=== PATIENT | female | born 1950 | race Caucasian/White ===

== ENCOUNTER 2016-10-13 11:00 | Inpatient (IN) | payer MEDICARE ==
[~2016-10-13 11:00] MED LIST: Buffered Lidocaine 1% SYRIN* 3 ML/SYR SYRINGE INTRADERM ONE; Dexamethasone TAB* 4 MG ONE; Dexamethasone TAB* 4 MG PO ONE; Famotidine IV* 10 MG/ML 2 ML (20 mg) IV ONE; Famotidine IV* 10 MG/ML 2 ML (20 mg) ONE; Gabapentin CAP(*) 300 MG ONE; Gabapentin CAP(*) 300 MG PO ONE; Morphine INJ* 2 MG/ML 1 ML SYRINGE IV PRN; PROCHLORPERAZINE INJ 5 MG/ML 2 ML VIAL IV PRN; fentaNYL* 50 MCG/ML 2 ML VIAL (100 MCG VIAL) IV PRN; oxyCODONE/Acetamin 5/325 MG* TAB PO PRN
[2016-10-13] MEDS ORDERED: Oxymetazoline 0.05% NASAL SPR* 15 ML BTL ONE (12:03)
[2016-10-13] MEDS ORDERED: EPINEPHrine AMP 1 MG/ML ONE (12:03)
[2016-10-13] MEDS ORDERED: Lidocaine 4% TOPICAL* 50 ML TOP.SOLN ONE (12:03)
[2016-10-13] MEDS ORDERED: KETAMINE HCL* 50 MG/ML 10 ML VIAL ONE (12:08)
[2016-10-13] MEDS ORDERED: Midazolam* 1 MG/ML 5 ML VIAL (5 MG) ONE (12:08)
[2016-10-13] MEDS ORDERED: fentaNYL* 50 MCG/ML 2 ML VIAL (100 MCG VIAL) ONE (12:08)
[2016-10-13] MEDS ORDERED: Atracurium* 10 MG/ML 10 ML VIAL ONE (12:08)
[2016-10-13] MEDS ORDERED: Phenylephrine INJ* 10 MG/ML 1 ML VIAL (10 MG) ONE (12:09)
[2016-10-13] MEDS ORDERED: Lidocaine 1% MPF wEPI 200,000* 30 ML SDV ONE (12:55)
[2016-10-13] MEDS ORDERED: Lidocaine 2% PF* 5 ML VIAL ONE (13:20)
[2016-10-13] MEDS ORDERED: Neostigmine Methylsulfate* 2 MG/2 ML SYRINGE ONE (13:20)
[2016-10-13] MEDS ORDERED: Propofol* 10 MG/ML 20 ML BTL IV PUSH ONE (13:20)
[2016-10-13] MEDS ORDERED: Glycopyrrolate IV* 0.2 MG/ML 1 ML VIAL ONE (13:20)
[2016-10-13] MEDS ORDERED: Ondansetron INJ* 2 MG/ML VIAL ONE (13:21)
[2016-10-13] MEDS ORDERED: Morphine INJ* 2 MG/ML 1 ML SYRINGE ONE (13:57)
[2016-10-13] MEDS ORDERED: Albuterol 2.5 MG/3 ML NEB.SOL* (0.083%) ONE (13:59)
[2016-10-13] MEDS ORDERED: Morphine INJ* 4 MG/ML 1 ML SYRINGE ONE ×2 (14:02→14:10)
[2016-10-13] MEDS ORDERED: LORazepam INJ* 2 MG/ML 1 ML VIAL ONE (14:08)
[2016-10-13] MEDS ORDERED: Morphine INJ* 2 MG/ML 1 ML SYRINGE IV ONE (14:26)
[2016-10-13] MEDS ORDERED: Morphine INJ* 4 MG/ML 1 ML SYRINGE IV ONE ×2 (14:26)
[2016-10-13] MEDS ORDERED: LORazepam INJ* 2 MG/ML 1 ML VIAL IV PUSH ONE ×2 (14:27)
--- NOTE | 2016-10-13 15:13 | PN ---
Progress Note - Progress Note Note: CRITICAL CARE MEDICINE DATE: 10/13/16 TIME: 1430 PRIMARY CARE PROVIDER: Kady REFERRING PROVIDER: Neeta REASON/CHIEF COMPLAINT: post op elective trach HISTORY OF PRESENT ILLNESS: 66 F with h/o throat ca s/p chemo, xrt this past fall, moved her from [place] and presented to ENT with laryngeal edema and airway compromise needing semi-urgent trach. No issues intraop today and recovery phase in ICU. D/w Dr. Santacruz and [place]. Pt off vent and o2 maintained but post anesthesia c/o "can't breath". Prolonged exhalation. Bloody secretions from #6 cuffed fenestrated trach. Dropped cuff to help flow. Given morphine and ativan in succession and some better flow states but still showing signs of air hunger. Again sats fine on 40% tc and hr 70s; bp on the rise. Albuterol neb given and not great change. Further sedatives. Pt still with complaint. Placed on cpap via vent and will allow her to equilibrate her flow status and new trach resistance before she puts herself into neg pressure diastolic failure. REVIEW OF SYSTEMS: As per HPI. PAST MEDICAL HISTORY: As per HPI. 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 ALLERGIES: PCN. SOCIAL HISTORY: Reviewed. +tob. daughter present. FAMILY HISTORY: Noncontributory at present. PHYSICAL EXAM: Vital Signs: Reviewed. as above on exaam Neurologic: awake, communicating, nonfocal. very anxious HEENT: anicteric, trach [address] Cardiovascular: distant, S1, S2 Respiratory: dec bs bl R>L. supraclavicular bullae Abdomen: obese, soft Extremities: no edema, warm, chronic changes Access: piv LABS: Reviewed. IMAGING: Reviewed. MEDICATIONS: Reviewed. ASSESSMENT: 66 F s/p trach for laryngeal edema/obstruction acute post op, non thoracic, resp failure currently with copd exac component - more sec to flow phases of obstructive resistance rather then inflammation trigger. severe anxiety disorder tobacco abuse PLAN: Neurologic: needs anxiolytics now plus morphine to allow her to equilibrate better flow states and exhalation phase. Cardiovascular: perfused. receiving post op fluids. Respiratory: place on cpap. community living coach use with trach. allow her to equilibrate with cpap over next hour or so and then return off to tc. check cxr and looks stable. etco2 high 30s. keep nebs, rx. Gastrointestinal: npo currently. would give her oral intake a break and allow edema to improve prior to re-into food when off vent and with swallow eval and coaching for diet. had prior peg but did not use. Renal/Metabolic: lytes ok for preop check. can eval tomorrow as needed. Infectious Disease: standard scip needs Hematology: was anemic. can f/u in am. Endocrine: no need currently for steroids sec to copd component, but f/u any needs Musculoskeletal: oob as able. see if she will need pt Psych/Social: resume rx with po. family updated Supportive and preventative care as ordered. SUP: ppi VTE prophylaxis: heparin Weinstein catheter given critical illness, monitoring needs for accurate assessment of NAOMI and KDIGO criteria for critically ill patients and to avoid potential harms of urinary retention, skin breakdown/ulcers. Disposition: ICU Code Status: Full D/w Dr. Barr Critical Care Time: 45min F. Gerald Ballesteros DO
--- NOTE | 2016-10-13 15:17 | RAD ---
INDICATION: Status post tracheostomy, shortness of breath. COMPARISON: Comparison is made with a prior chest x-ray study from June 12, 2016. TECHNIQUE: A portable view of the chest was obtained. FINDINGS: The patient is status post tracheostomy. There is a tracheostomy tube which projects over the midline. The heart appears mildly enlarged. There is mild diffuse prominence of the interstitial markings. The lungs are underinflated. IMPRESSION: FINDINGS SUGGESTIVE OF CONGESTIVE HEART FAILURE.
[2016-10-13] MEDS: Albuterol 2.5 MG/3 ML NEB.SOL* (0.083%) INH SCH ×2 (16:19→19:43)
[2016-10-13] MEDS ORDERED: Ondansetron INJ* 2 MG/ML VIAL IV PRN (16:42)
[2016-10-13] MEDS ORDERED: Acetaminophen TAB* 325 MG PO PRN (18:17)
[2016-10-13] MEDS: LORazepam INJ* 2 MG/ML 1 ML VIAL IV PUSH PRN (20:13)
[2016-10-13] MEDS: Heparin VIAL(*) 5000 UNITS/ML VIAL (FIVE THOUSAND) SUBCUT SCH (22:27)
[2016-10-14] MEDS: Albuterol 2.5 MG/3 ML NEB.SOL* (0.083%) INH SCH ×4 (01:03→19:15)
[2016-10-14] MEDS: fentaNYL* 50 MCG/ML 2 ML VIAL (100 MCG VIAL) IV SLOW PU PRN ×6 (01:11→18:13)
--- NOTE | 2016-10-14 01:30 | OP ---
DATE OF OPERATION: 10/13/16 - ROOM #ICU-05 DATE OF : 48 SURGEON: Paulo Barr MD FLOOR WAXER: Alec House MD ANESTHESIOLOGIST: Haroon Doshi MD ANESTHESIA: General PRE-OP DIAGNOSIS: Personal history of laryngeal cancer with significant amount of laryngeal edema and pending airway obstruction. POST-OP DIAGNOSIS: Personal history of laryngeal cancer with significant amount of laryngeal edema and pending airway obstruction. OPERATIVE PROCEDURE: Tracheostomy under local anesthesia followed by laryngoscopy under general anesthesia. COMPLICATIONS: None. DISPOSITION: Good. SPECIMEN: None. ESTIMATED BLOOD LOSS: Minimal. DESCRIPTION OF PROCEDURE: The patient was taken to the operating room, put on a semi-recumbent position on the operating room table. She was being monitored and given oxygen. Her neck was prepped with Betadine. She was draped and then injected with 1% lidocaine with 1:100,000 epinephrine. A vertical incision was made over the anterior trachea. The anterior fat was defatted. The median raphe was opened and strap muscles retracted laterally. The isthmus of the thyroid was cut, revealing the anterior tracheal wall. An 11 blade was used to open up her tracheal rings widened with a Barnett. #6 Shiley was placed. Some Surgicel was placed around this. The trach was sutured in place. Trach tie placed. While we were finishing up, she was converted over to a full general anesthesia. She was turned and draped for laryngoscopy. She has lot of laryngeal edema, edematous material hooding her epiglottis. The vocal cords did appear clear. There was nothing that what was apparent for cancer. ASSESSMENT: The patient is doing well. Transferred out of the operating room in stable condition. [id number]/CPS #: [id number] [facility]
[2016-10-14 06:03] LABS: Hematocrit 25 % (35-47); Hemoglobin 7.8 g/dl (12.0-16.0); Mean Corpuscular HGB Conc 31 g/dl (31-36); Mean Corpuscular Hemoglobin 24 pg (27-31); Mean Corpuscular Volume 77 fL (80-97); Mean Platelet Volume 8 um3 (7.4-10.4); Red Blood Count 3.22 10^6/ul (4.0-5.4); Red Cell Distribution Width 18 % (10.5-15); White Blood Count 6.6 10^3/ul (3.5-10.8)
[2016-10-14 06:19] LABS: BUN/Creatinine Ratio 25.8 (8-20); EGFR African American 81.4 (>60); EGFR Non-African American 63.3 (>60); Magnesium 1.8 mg/dL (1.9-2.7); Phosphorus 3.3 mg/dL (2.5-5.0); Potassium 3.9 mmol/L (3.5-5.0)
[2016-10-14] MEDS: Heparin VIAL(*) 5000 UNITS/ML VIAL (FIVE THOUSAND) SUBCUT SCH ×3 (06:41→21:20)
[2016-10-14] MEDS: Pantoprazole IV* 40 MG IV SCH (07:44)
[2016-10-14] MEDS: LORazepam INJ* 2 MG/ML 1 ML VIAL IV PUSH PRN ×3 (08:17→23:48)
[2016-10-14] MEDS ORDERED: Magnesium Sulfate 2 GM IV* 2 GM/50 ML BAG IVPB ONE (09:48)
--- NOTE | 2016-10-14 12:17 | PN ---
Progress Note - Progress Note Note: CRITICAL CARE MEDICINE DATE: 10/14/16 TIME: 830 SUBJECTIVE: Patient seen and examined. PHYSICAL EXAM: Vital Signs: Reviewed. Neurologic: awake, communicating, writing. less anxious HEENT: anicteric, trach [address] Cardiovascular: distant, S1, S2 Respiratory: dec bs but better phases Abdomen: obese, soft Extremities: no edema, warm Access: piv LABS: Reviewed. IMAGING: Reviewed. MEDICATIONS: Reviewed. ASSESSMENT: 66 F s/p trach for laryngeal edema/obstruction acute post op, non thoracic, resp failure - recovering severe anxiety disorder tobacco abuse PLAN: Neurologic: prn anxiolytics. pain management. Cardiovascular: perfused. gentle ivf today. Respiratory:will try to avoid further ppv. tc. cuff down. Gastrointestinal: npo currently. would give her time and test for swallow ability. told her to go slow with things and get it right - this seems difficult for her. Renal/Metabolic: lytes ok. replete mg Infectious Disease: no needs Hematology: was anemic pre-op and only mildly less. no indication for transfusion yet. Endocrine: ok Musculoskeletal: oob as able. Psych/Social: resume rx when po. family updated at bedside Supportive and preventative care as ordered. SUP: ppi VTE prophylaxis: heparin Weinstein catheter given critical illness, monitoring needs for accurate assessment of NAOMI and KDIGO criteria for critically ill patients and to avoid potential harms of urinary retention, skin breakdown/ulcers. Disposition: ICU today Code Status: Full Critical Care Time: 30min Donta Ballesteros DO
[2016-10-14] MEDS: D5W 20 MEQ KCL 1000 ML BAG* 1,000 ML IV SCH (13:37)
[2016-10-15] MEDS: Albuterol 2.5 MG/3 ML NEB.SOL* (0.083%) INH SCH ×4 (01:18→21:24)
[2016-10-15] MEDS: fentaNYL* 50 MCG/ML 2 ML VIAL (100 MCG VIAL) IV SLOW PU PRN ×5 (02:50→23:39)
[2016-10-15] MEDS: D5W 20 MEQ KCL 1000 ML BAG* 1,000 ML IV SCH (03:08)
[2016-10-15] MEDS: Heparin VIAL(*) 5000 UNITS/ML VIAL (FIVE THOUSAND) SUBCUT SCH ×3 (06:56→20:55)
[2016-10-15] MEDS: LORazepam INJ* 2 MG/ML 1 ML VIAL IV PUSH PRN ×3 (07:14→21:08)
[2016-10-15] MEDS: Pantoprazole IV* 40 MG IV SCH (09:23)
[2016-10-15] MEDS ORDERED: D5W 20 MEQ KCL 1000 ML BAG* 1,000 ML IV SCH (10:30)
[2016-10-15] MEDS ORDERED: cloNIDine 0.1 MG PATCH* 0.1 MG/24 HR 7 DAY PATCH TRANSDERM SCH (11:00)
--- NOTE | 2016-10-15 11:07 | PN ---
Progress Note - Progress Note Note: CRITICAL CARE MEDICINE DATE: 10/15/16 TIME: 825 SUBJECTIVE: Patient seen and examined. PHYSICAL EXAM: Vital Signs: Reviewed. Neurologic: awake, communicating. less anxious, but little tires. HEENT: anicteric, trach 6 Cardiovascular: distant, S1, S2 Respiratory: dec overall bs but stable Abdomen: obese, soft Extremities: no edema, warm Access: piv LABS: Reviewed. IMAGING: Reviewed. MEDICATIONS: Reviewed. ASSESSMENT: 66 F s/p trach for laryngeal edema/obstruction acute post op, non thoracic, resp failure - recovering copd severe anxiety disorder tobacco abuse PLAN: Neurologic: prn anxiolytics. pain management. stable. Cardiovascular: perfused. dec ivf today. bp remains up. with lack of po and anxiety ailment, trial 0.1mg td clonidine for few days to see if beneifit combo until taking po and then convert to alternatives as needed. Respiratory: tello. trach education and equilibration continues. nebs. Gastrointestinal: npo currently. swallow eval sunday am. see how she does and hope to avoid ng. on d5 for now. Renal/Metabolic: check bmp robinson. Infectious Disease: no needs Hematology: f/u cbc in am. Endocrine: ok Musculoskeletal: oob. pt if needed Psych/Social: resume rx when po. family updated at bedside Supportive and preventative care as ordered. SUP: ppi VTE prophylaxis: heparin Disposition: ICU today given rescue suctioning this am and floor tomorrow Code Status: Full Critical Care Time: 25min Donta Ballesteros DO
[2016-10-16] MEDS: Albuterol 2.5 MG/3 ML NEB.SOL* (0.083%) INH SCH ×4 (01:00→21:21)
[2016-10-16] MEDS: LORazepam INJ* 2 MG/ML 1 ML VIAL IV PUSH PRN ×3 (01:05→14:22)
[2016-10-16 05:56] LABS: Hematocrit 26 % (35-47); Hemoglobin 8.2 g/dl (12.0-16.0); Mean Corpuscular HGB Conc 32 g/dl (31-36); Mean Corpuscular Hemoglobin 24 pg (27-31); Mean Corpuscular Volume 76 fL (80-97); Mean Platelet Volume 7 um3 (7.4-10.4); Red Blood Count 3.42 10^6/ul (4.0-5.4); Red Cell Distribution Width 18 % (10.5-15)
[2016-10-16] MEDS: Heparin VIAL(*) 5000 UNITS/ML VIAL (FIVE THOUSAND) SUBCUT SCH ×3 (05:57→21:58)
[2016-10-16 06:12] LABS: BUN/Creatinine Ratio 12.2 (8-20); Calcium 8.7 mg/dL (8.6-10.3); EGFR African American 100.7 (>60); EGFR Non-African American 78.3 (>60); Phosphorus 3.3 mg/dL (2.5-5.0); Potassium 3.7 mmol/L (3.5-5.0)
[2016-10-16] MEDS: fentaNYL* 50 MCG/ML 2 ML VIAL (100 MCG VIAL) IV SLOW PU PRN ×2 (06:30→11:53)
[2016-10-16] MEDS: Pantoprazole IV* 40 MG IV SCH (08:49)
[2016-10-16] MEDS ORDERED: clonazePAM TAB(*) 0.5 MG PO PRN (12:36)
--- NOTE | 2016-10-16 12:45 | PN ---
Progress Note - Progress Note Note: CRITICAL CARE MEDICINE DATE: 10/16/16 TIME: 930 SUBJECTIVE: Patient seen and examined. PHYSICAL EXAM: Vital Signs: Reviewed. Neurologic: awake, communicating. HEENT: anicteric, trach 6 Cardiovascular: distant, S1, S2 Respiratory: dec overall bs but stable Abdomen: obese, soft Extremities: no edema, warm Access: piv LABS: Reviewed. IMAGING: Reviewed. MEDICATIONS: Reviewed. ASSESSMENT/PLAN: 66 F s/p trach for laryngeal edema/obstruction - ENT f/u; resp f/u for trach care needs. social work f/u for dispo planning acute post op, non thoracic, resp failure - recovering; o2 copd - neb management. O2. did not require steroids. f/u out rx needs. severe anxiety disorder - antivan, prn xanax HTN - start to add back home meds. on clonidine td already and adding back bb and acei. depression - prosac resumed tobacco abuse - re-discuss plans advance diet now that she has passed swallow. oob. ambulate. Supportive and preventative care as ordered. SUP: ppi po VTE prophylaxis: heparin Disposition: to surg floor Code Status: Full Critical Care Time: 25min FBryan Ballesteros DO
[2016-10-16] MEDS ORDERED: Spiriva Inhaler DEVICE* 1 EACH DEVICE INH ONE (15:00)
[2016-10-16] MEDS: Tiotropium CAP.INH* CAP.INH/18 MCG INH SCH (16:38)
[2016-10-16] MEDS: FLUoxetine CAP* 20 MG PO SCH (16:41)
[2016-10-16] MEDS: oxyCODONE ORAL.SOLN* 5 MG/5 ML UDC PO PRN ×2 (16:47→21:17)
[2016-10-16] MEDS: Metoprolol Tartrate TAB* 50 mg PO SCH (21:15)
[2016-10-16] MEDS: Albuterol/Ipratropium NEB.SOL* Albuterol 2.5 MG/Ipratropium 0.5 MG 3 ML INH SCH (21:21)
[2016-10-16] MEDS: Budesonide NEB* 0.5 MG/2 ML NEB.SOLN INH SCH (21:21)
[2016-10-17] MEDS: Albuterol/Ipratropium NEB.SOL* Albuterol 2.5 MG/Ipratropium 0.5 MG 3 ML INH SCH ×4 (05:38→20:40)
[2016-10-17] MEDS: Omeprazole CAP* 20 MG PO SCH (05:56)
[2016-10-17] MEDS: Heparin VIAL(*) 5000 UNITS/ML VIAL (FIVE THOUSAND) SUBCUT SCH ×3 (05:57→22:17)
[2016-10-17] MEDS: Budesonide NEB* 0.5 MG/2 ML NEB.SOLN INH SCH ×2 (07:55→20:39)
[2016-10-17] MEDS: Tiotropium CAP.INH* CAP.INH/18 MCG INH SCH (07:55)
[2016-10-17] MEDS: Metoprolol Tartrate TAB* 50 mg PO SCH (09:46)
[2016-10-17] MEDS: oxyCODONE ORAL.SOLN* 5 MG/5 ML UDC PO PRN ×3 (09:51→22:16)
[2016-10-17] MEDS: Aspirin EC Low Dose* 81 MG TAB.EC PO SCH (09:53)
[2016-10-17] MEDS: FLUoxetine CAP* 20 MG PO SCH (09:53)
[2016-10-17] MEDS: Lisinopril TAB* 5 MG PO SCH (09:53)
[2016-10-17] MEDS: Theophylline TAB* 300 MG PO SCH (10:01)
--- NOTE | 2016-10-17 11:48 | PN ---
Subjective Date of Service: 10/17/16 Interval History: Pt is feeling ok. She was just working with speech therapy doing a blue dye test. She is having a harder time with the nectar thick liquids and has been coughing after taking in some of the water with blue dye. She c/o pain all over but states that is her regular. Objective Active Medications: Acetaminophen (Tylenol Tab*) 650 mg PO Q4H PRN PRN Reason: PAIN Albuterol (Ventolin 2.5 Mg/3 Ml Neb.Zoe*) 2.5 mg INH Q2H PRN PRN Reason: SOB/WHEEZING Albuterol/Ipratropium (Duoneb (Albuterol 2.5 Mg/Ipratropium 0.5 Mg)) 1 neb INH [id number] AWAKE [facility] Last Admin: 10/17/16 07:55 Dose: 1 neb Aspirin (Aspirin Ec Low Dose*) 81 mg PO DAILY [facility] Last Admin: 10/17/16 09:53 Dose: 81 mg Budesonide (Pulmicort Neb*) 0.5 mg INH RT.BID [facility] Last Admin: 10/17/16 07:55 Dose: 0.5 mg Fluoxetine HCl (Prozac Cap*) 40 mg PO DAILY [facility] Last Admin: 10/17/16 09:53 Dose: 40 mg Heparin Sodium (Porcine) (Heparin Vial(*)) 5,000 units SUBCUT Q8HR [facility] Last Admin: 10/17/16 05:57 Dose: 5,000 units Lisinopril (Prinivil Tab*) 5 mg PO DAILY [facility] Last Admin: 10/17/16 09:53 Dose: 5 mg Lorazepam (Ativan Inj*) 1 mg IV PUSH Q4H PRN PRN Reason: ANXIETY Last Admin: 10/16/16 14:22 Dose: 1 mg Metoprolol Tartrate (Lopressor Tab*) 25 mg PO Q12HR [facility] Omeprazole (Prilosec Cap*) 20 mg PO DAILY@0600 [facility] Last Admin: 10/17/16 05:56 Dose: 20 mg Ondansetron HCl (Zofran Inj*) 4 mg IV Q6H PRN PRN Reason: NAUSEA Oxycodone HCl (Oxycodone Oral.Soln*) 5 mg PO Q4H PRN PRN Reason: PAIN Last Admin: 10/17/16 09:51 Dose: 5 mg Oxycodone HCl (Oxycodone Oral.Soln*) 10 mg PO Q4H PRN PRN Reason: PAIN - SEVERE Last Admin: 10/16/16 16:47 Dose: 10 mg Theophylline (Aayush Dur*) 300 mg PO DAILY [facility] Last Admin: 10/17/16 10:01 Dose: 300 mg Tiotropium [place] (Spiriva Cap.Inh*) 1 cap INH DAILY [facility] Last Admin: 10/17/16 07:55 Dose: 1 cap Vital Signs 10/16/16 10/16/16 10/16/16 11:53 12:56 14:12 Temperature 98.1 F Pulse Rate 100 78 Respiratory 20 18 20 Rate Blood Pressure 145/59 (mmHg) O2 Sat by Pulse 96 98 Oximetry 10/16/16 10/16/16 10/16/16 14:22 15:10 15:22 Temperature 98.8 F Pulse Rate 73 Respiratory 20 18 20 Rate Blood Pressure 145/63 (mmHg) O2 Sat by Pulse 100 Oximetry 10/16/16 10/16/16 10/16/16 16:47 18:47 19:15 Temperature Pulse Rate Respiratory 20 16 18 Rate Blood Pressure (mmHg) O2 Sat by Pulse 98 Oximetry 10/16/16 10/16/16 10/16/16 19:27 21:15 21:17 Temperature 99.0 F Pulse Rate 88 Respiratory 18 20 15 Rate Blood Pressure 137/55 (mmHg) O2 Sat by Pulse 96 Oximetry 10/16/16 10/16/16 10/16/16 21:31 23:15 23:16 Temperature 98.1 F Pulse Rate 88 57 Respiratory 15 16 15 Rate Blood Pressure 110/41 (mmHg) O2 Sat by Pulse 96 99 Oximetry 10/16/16 10/17/16 10/17/16 23:17 03:22 07:19 Temperature 97.2 F Pulse Rate 55 Respiratory 16 18 18 Rate Blood Pressure 149/62 (mmHg) O2 Sat by Pulse 94 Oximetry 10/17/16 10/17/16 10/17/16 07:50 07:56 09:00 Temperature 98.4 F Pulse Rate 53 53 54 Respiratory 20 20 Rate Blood Pressure 123/51 (mmHg) O2 Sat by Pulse 98 99 Oximetry 10/17/16 10/17/16 10/17/16 09:29 09:51 11:25 Temperature 98.5 F Pulse Rate 55 Respiratory 20 20 18 Rate Blood Pressure 112/43 (mmHg) O2 Sat by Pulse 95 Oximetry Appearance: Middle aged female sitting up in a chair, NAD Eyes: No Scleral Icterus Ears/Nose/Mouth/Throat: Mucous Membranes Moist, - - tracheostomy in place with passey reinaldo valve. Respiratory: Symmetrical Chest Expansion and Respiratory Effort, Clear to Auscultation Cardiovascular: NL Sounds; No Murmurs; No JVD, RRR, No Edema Abdominal: NL Sounds; No Tenderness; No Distention Extremities: No Clubbing, Cyanosis Skin: No Rash or Ulcers, No Nodules or Sclerosis Neurological: Alert and Oriented x 3 Result Diagrams: 10/16/16 05:45 10/16/16 05:45 Microbiology and Other Data: Microbiology 10/13/16 14:47 Nasal Screen MRSA (PCR)([facility]UNICE) - Final Nasal Mrsa Negative Assess/Plan/Problems-Billing Ms Doherty is a 66 yo F wiht a h/o head and neck cancer s/p treatment this fall with XRT and chemo and HTN who presented to the hospital on a semi urgent basis from the ENT office for tracheostomy placement for severe laryngeal edema/ obstruction with high likelihood of poor outcome with even a minor respiratory illness. - Patient Problems (1) Status post tracheostomy Current Visit: Yes Status: Acute Code(s): Z93.0 - TRACHEOSTOMY STATUS SNOMED Code(s): 658615696 Comment: Managment per ENT. She is in the process of determinine what consistency foods/liquids to take in. She is not requiring any supplemental O2 and she has been tolerating the passy reinaldo valve. (2) Primary squamous cell carcinoma of supraglottis Current Visit: Yes Status: Acute Code(s): C32.1 - MALIGNANT NEOPLASM OF SUPRAGLOTTIS SNOMED Code(s): 886119121 Comment: The patient is s/p chemo/XRT for supraglottic squamous cell ca. She was seen as an outpatient by Dr. Barr who identified the patient had severe airway compromise. She is now s/p tracheostomy. She will need to continue to follow with ENT and likely oncology. (3) COPD (chronic obstructive pulmonary disease) Current Visit: Yes Status: Acute Code(s): J44.9 - CHRONIC OBSTRUCTIVE PULMONARY DISEASE, UNSPECIFIED SNOMED Code(s): 40560788 Comment: Post-operatively the patient had acute respiratory failure following a non-thoracic surgery. The patient needed to be on the ventilator for a period of time following surgery. There was likely a component of COPD driving her failure. Continue nebs. No signs of exacerbation at this time. (4) HTN (hypertension) Current Visit: Yes Status: Acute Code(s): I10 - ESSENTIAL (PRIMARY) HYPERTENSION SNOMED Code(s): 26672454 Comment: BP is under good control. Stop clonidine patch as she has been restarted on her home medication regimen. Monitor BP with removal of clonidine patch. (5) Anxiety Current Visit: Yes Status: Acute Code(s): F41.9 - ANXIETY DISORDER, UNSPECIFIED SNOMED Code(s): 63169430 Comment: Continue prozac and prn ativan. (6) DVT prophylaxis Current Visit: Yes Status: Acute Code(s): [id number] - SNOMED Code(s): 451547858 Comment: SQ heparin (7) Full code status Current Visit: Yes Status: Acute Code(s): Z78.9 - OTHER SPECIFIED HEALTH STATUS SNOMED Code(s): 432279060
[2016-10-17] MEDS ORDERED: clonazePAM TAB(*) 0.5 MG ONE (15:09)
[2016-10-17] MEDS: clonazePAM TAB(*) 0.5 MG PO PRN ×2 (15:09→21:49)
[2016-10-17] MEDS: Metoprolol Tartrate TAB* 25 MG PO SCH (21:49)
[2016-10-18] MEDS: Albuterol/Ipratropium NEB.SOL* Albuterol 2.5 MG/Ipratropium 0.5 MG 3 ML INH SCH ×4 (01:00→19:49)
[2016-10-18] MEDS: Heparin VIAL(*) 5000 UNITS/ML VIAL (FIVE THOUSAND) SUBCUT SCH ×3 (06:17→21:58)
[2016-10-18] MEDS: Omeprazole CAP* 20 MG PO SCH (06:22)
[2016-10-18] MEDS: oxyCODONE ORAL.SOLN* 5 MG/5 ML UDC PO PRN ×5 (06:23→21:57)
[2016-10-18] MEDS: Tiotropium CAP.INH* CAP.INH/18 MCG INH SCH (07:00)
[2016-10-18] MEDS: Budesonide NEB* 0.5 MG/2 ML NEB.SOLN INH SCH ×2 (07:13→19:49)
[2016-10-18] MEDS: Aspirin EC Low Dose* 81 MG TAB.EC PO SCH (09:08)
[2016-10-18] MEDS: Lisinopril TAB* 5 MG PO SCH (09:08)
[2016-10-18] MEDS: Theophylline TAB* 300 MG PO SCH (09:08)
[2016-10-18] MEDS: clonazePAM TAB(*) 0.5 MG PO PRN ×3 (09:08→23:59)
[2016-10-18] MEDS: Metoprolol Tartrate TAB* 25 MG PO SCH ×3 (09:09→21:57)
[2016-10-18] MEDS: FLUoxetine CAP* 20 MG PO SCH (09:09)
[2016-10-18] MEDS ORDERED: oxyCODONE TAB* 5 MG TAB PO ONE (09:10)
--- NOTE | 2016-10-18 09:28 | PN ---
Subjective Date of Service: 10/18/16 Interval History: Pt is feeling ok. She states Dr. Barr just changed her trach and now she is having pain. She states that she is having some SOB. She was recently deep suctioned. Objective Active Medications: Acetaminophen (Tylenol Tab*) 650 mg PO Q4H PRN PRN Reason: PAIN Albuterol (Ventolin 2.5 Mg/3 Ml Neb.Zoe*) 2.5 mg INH Q2H PRN PRN Reason: SOB/WHEEZING Albuterol/Ipratropium (Duoneb (Albuterol 2.5 Mg/Ipratropium 0.5 Mg)) 1 neb INH [id number] AWAKE [facility] Last Admin: 10/18/16 07:13 Dose: 1 neb Aspirin (Aspirin Ec Low Dose*) 81 mg PO DAILY [facility] Last Admin: 10/18/16 09:08 Dose: 81 mg Budesonide (Pulmicort Neb*) 0.5 mg INH RT.BID [facility] Last Admin: 10/18/16 07:13 Dose: 0.5 mg Clonazepam (Klonopin Tab(*)) 0.5 mg PO TID PRN PRN Reason: ANXIETY Last Admin: 10/18/16 09:08 Dose: 0.5 mg Fluoxetine HCl (Prozac Cap*) 40 mg PO DAILY [facility] Last Admin: 10/18/16 09:09 Dose: 40 mg Heparin Sodium (Porcine) (Heparin Vial(*)) 5,000 units SUBCUT Q8HR [facility] Last Admin: 10/18/16 06:17 Dose: 5,000 units Lisinopril (Prinivil Tab*) 5 mg PO DAILY [facility] Last Admin: 10/18/16 09:08 Dose: 5 mg Metoprolol Tartrate (Lopressor Tab*) 25 mg PO Q12HR [facility] Last Admin: 10/18/16 09:09 Dose: 25 mg Omeprazole (Prilosec Cap*) 20 mg PO DAILY@0600 [facility] Last Admin: 10/18/16 06:22 Dose: 20 mg Ondansetron HCl (Zofran Inj*) 4 mg IV Q6H PRN PRN Reason: NAUSEA Oxycodone HCl (Oxycodone Oral.Soln*) 5 mg PO Q4H PRN PRN Reason: PAIN Last Admin: 10/18/16 09:10 Dose: 5 mg Oxycodone HCl (Oxycodone Oral.Soln*) 10 mg PO Q4H PRN PRN Reason: PAIN - SEVERE Last Admin: 10/16/16 16:47 Dose: 10 mg Theophylline (Aayush Dur*) 300 mg PO DAILY [facility] Last Admin: 10/18/16 09:08 Dose: 300 mg Tiotropium [place] (Spiriva Cap.Inh*) 1 cap INH DAILY [facility] Last Admin: 10/18/16 07:00 Dose: Not Given Vital Signs 10/17/16 10/17/16 10/17/16 09:29 09:51 11:25 Temperature 98.5 F Pulse Rate 55 Respiratory 20 20 18 Rate Blood Pressure 112/43 (mmHg) O2 Sat by Pulse 95 Oximetry 10/17/16 10/17/16 10/17/16 11:51 12:35 15:09 Temperature Pulse Rate 52 Respiratory 20 16 20 Rate Blood Pressure (mmHg) O2 Sat by Pulse 99 Oximetry 10/17/16 10/17/16 10/17/16 15:23 15:24 16:05 Temperature 98.2 F Pulse Rate 63 62 Respiratory 19 20 Rate Blood Pressure 117/34 (mmHg) O2 Sat by Pulse 92 94 Oximetry 10/17/16 10/17/16 10/17/16 17:09 17:24 19:28 Temperature 97.9 F Pulse Rate 59 Respiratory 21 21 20 Rate Blood Pressure 98/37 (mmHg) O2 Sat by Pulse 92 Oximetry 10/17/16 10/17/16 10/17/16 19:32 20:40 21:49 Temperature Pulse Rate 61 70 Respiratory 24 Rate Blood Pressure 107/45 (mmHg) O2 Sat by Pulse 97 Oximetry 10/17/16 10/17/16 10/17/16 22:00 22:16 23:37 Temperature 98.2 F Pulse Rate 52 Respiratory 24 24 22 Rate Blood Pressure 117/48 (mmHg) O2 Sat by Pulse 98 Oximetry 10/17/16 10/18/16 10/18/16 23:49 00:16 04:06 Temperature 98.0 F Pulse Rate 47 Respiratory 24 24 20 Rate Blood Pressure 120/55 (mmHg) O2 Sat by Pulse 98 Oximetry 10/18/16 10/18/16 10/18/16 06:23 07:51 08:23 Temperature Pulse Rate 55 Respiratory 24 18 18 Rate Blood Pressure (mmHg) O2 Sat by Pulse 92 Oximetry 10/18/16 10/18/16 09:08 09:10 Temperature Pulse Rate Respiratory 20 20 Rate Blood Pressure (mmHg) O2 Sat by Pulse Oximetry Oxygen Devices in Use Now: - - Trach collar on though not directed at trach Appearance: Middle aged female sitting up in bed, NAD Eyes: No Scleral Icterus Ears/Nose/Mouth/Throat: Mucous Membranes Moist Neck: - - trach in place, creamy white mucous noted to be coughed up Respiratory: Symmetrical Chest Expansion and Respiratory Effort, Clear to Auscultation Cardiovascular: NL Sounds; No Murmurs; No JVD, RRR, No Edema Abdominal: NL Sounds; No Tenderness; No Distention, - - colostomy in place Extremities: No Clubbing, Cyanosis Skin: No Rash or Ulcers, No Nodules or Sclerosis Neurological: Alert and Oriented x 3 Result Diagrams: 10/16/16 05:45 10/16/16 05:45 Microbiology and Other Data: Microbiology 10/13/16 14:47 Nasal Screen MRSA (PCR)([facility]) - Final Nasal Mrsa Negative Assess/Plan/Problems-Billing Ms Doherty is a 66 yo F wiht a h/o head and neck cancer s/p treatment this fall with XRT and chemo and HTN who presented to the hospital on a semi urgent basis from the ENT office for tracheostomy placement for severe laryngeal edema/ obstruction with high likelihood of poor outcome with even a minor respiratory illness. - Patient Problems (1) Status post tracheostomy Current Visit: Yes Status: Acute Code(s): Z93.0 - TRACHEOSTOMY STATUS SNOMED Code(s): 687321092 Comment: The [facility] Barr believes that the patient is now ready for d/c home but will need to get all supplies ordered. 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 She was seen as an outpatient by Dr. Barr who identified the patient had severe airway compromise. She is now s/p tracheostomy. She will need to continue to follow with ENT and likely oncology. (3) COPD (chronic obstructive pulmonary disease) Current Visit: Yes Status: Acute Code(s): J44.9 - CHRONIC OBSTRUCTIVE PULMONARY DISEASE, UNSPECIFIED SNOMED Code(s): 44535270 Comment: Post-operatively the patient had acute respiratory failure following a non-thoracic surgery. The patient needed to be on the ventilator for a period of time following surgery. Pt is doing well from a respiratory standpoint. Continue nebs and humidified O2 to help keep secretions thin. (4) HTN (hypertension) Current Visit: Yes Status: Acute Code(s): I10 - ESSENTIAL (PRIMARY) HYPERTENSION SNOMED Code(s): 16738464 Comment: BP is under good control. Continue lisinopril and metoprolol at lower dose. (5) Anxiety Current Visit: Yes Status: Acute Code(s): F41.9 - ANXIETY DISORDER, UNSPECIFIED SNOMED Code(s): 45852409 Comment: Continue prozac and prn clonazepam. (6) DVT prophylaxis Current Visit: Yes Status: Acute Code(s): VJA2823 - SNOMED Code(s): 927583829 Comment: SQ heparin (7) Full code status Current Visit: Yes Status: Acute Code(s): Z78.9 - OTHER SPECIFIED HEALTH STATUS SNOMED Code(s): 950353576
[2016-10-18] MEDS: Albuterol 2.5 MG/3 ML NEB.SOL* (0.083%) INH PRN (16:32)
[2016-10-19] MEDS: Albuterol/Ipratropium NEB.SOL* Albuterol 2.5 MG/Ipratropium 0.5 MG 3 ML INH SCH ×3 (01:00→14:02)
[2016-10-19] MEDS: oxyCODONE ORAL.SOLN* 5 MG/5 ML UDC PO PRN ×3 (02:25→13:03)
[2016-10-19] MEDS: Albuterol 2.5 MG/3 ML NEB.SOL* (0.083%) INH PRN (02:48)
[2016-10-19] MEDS: Omeprazole CAP* 20 MG PO SCH (05:49)
[2016-10-19] MEDS: Heparin VIAL(*) 5000 UNITS/ML VIAL (FIVE THOUSAND) SUBCUT SCH ×2 (05:51→14:09)
[2016-10-19] MEDS: Tiotropium CAP.INH* CAP.INH/18 MCG INH SCH (07:03)
[2016-10-19] MEDS: Budesonide NEB* 0.5 MG/2 ML NEB.SOLN INH SCH (07:56)
[2016-10-19] MEDS: Metoprolol Tartrate TAB* 25 MG PO SCH (08:59)
[2016-10-19] MEDS: Aspirin EC Low Dose* 81 MG TAB.EC PO SCH (09:17)
[2016-10-19] MEDS: Lisinopril TAB* 5 MG PO SCH (09:17)
[2016-10-19] MEDS: FLUoxetine CAP* 20 MG PO SCH (09:18)
[2016-10-19] MEDS: Theophylline TAB* 300 MG PO SCH (09:18)
--- NOTE | 2016-10-19 11:21 | PN ---
Subjective Date of Service: 10/19/16 Interval History: Pt is feeling ok. She just got cleaned up. She denies any SOB. She feels ready for d/c. Objective Active Medications: Acetaminophen (Tylenol Tab*) 650 mg PO Q4H PRN PRN Reason: PAIN Albuterol (Ventolin 2.5 Mg/3 Ml Neb.Zoe*) 2.5 mg INH Q2H PRN PRN Reason: SOB/WHEEZING Last Admin: 10/19/16 02:48 Dose: 2.5 mg Albuterol/Ipratropium (Duoneb (Albuterol 2.5 Mg/Ipratropium 0.5 Mg)) 1 neb INH [id number] AWAKE [facility] [place] Last Admin: 10/19/16 07:57 Dose: 1 neb Aspirin (Aspirin Ec Low Dose*) 81 mg PO DAILY [facility] [place] Last Admin: 10/19/16 09:17 Dose: 81 mg Budesonide (Pulmicort Neb*) 0.5 mg INH RT.BID [facility] [place] Last Admin: 10/19/16 07:56 Dose: 0.5 mg Clonazepam (Klonopin Tab(*)) 0.5 mg PO TID PRN PRN Reason: ANXIETY Last Admin: 10/18/16 23:59 Dose: 0.5 mg Fluoxetine HCl (Prozac Cap*) 40 mg PO DAILY [facility] [place] Last Admin: 10/19/16 09:18 Dose: 40 mg Heparin Sodium (Porcine) (Heparin Vial(*)) 5,000 units SUBCUT Q8HR [facility] [place] Last Admin: 10/19/16 05:51 Dose: 5,000 units Lisinopril (Prinivil Tab*) 5 mg PO DAILY [facility] [place] Last Admin: 10/19/16 09:17 Dose: 5 mg Metoprolol Tartrate (Lopressor Tab*) 25 mg PO Q12HR [facility] [place] Last Admin: 10/19/16 08:59 Dose: Not Given Omeprazole (Prilosec Cap*) 20 mg PO DAILY@0600 [facility] [place] Last Admin: 10/19/16 05:49 Dose: 20 mg Ondansetron HCl (Zofran Inj*) 4 mg IV Q6H PRN PRN Reason: NAUSEA Oxycodone HCl (Oxycodone Oral.Soln*) 5 mg PO Q4H PRN PRN Reason: PAIN Last Admin: 10/18/16 18:13 Dose: 5 mg Oxycodone HCl (Oxycodone Oral.Soln*) 10 mg PO Q4H PRN PRN Reason: PAIN - SEVERE Last Admin: 10/19/16 08:22 Dose: 10 mg Theophylline (Aayush Dur*) 300 mg PO DAILY [facility] [place] Last Admin: 10/19/16 09:18 Dose: 300 mg Tiotropium [place] (Spiriva Cap.Inh*) 1 cap INH DAILY [facility] [place] Last Admin: 10/19/16 07:03 Dose: Not Given Vital Signs 10/18/16 10/18/16 10/18/16 12:00 12:48 14:04 Temperature 97.4 F Pulse Rate 55 50 Respiratory 17 18 18 Rate Blood Pressure 88/41 (mmHg) O2 Sat by Pulse 97 92 Oximetry 10/18/16 10/18/16 10/18/16 15:55 16:04 18:13 Temperature 97.4 F Pulse Rate 49 Respiratory 18 18 18 Rate Blood Pressure 97/47 (mmHg) O2 Sat by Pulse 97 Oximetry 10/18/16 10/18/16 10/18/16 19:45 19:49 19:55 Temperature 97.6 F Pulse Rate 55 55 Respiratory 24 14 Rate Blood Pressure 125/43 (mmHg) O2 Sat by Pulse 94 97 Oximetry 10/18/16 10/18/16 10/18/16 20:13 21:57 23:51 Temperature 99.1 F Pulse Rate 49 Respiratory 16 24 24 Rate Blood Pressure 107/52 (mmHg) O2 Sat by Pulse 91 Oximetry 10/18/16 10/18/16 10/19/16 23:57 23:59 01:59 Temperature Pulse Rate Respiratory 24 24 22 Rate Blood Pressure (mmHg) O2 Sat by Pulse Oximetry 10/19/16 10/19/16 10/19/16 02:25 02:49 04:25 Temperature Pulse Rate 50 Respiratory 24 24 22 Rate Blood Pressure (mmHg) O2 Sat by Pulse 100 Oximetry 10/19/16 10/19/16 10/19/16 07:57 08:00 08:01 Temperature 98.1 F Pulse Rate 53 47 Respiratory 17 18 18 Rate Blood Pressure 121/46 (mmHg) O2 Sat by Pulse 97 98 Oximetry 10/19/16 10/19/16 08:22 10:22 Temperature Pulse Rate Respiratory 19 19 Rate Blood Pressure (mmHg) O2 Sat by Pulse Oximetry Oxygen Devices in Use Now: None - trach in place with passy reinaldo valve Appearance: Middle aged female sitting up in bed, NAD Eyes: No Scleral Icterus Ears/Nose/Mouth/Throat: Mucous Membranes Moist Respiratory: Symmetrical Chest Expansion and Respiratory Effort, Clear to Auscultation Cardiovascular: NL Sounds; No Murmurs; No JVD, RRR, No Edema Abdominal: NL Sounds; No Tenderness; No Distention Extremities: No Clubbing, Cyanosis Skin: No Rash or Ulcers, No Nodules or Sclerosis Neurological: Alert and Oriented x 3 Result Diagrams: 10/16/16 05:45 10/16/16 05:45 Microbiology and Other Data: Microbiology 10/13/16 14:47 Nasal Screen MRSA (PCR)(EUNICE) - Final Nasal Mrsa Negative Assess/Plan/Problems-Billing Ms Doherty is a 66 yo F wiht a h/o head and neck cancer s/p treatment this fall with XRT and chemo and HTN who presented to the hospital on a semi urgent basis from the ENT office for tracheostomy placement for severe laryngeal edema/ obstruction with high likelihood of poor outcome with even a minor respiratory illness. - Patient Problems (1) Status post tracheostomy Current Visit: Yes Status: Acute Code(s): Z93.0 - TRACHEOSTOMY STATUS SNOMED Code(s): 482121263 Comment: The patient's trach was changed to a #6 Shiley yestserday AM. Plan is for d/c to pt's daughter's house this afternoon. 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 She was seen as an outpatient by Dr. Barr who identified the patient had severe airway compromise. She is now s/p tracheostomy. She will need to continue to follow with ENT and likely oncology. (3) COPD (chronic obstructive pulmonary disease) Current Visit: Yes Status: Acute Code(s): J44.9 - CHRONIC OBSTRUCTIVE PULMONARY DISEASE, UNSPECIFIED SNOMED Code(s): 73402430 Comment: Post-operatively the patient had acute respiratory failure following a non-thoracic surgery. The patient needed to be on the ventilator for a period of time following surgery. Pt is doing well from a respiratory standpoint. Continue nebs and humidified O2 to help keep secretions thin. (4) HTN (hypertension) Current Visit: Yes Status: Acute Code(s): I10 - ESSENTIAL (PRIMARY) HYPERTENSION SNOMED Code(s): 16583410 Comment: BP is under good control. Continue current medication regimen. (5) Anxiety Current Visit: Yes Status: Acute Code(s): F41.9 - ANXIETY DISORDER, UNSPECIFIED SNOMED Code(s): 89878605 Comment: Continue prozac and prn clonazepam. (6) DVT prophylaxis Current Visit: Yes Status: Acute Code(s): CNY4521 - SNOMED Code(s): 035817809 Comment: SQ heparin (7) Full code status Current Visit: Yes Status: Acute Code(s): Z78.9 - OTHER SPECIFIED HEALTH STATUS SNOMED Code(s): 646065616
[2016-10-19 11:57] VITALS: BP 100/44
--- NOTE | 2016-10-20 12:27 | DS ---
CC: Latesha Hillman MD DISCHARGE SUMMARY: DATE OF ADMISSION: 10/13/16 DATE OF DISCHARGE: 10/19/16 PRIMARY CARE PROVIDER: Latesha Hillman MD PRINCIPAL DIAGNOSES: 1. Severe airway edema with near obstruction requiring urgent tracheostomy placement. 2. History of head and neck squamous cell carcinoma. SECONDARY DIAGNOSES: 1. Chronic obstructive pulmonary disease. 2. Hypertension. 3. Anxiety. 4. Tobacco abuse. DISCHARGE MEDICATIONS: 1. Clonazepam 0.5 mg p.o. q.6 hours p.r.n. anxiety. 2. Requip 0.5 mg p.o. q.h.s. 3. Protonix 40 mg p.o. daily. 4. Lovastatin 20 mg p.o. daily. 5. Lisinopril 5 mg p.o. daily. 6. Gabapentin 300 mg p.o. b.i.d. 7. Lasix 40 mg p.o. daily. 8. Breo Ellipta one puff inhaled at bedtime. 9. Prozac 40 mg p.o. daily. 10. Baclofen 10 mg p.o. q.6 hours p.r.n. spasm. 11. Aspirin 81 mg p.o. daily. 12. Albuterol 2 puffs inhaled q.4 hours p.r.n. shortness of breath. 13. Albuterol neb one neb inhaled q.i.d. p.r.n. shortness of breath. 14. Percocet 10/325 one tablet p.o. q.4 hours p.r.n. pain. 15. Spiriva 1 puff inhaled daily. 16. Theophylline 300 mg p.o. daily. 17. Metoprolol tartrate 25 mg p.o. q.12 hours, presently reduced dose. HOSPITAL COURSE: Ms. Doherty is a 66-year-old female who was seen in consultation by Dr. Barr on the day of admission where he performed a flexible laryngoscopy, which revealed the nasopharynx m ucosa to be normal. It was found to be free and clear of tumor. The base of the tongue was felt to be normal. The epiglottis was noted to be absent, but the residual stump was edematous. The supra glottis revealed diffuse edema and irregular. The retinoid cartilages revealed redness and swelling . The false cords were edematous. The true vocal cords revealed limited mobility and uncompromised airway. The patient was sent to the hospital for admission for placement of tracheostomy. Followi ng the placement of the tracheostomy, the patient developed acute respiratory failure requiring ronald ining on the ventilator for a period of time. The patient subsequently was weaned from mechanical v entilation. With time, she has now been advanced to a #6 Shiley trach utilizing a Passy-Hillary valve. The patient is doing quite well with this. The patient in terms of her diet, however, is now requ iring a pureed diet with honey-thickened liquids. The patient has tolerated this okay. She is frus trated by the restrictions to her diet, however. She will need followup with Speech Therapy to get on the least restrictive diet necessary. Overall, the patient is doing well in terms of her respira tory standpoint. She has tolerated the tracheostomy without too much pain. She and her daughter og ve been taught tracheostomy care and they feel comfortable. At this point, the patient is going to be discharged to her daughter's home to recover. The patient will need to continue to follow up [facility] Dr. Barr. She likely will need followup with Oncology as well. FOLLOWUP CONCERNS: The patient is being discharged home today, 10/19/16. ACTIVITY LEVEL: As tolerated. DIET: Pureed with honey-thickened liquids. CONDITION ON DISCHARGE: Stable. FOLLOWUP: The patient should follow up with Dr. Hillman in the next 4 to 7 days. TIME SPENT: Thirty-five minutes was spent discharging this patient. [id number]/[facility] #: [id number]
== END 2016-10-19 16:45 | disposition home or self-care (01) | DRG 11 ==
LOC: AA 11:00 → ICU 13:58 → SSU 10-16 13:35
PROVIDERS: ADMIT Otolaryngology; ATTEND Hospitalist
PROC: 0B110F4 Bypass Trachea to Cutaneous with Tracheostomy Device, Open Approach (ICD-10-PCS; principal; 2016-10-19)
PROC: 5A1935Z Respiratory Ventilation, Less than 24 Consecutive Hours (ICD-10-PCS; 2016-10-19)
PROC: 0CJS8ZZ Inspection of Larynx, Via Natural or Artificial Opening Endoscopic (ICD-10-PCS; 2016-10-19)
DX: J38.4 Edema of larynx (principal); J95.821 Acute postprocedural respiratory failure; I11.0 Hypertensive heart disease with heart failure; I50.9 Heart failure, unspecified; J44.9 Chronic obstructive pulmonary disease, unspecified; F41.9 Anxiety disorder, unspecified; F17.210 Nicotine dependence, cigarettes, uncomplicated; Y83.8 Other surgical procedures as the cause of abnormal reaction of the patient, or of later complication, without mention of misadventure at the time of the procedure; Y92.239 Unspecified place in hospital as the place of occurrence of the external cause; Z79.82 Long term (current) use of aspirin; Z87.01 Personal history of pneumonia (recurrent); G47.33 Obstructive sleep apnea (adult) (pediatric); F32.9 Major depressive disorder, single episode, unspecified; K21.9 Gastro-esophageal reflux disease without esophagitis; E78.00 Pure hypercholesterolemia, unspecified; Z85.21 Personal history of malignant neoplasm of larynx; Z86.718 Personal history of other venous thrombosis and embolism; Z86.711 Personal history of pulmonary embolism; Z92.21 Personal history of antineoplastic chemotherapy; Z92.3 Personal history of irradiation; J98.8 Other specified respiratory disorders
CPT/HCPCS: 36415; 71010; 80048; 83735; 84100; 85027; 87641; 94003; 94640; 94667; 94668; 94760; A9270-GY; J0171; J1644; J2001; J2060; J2250; J2270; J2405; J2704; J3010

== ENCOUNTER 2016-10-23 13:59 | Inpatient (IN) | payer MEDICARE ==
[2016-10-23] MEDS ORDERED: NS 0.9% 1000 ML* 1,000 ML IV ONE (14:27)
[2016-10-23 14:45] LABS: Hematocrit 26 % (35-47); Mean Corpuscular HGB Conc 31 g/dl (31-36); Mean Corpuscular Hemoglobin 24 pg (27-31); Mean Corpuscular Volume 77 fL (80-97); Mean Platelet Volume 9 um3 (7.4-10.4); Red Blood Count 3.37 10^6/ul (4.0-5.4); Red Cell Distribution Width 18 % (10.5-15); White Blood Count 10.3 10^3/ul (3.5-10.8)
--- NOTE | 2016-10-23 14:53 | RAD ---
INDICATION: Respiratory distress COMPARISON: October 13, 2016 TECHNIQUE: An AP portable view obtained at 1436 hours is submitted. FINDINGS: Bones/Soft Tissues: There are no acute bony findings. There is a tracheostomy tube Cardiomediastinal: The correct silhouette is enlarged, unchanged. Lungs: There are no infiltrates. The interstitium is mildly prominent Pleura: Mild blunting the left costophrenic angle could reflect a small effusion. Other: None IMPRESSION: INTERSTITIAL CONGESTIVE FINDINGS HAVE LARGELY RESOLVED. THE CARDIAC SILHOUETTE REMAINS ENLARGED. THERE IS PROBABLY A SMALL LEFT-SIDED EFFUSION.
[2016-10-23 14:55] LABS: Troponin I 0.08 ng/mL (<0.04)
[2016-10-23 15:04] LABS: Albumin 3.3 g/dL (3.2-5.2); BUN/Creatinine Ratio 16.9 (8-20); C Reactive Protein 115.27 mg/L (< 5.00); Calcium 8.9 mg/dL (8.6-10.3); EGFR African American 26.4 (>60); EGFR Non-African American 20.5 (>60); Globulin 3.7 g/dL (2-4); Total Bilirubin 0.3 mg/dL (0.2-1.0)
[2016-10-23 15:38] LABS: Potassium 5.3 mmol/L (3.5-5.0)
[2016-10-23] MEDS ORDERED: Morphine INJ* 4 MG/ML 1 ML SYRINGE ONE (16:57)
[2016-10-23] MEDS: Morphine INJ* 4 MG/ML 1 ML SYRINGE IV PRN (17:03)
[2016-10-23 17:31] LABS: FIO2 35; PCO2 Arterial 54 mmHg (35-45)
[2016-10-23] MEDS ORDERED: Albuterol HFA INHALER* 8 gm MDI INH SCH (18:00)
[2016-10-23] MEDS ORDERED: clonazePAM TAB(*) 0.5 MG PO PRN (18:37)
[2016-10-23] MEDS ORDERED: Baclofen TAB* 10 MG PO PRN ×2 (18:37→18:45)
[2016-10-23] MEDS ORDERED: oxyCODONE/Acetamin 5/325 MG* TAB PO PRN (18:37)
[2016-10-23] MEDS ORDERED: oxyCODONE TAB* 5 MG TAB PO PRN (18:41)
[2016-10-23] MEDS: Albuterol 2.5 MG/3 ML NEB.SOL* (0.083%) INH PRN ×2 (19:17→23:17)
[2016-10-23] MEDS: Budesonide NEB* 0.5 MG/2 ML NEB.SOLN INH SCH (19:19)
[2016-10-23] MEDS ORDERED: Gabapentin CAP(*) 300 MG PO SCH (21:00)
[2016-10-23] MEDS ORDERED: Metoprolol Tartrate TAB* 25 MG PO SCH ×2 (21:00)
[2016-10-23] MEDS: Gabapentin CAP(*) 300 MG PO SCH (22:54)
[2016-10-23] MEDS: Heparin VIAL(*) 5000 UNITS/ML VIAL (FIVE THOUSAND) SUBCUT SCH (22:54)
[2016-10-23] MEDS: Ropinirole TAB* 0.5 MG TAB PO SCH (22:55)
[2016-10-23] MEDS: oxyCODONE/Acetamin 5/325 MG* TAB PO PRN (23:09)
--- NOTE | 2016-10-23 23:26 | HP ---
HOSPITAL MEDICINE HISTORY AND PHYSICAL: DATE OF ADMISSION: 10/23/16 PRIMARY CARE PHYSICIAN: Dr. Hillman. ATTENDING PHYSICIAN: Dr. Gerald Mcconnell* (dictation provided by Dayanara Garces NP) . CHIEF COMPLAINT: Shortness of breath. HISTORY OF PRESENT ILLNESS: Ms. Doherty is a 66-year-old female who was recently discharged from our hospital on 10/19/16 after being treated for severe airway edema with a tracheostomy placement in the setting of history of head and neck squamous cell carcinoma. After the tracheostomy placement, she did develop acute respiratory failure and remained on the ventilator. She was able to be weaned from the ventilator and ultimately discharged to home on 10/23. Ms. Doherty reportedly had an episode today where she became suddenly very short of breath. She had been being suctioned by family, but they were unable to correct the problem. On arrival of the EMS, the patient's O2 saturation was in the low 80s. She was encouraged to cough and was able to bring up a large amount of sputum. She was placed on higher flow oxygen than she is at home and had a good return of saturations to greater than 90% with those interventions. The patient is a bit of a poor historian, but she states that since being home, she has been wearing her oxygen when not wearing her passy reinaldo valve. In the emergency room, Ms. Doherty had an O2 saturation of 96%. She has been seen by Respiratory Therapy who thoroughly cleaned her tracheostomy and ensured that it is functioning properly. She has labs which show chronic anemia, which is unchanged, but she has a new acute renal failure with a BUN of 40 and a creatinine of 2.36. She also has an elevated troponin to 0.08 with EKG changes showing T-wave inversions in the V leads primarily. She also has an elevated C- reactive protein of 115.27. On first examining Ms. Doherty, she was quite sedated and difficult to arouse. She reported to me once finally waking up that this has been a problem for her since the tracheostomy has been placed. I did obtain an ABG, which showed that she had a normal pH and a PCO2 of only 54. PAST MEDICAL HISTORY: 1. Tracheostomy placement, 10/13/16, for laryngeal edema, impending airway obstruction related to history of head and neck squamous cell carcinoma, status post radiation and chemotherapy. 2. COPD. 3. Colostomy placement. 4. Hypertension. 5. Anxiety. 6. Tobacco abuse. MEDICATIONS: 1. Clonazepam 0.5 mg p.o. q.6 hours p.r.n. anxiety. 2. Requip 0.5 mg p.o. q.h.s. 3. Protonix 40 mg p.o. daily. 4. Lovastatin 20 mg p.o. daily. 5. Lisinopril 5 mg p.o. daily. 6. Gabapentin 300 mg p.o. b.i.d. 7. Lasix 40 mg p.o. daily. 8. Prozac 40 mg p.o. daily. 9. Baclofen 10 mg p.o. q.6 hours p.r.n. 10. Aspirin 81 mg p.o. daily. 11. Albuterol via nebulizer 4 times a day p.r.n. 12. Percocet 10/325 one tab p.o. q.4 hours p.r.n. pain. 13. Theophylline 300 mg p.o. daily. 14. Metoprolol tartrate 25 mg p.o. q.12 hours. FAMILY HISTORY: Reviewed and noncontributory. SOCIAL HISTORY: The patient is a former smoker, but states she quit recently. She was known to be a smoker at the end of September when she was seen at ENT by Dr. Barr. There is no report of alcohol or drug use. She lives with her sister right now, who is the healthcare proxy. REVIEW OF SYSTEMS: A 14-point review of systems was completed with Ms. Doherty and all those not mentioned above were negative. PHYSICAL EXAMINATION GENERAL: Ms. Doherty is initially very sedated when I walk in the room. However , after an ABG attempts were made, the patient does finally awaken and she is oriented x3. VITAL SIGNS: Temperature 98.8, pulse rate 60, respiratory rate 18, O2 saturation 99% at 10 L of oxygen with 35% FiO2, blood pressure is 115/86. LUNGS: Clear to auscultation bilaterally with no accessory muscle use and good aeration. HEART: S1, S2. No murmur, rub, or gallop and regular. ABDOMEN: Soft, nontender with bowel sounds positive x4. EXTREMITIES: No cyanosis or edema. NEUROLOGIC: She moves all extremities equally. There is no facial asymmetry or focal weakness. Extraocular movements are intact. SKIN: Intact. LABORATORY DATA AND DIAGNOSTIC STUDIES: WBC 10.3, hemoglobin 8.0, hematocrit 26, platelet count 378. INR 1.16, pH 7.38, pCO2 54, PO2 67. Sodium 138, potassium 5.3, chloride 101, serum bicarbonate 29, BUN 40, creatinine 2.36, glucose 102, lactic acid 0.8, troponin 0.08. CRP 115.27. Urine is pending. Chest x-ray actually shows improvement in vascular congestion and no other abnormality. The EKG shows a sinus rhythm with T-wave inversions in V1 through V6. ASSESSMENT: Ms. Doherty is a 66-year-old female with past medical history of head and neck squamous cell carcinoma who developed laryngeal edema with impending airway obstruction, which required tracheostomy with Dr. Barr on 10/13/16. Immediately thereafter, she had acute respiratory failure and remained intubated for sometime. She was ultimately weaned from the ventilator and discharged to home on 10/19/16. She returns today with acute hypoxia likely secondary to mucus plugging based on the description from emergency medical services. In addition to this, she has been found to have acute renal failure and elevated troponin with EKG changes. Our plans are for inpatient admission as I expect the length of stay to be greater than 2 days for the followin. Hypoxia: This has resolved with good suctioning and cleaning of the airway. I suspect this again was secondary to mucus plugging. She has no evidence of pneumonia on chest x-ray. Appreciate the support from Respiratory Therapy who will be monitoring her closely overnight and be providing increased education to both her and her sister prior to any planned discharge. I have reviewed the case with Dr. Corado, who is corrections identification technician for ENT tonight. He plans to see the patient in the a.m., but is available for more immediate consultation should the patient decompensate. I will note the patient was quite sedated on arrival and I questioned whether or not this has been related to acute CO2 retention. However, her CO2 is essentially normal on the blood gas and her pH is normal. I am not sure what is driving her excessive sleepiness unless it is excessive use of her pain medication and antianxiety medication regimen. For now, plan to continue that p.r.n. with of course hold parameters for any sedation tonight. 2. Acute renal failure: I believe the patient is likely dehydrated in the setting of use of lisinopril and Lasix and poor oral intake secondary to new food texture with new tracheostomy. Plan to have her reevaluated by Speech Therapy to assess liquid thickness and food texture requirements. The patient will have intravenous fluids overnight and we will recheck all her labs tomorrow. 3. Hypertension: Plan to hold Lasix and lisinopril based on acute renal failure, but she will continue on metoprolol. The patient was hypotensive on arrival, but her blood pressure has responded well to intravenous fluids. She is only on low- dose metoprolol which will continue to avoid any rebound tachycardia as long as her blood pressure remains stable. 4. Chronic pain: Continue home medication regimen as long as the patient remains awake, alert, and oriented. 5. Elevated troponin: The patient's troponin was elevated at 0.08 and her EKG shows T-wave inversions compared to previous. Plan to monitor on the telemetry unit and cycle troponins. The patient does not have any chest pain. I believe the elevated troponin and EKG changes are secondary to demand ischemia in the setting of severe hypoxia and distress. 6. DVT prophylaxis: Heparin subcu. 7. Code status, full code. 8. Disposition to the telemetry floor. TIME SPENT: Approximately 75 minutes were spent on the admission of this patient, more than half time spent with the patient at the bedside reviewing the events leading up to this hospitalization, performing the physical examination, and reviewing the plan of care. DAYANARA GARCES NP CC: Dr. Hillman* [id number]/[facility] #: [id number] [place]
[2016-10-24] MEDS: Albuterol 2.5 MG/3 ML NEB.SOL* (0.083%) INH PRN ×2 (03:55→07:49)
[2016-10-24 05:32] LABS: Hematocrit 23 % (35-47); Mean Corpuscular HGB Conc 31 g/dl (31-36); Mean Corpuscular Hemoglobin 24 pg (27-31); Mean Corpuscular Volume 77 fL (80-97); Mean Platelet Volume 8 um3 (7.4-10.4); Red Blood Count 2.95 10^6/ul (4.0-5.4); Red Cell Distribution Width 18 % (10.5-15)
[2016-10-24] MEDS: Heparin VIAL(*) 5000 UNITS/ML VIAL (FIVE THOUSAND) SUBCUT SCH ×3 (05:45→21:43)
[2016-10-24 05:52] LABS: BUN/Creatinine Ratio 18.4 (8-20); Calcium 8.4 mg/dL (8.6-10.3); EGFR Non-African American 20.2 (>60); Potassium 4.1 mmol/L (3.5-5.0)
[2016-10-24] MEDS: Budesonide NEB* 0.5 MG/2 ML NEB.SOLN INH SCH ×2 (07:56→19:55)
[2016-10-24] MEDS ORDERED: LR @ 40 MLS/HR IV ONE (08:00)
[2016-10-24 08:23] LABS: FIO2 35
[2016-10-24 08:27] LABS: PCO2 Arterial 55 mmHg (35-45)
--- NOTE | 2016-10-24 08:28 | RAD ---
HISTORY: Altered mental status COMPARISONS: October 23, 2016 VIEWS:1: Single frontal portable view of the chest at 8:05 AM FINDINGS: LINES AND TUBES: A tracheostomy tube is noted CARDIOMEDIASTINAL SILHOUETTE: The cardiac silhouette is enlarged. The cardiomediastinal silhouette is otherwise normal for portable technique. PLEURA: There is a small left pleural effusion LUNG PARENCHYMA: There is a diffuse reticular pattern with indistinct pulmonary vessels. ABDOMEN: The upper abdomen is clear. There is no subphrenic gas. BONES AND SOFT TISSUES: No bone or soft tissue abnormalities are noted. IMPRESSION: 1. LINES AND TUBES ABOVE. 2. CARDIOMEGALY. 3. PULMONARY EDEMA. 4. SMALL LEFT PLEURAL EFFUSION
[2016-10-24] MEDS ORDERED: Spiriva Inhaler DEVICE* 1 EACH DEVICE INH ONE (09:00)
[2016-10-24] MEDS ORDERED: Tiotropium CAP.INH* CAP.INH/18 MCG INH SCH (09:00)
[2016-10-24] MEDS: FLUoxetine CAP* 20 MG PO SCH (09:27)
[2016-10-24] MEDS: Aspirin EC Low Dose* 81 MG TAB.EC PO SCH (09:34)
[2016-10-24] MEDS: Theophylline TAB* 300 MG PO SCH (09:34)
[2016-10-24] MEDS: Gabapentin CAP(*) 300 MG PO SCH ×2 (09:34→21:43)
[2016-10-24] MEDS ORDERED: methylPREDNISolone SOD SUCC* 125 MG 2 ML VIAL IV ONE (09:34)
[2016-10-24] MEDS ORDERED: Vancomycin per Pharmacy* NOTE FOLLOW UP PRN (09:45)
--- NOTE | 2016-10-24 09:51 | PN ---
Subjective Date of Service: 10/24/16 Interval History: called to the patients room by the primary nurse for lethargy, low blood pressure. Patient sitting on the side of the bed upon entering the room A+O x3. She was constantly trying to spit of thick clear - white sputum. She reports she has had increased sputum production over the past several days now reporting thick sputum "difficult to get rid of". Reports intermittent cough. Denies SOB. No fevers or chills. Denies CP. Reports mild dizziness worse with position changes. Spoke with the daughter over the phone who stated she has been caring for her since she has been home living with her. She reports she can only take 10-15 steps and over all has been very difficult to care for. She has been requiring frequent suctioning, noting an increase in sputum production the last several days. Objective Active Medications: Albuterol (Ventolin 2.5 Mg/3 Ml Neb.Zoe*) 2.5 mg INH Q4H PRN PRN Reason: WHEEZING Last Admin: 10/24/16 07:49 Dose: 2.5 mg Aspirin (Aspirin Ec Low Dose*) 81 mg PO QAM [facility] Last Admin: 10/24/16 09:34 Dose: 81 mg Baclofen (Lioresal Tab*) 10 mg PO Q6HR PRN PRN Reason: SPASMS - BACK Last Admin: 10/23/16 23:09 Dose: 10 mg Budesonide (Pulmicort Neb*) 0.5 mg INH RT.BID [facility] Last Admin: 10/24/16 07:56 Dose: 0.5 mg Clonazepam (Klonopin Tab(*)) 0.5 mg PO Q6HR PRN PRN Reason: ANXIETY Fluoxetine HCl (Prozac Cap*) 40 mg PO QAM [facility] Last Admin: 10/24/16 09:27 Dose: 40 mg Gabapentin (Neurontin Cap(*)) 300 mg PO BID [facility] Last Admin: 10/24/16 09:34 Dose: 300 mg Heparin Sodium (Porcine) (Heparin Vial(*)) 5,000 units SUBCUT Q8HR [facility] Last Admin: 10/24/16 05:45 Dose: 5,000 units Lactated Ringer's (Lactated Ringers 1000 Ml Bag*) 1,000 mls @ 75 mls/hr IV PER RATE [facility] Azithromycin 500 mg/ Sodium (Chloride) 250 mls @ 250 mls/hr IVPB Q24H [facility] Cefepime HCl 1 gm/ Sodium (Chloride) 50 mls @ 100 mls/hr IVPB Q12H [facility] Vancomycin HCl 1,250 mg/ (Sodium Chloride) 250 mls @ 166.667 mls/hr IVPB ONCE ONE PRN Reason: Protocol Stop: 10/24/16 13:29 Methylprednisolone Sodium Succinate (Solu-Medrol*) 60 mg IV Q8H [facility] Morphine Sulfate (Morphine Inj (Syringe)*) 4 mg IV Q4H PRN PRN Reason: PAIN Last Admin: 10/23/16 17:03 Dose: 4 mg Oxycodone/Acetaminophen (Percocet 5/325 Tab*) 2 tab PO Q4H PRN PRN Reason: PAIN Last Admin: 10/23/16 23:09 Dose: 2 tab Pharmacy Consult (Vancomycin Per Pharmacy*) 1 note FOLLOW UP . PRN PRN Reason: PER PROTOCOL Ropinirole HCl (Requip Tab*) 0.5 mg PO BEDTIME [facility] Last Admin: 10/23/16 22:55 Dose: 0.5 mg Theophylline (Aayush Dur*) 300 mg PO DAILY [facility] Last Admin: 10/24/16 09:34 Dose: 300 mg Vital Signs 10/23/16 10/23/16 10/23/16 18:00 18:31 19:24 Temperature Pulse Rate 59 56 60 Respiratory Rate Blood Pressure (mmHg) O2 Sat by Pulse 99 94 98 Oximetry 10/23/16 10/23/16 10/23/16 19:33 19:34 22:54 Temperature 97.4 F 97.4 F Pulse Rate 58 58 Respiratory 20 20 16 Rate Blood Pressure 99/47 99/47 (mmHg) O2 Sat by Pulse 97 97 Oximetry 10/23/16 10/23/16 10/23/16 23:09 23:10 23:23 Temperature 96.5 F Pulse Rate 58 59 Respiratory 16 18 Rate Blood Pressure 105/58 (mmHg) O2 Sat by Pulse 93 100 Oximetry 10/24/16 10/24/16 10/24/16 03:59 04:25 07:36 Temperature 98.1 F Pulse Rate 50 43 Respiratory 16 16 Rate Blood Pressure 98/45 (mmHg) O2 Sat by Pulse 99 99 Oximetry 10/24/16 10/24/16 07:50 07:56 Temperature 97.2 F Pulse Rate 43 46 Respiratory 20 16 Rate Blood Pressure 76/38 85/51 (mmHg) O2 Sat by Pulse 95 100 Oximetry Oxygen Devices in Use Now: - - mask - trach Appearance: chornically ill appearing female sitting up on the side of the bed A +O x3 in NAD. Eyes: No Scleral Icterus, PERRLA Ears/Nose/Mouth/Throat: NL Teeth, Lips, Gums, Mucous Membranes Moist Neck: - - trach intact - no noted erythema or drainage around site Respiratory: Symmetrical Chest Expansion and Respiratory Effort, - - crackles to left base otheriwse clear with good aeration throughout Abdominal: NL Sounds; No Tenderness; No Distention, - - colostomy intact - draining brown liquid stool. Extremities: No Edema, No Clubbing, Cyanosis Skin: No Rash or Ulcers, No Nodules or Sclerosis Neurological: Alert and Oriented x 3 Lines/Tubes/Other Access: Clean, Dry and Intact Peripheral IV Nutrition: Taking PO's Result Diagrams: 10/24/16 05:11 10/24/16 05:11 Assess/Plan/Problems-Billing Assessment: Ms. 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 Also holds a PMH of being treated for recent bronchitis/pneumonia multiple times this winter, COPD, long-term tobacco abuse recently quitting at time trach was placed, and HTN. - Patient Problems (1) Hypoxia Comment: - initially it was thought the patient had a large mucus and her hypoxia resolved. ENT, Dr. Corado evlauated the patient today and reports from his standpoint everything looks good - no noted edema or mucus. Recommended swallow eval. - Repeat chest xray this am showing possible left effusion, pulmonary edema - o2 sats wnls, noted low BPs since admission - question if this is pneumonia ( possible HCAP), CHF or COPD exacerbation - or a combination. It is possible she is also aspirating on her secretions/food. It is noted she has mild hypercapnea on ABG. no leukocytsosi or lactic acidosis. - Plan to start broad spec abx, solumedrol and transfer to ICCU for increased level of care that can be provided on the medical floor- spoke wimiguel Severino who will take the patient onto his service. PICC ordered (2) Elevated troponin I level Comment: - suspect demand ischemia - no noted ischemic EKG changes. - obtain echo (3) ARF (acute renal failure) Comment: - suspect a combination of lisinopril, lasix and hypovolemia. Hold BP meds. - Send urine sodium/creatinine - Pt transferred to ICCU for careful fluid resusitation in the setting of pulmonary edema - renally adjust medications - strict I+O's (4) Bradycardia Comment: - noted bradycardia - hold metoprolol (5) Anemia Comment: - microcytic anemia - plan to transfuse PRBCs - stool for occult blood (6) Chronic pain Comment: - home dose oxycodone (7) Anxiety Comment: Continue prozac and prn clonazepam. (8) HTN (hypertension) Comment: hold home meds due to hypotension (9) DVT prophylaxis Comment: SQ heparin (10) Full code status Status and Disposition: inpatient. transfer to ICU for high level of care. Pt may benefit from subacute rehab prior to returning to daughter home. Per daughter she has been very difficult to manage at home.
[2016-10-24] MEDS: Azithromycin IV(*) 500 MG in NS 0.9% 250 ML* 250 ML IVPB SCH (10:57)
--- NOTE | 2016-10-24 11:07 | PN ---
Progress Note - Progress Note Note: Critical Care Medicine 66 yo female admitted ytdy re dyspnea and mucus plugging as well as acute kidney injury. Patient moved down to ICU today re need for frequent suctioning and for closer observation. Patient has a long history of heavy tobacco use with COPD and also has a history of Obstructive Sleep Apnea. However, more recently has a history of Squamous Cell Carcinoma involving the upper airway for which she had received Chemotherapy and XRT (in [place] in 2016). She has had multiple bouts of bronchitis and pneumonia over the last several months receiving multiple courses of antibiotics. More recently she underwent an evaluation of her upper airway revealing extensive laryngeal edema prompting placement of a tracheostomy. She was discharged from the hospital about 5 days ago. She uses oxygen at home and uses a Passey-reinaldo Valve for speech purposes. Patient received IV fluids in ER for treatment of hypotension and acute kidney injury. Chronic hypotensive meds have been held. She was started on IV antibiotics re concern for recurrance pneumonia and has been ordered for transfusion of PRBC re anemia. Also plans initiated include an evaluation of her swallow function. ENT has been following patient since admission re recent trache. On arrival to ICU she is awake and alert and interactive and she is nontoxic in appearance. Allergy PCNs, seasonal allergies PMH Diverticulitis, Colectomy with Colostomy, GERD, Hypercholesterolemia, Depression and Anxiety, HTN, had PEG in past which was removed Soc Hx retired, moved to area from [place] SBP 117 HR 51 reg RR 11 SpO2 92-93 (TC) Skin no diaphoresis, no cyanosis Sclerae anicteric Oral mucosa pink Trache in place...site OK Lungs with bilateral BS, no wheezes, no rhonchi Cor RRR no rub, no murmur Abd soft, nontender, LLQ with stoma and overlying collection bag Ext no edema WBC 7.0 Hgb 7.0 Plt 315 7.35/55/92 Lact 0.8 K 4.1 BUN/Creat 44/2.39 Gluc 101 Troponin 0.08, 0.06, 0.06 ECG Sinus bradycardia CXR bronchograms in retrocardiac space along Lt cardiac silhouette (reviewing old CXR this appears to be a chronic finding visible to varying degress depending on Xray penetration IMP: Suspect recurrence of tracheo-bronchitis with increasing burden of respiratory secretions Hx recurrent bouts of bronchitis and pneumonia Recent tracheostomy re laryngeal edema Hx Squamous Cell Carcinoma of upper airway s/p XRT and Chemo Hx COPD...has mild hypercapnea Hx Sleep Apnea Hypotension with acute renal failure...suspect a combination of hypovolemia and hypotensive meds Hx HTN Anemia....very marginally acceptable Hgb - to be transfused Hx Diverticultis with Colectomy and Colostomy PLAN/REC: Continue on T collar Use Passey-Brockton Valve as needed to facilitate communication Suctioning PRN Oximetry Keep HOB raised Tracheal aspirate culture Antibiotics as ordered Hold hypotensive meds IV fluids as needed DVT prophyl PICC or midline for improved IV access Dose adjust all meds for degree of renal failure Check Urine lytes and Osm Reduce Solumedrol to 40 mg Q 12 hrs Check Theoph level Proceed with planned swallow evaluation ENT follow-up as appropriate Discussed earlier with JOO....will assume care for now in ICU Discussed with Nurse
[2016-10-24] MEDS: Cefepime(*) 1 GM in NS 0.9% 50 ML* 50 ML IVPB SCH ×2 (11:42→23:29)
[2016-10-24] MEDS ORDERED: Vancomycin(*) 1,250 MG in NS 0.9% 250 ML* 250 ML IVPB ONE (12:00)
[2016-10-24] MEDS: Morphine INJ* 4 MG/ML 1 ML SYRINGE IV PRN (12:14)
[2016-10-24] MEDS: methylPREDNISolone SOD SUCC* 40 MG/ML VIAL IV SCH ×2 (12:15→23:29)
[2016-10-24] MEDS: Baclofen TAB* 10 MG PO SCH ×2 (13:48→21:43)
[2016-10-24] MEDS ORDERED: clonazePAM TAB(*) 0.5 MG PO SCH (14:00)
--- NOTE | 2016-10-24 14:46 | ECHO ---
Patient: SHONA OAKLEY [facility] Rec#: [id number] : 1950 Date: 10/24/2016 Age: 66y Height: 162.56 cm / 64.0 in Weight: 89.36 kg / 196.9 lbs Sex: F BSA: 1.94 Room#: ICU-2 Admit Date#: 10/23/2016 Type: Inpatient Referring: Misty Reynolds Reading: Luzma Mitchell MD Roll On Man: Lee Ann Quezada RDCS CC: Latesha Hillman MD Transthoracic Echocardiogram Indication: Elevated Trops BP: 114/34 HR: 64 Rhythm: NSR Findings History: Trach secondary to head and neck squamous cell cancer,COPD,HTN,prior tobacco use,acute kidney injury,GERD,s/p colostomy. Study done with HOB at 90 degrees. Technical Comments: The study is technically limited due to poor apical windows. The study is technically limited due to the patient's history of COPD. Completed at 1425. The study was technically limited due to the patient's inability to lay in the left lateral decubitus position. Left Ventricle: Moderate concentric left ventricular hypertrophy is observed. Global left ventricular wall motion and contractility are within normal limits. The estimated ejection fraction is 55-60%. Abnormal left ventricular diastolic function is observed. Left Atrium: The left atrial chamber size is normal. Right Ventricle: The right ventricular cavity size is normal. The right ventricular global systolic function is normal. Right Atrium: The right atrial cavity size is normal. Aortic Valve: The aortic valve is trileaflet. There is no evidence of aortic regurgitation. There is no evidence of aortic stenosis. Mitral Valve: The mitral valve leaflets are mildly thickened. There is a trace of mitral regurgitation. There is no evidence of mitral stenosis. Tricuspid Valve: The tricuspid valve leaflets are normal. There is mild tricuspid regurgitation. The tricuspid regurgitant jet is directed toward the septum. There is evidence of moderate to severe pulmonary hypertension. There is no tricuspid stenosis. Pulmonic Valve: The pulmonic valve appears normal. There is no evidence of pulmonic regurgitation. There is no pulmonic stenosis. Pericardium: No pericardial fat pad is visualized. Aorta: There is no dilatation of the ascending aorta. The aortic arch is not well visualized. There is no dilation of the aortic root. Pulmonary Artery: The main pulmonary artery appears normal. Venous: The venous system is not well visualized. Conclusions The study is technically limited. Moderate concentric left ventricular hypertrophy is observed. Global left ventricular wall motion and contractility are within normal limits. The estimated ejection fraction is 55-60%. Abnormal left ventricular diastolic function is observed. The right ventricular global systolic function is normal. All valves appear grossly normal with good function. Mild tricuspid insufficiency. There is evidence of moderate to severe pulmonary hypertension: 57 mmHg. No prior echo to compare. Measurements Name Value Normal Range RVIDd (AP) 2D 2.5 cm (0.9 - 2.6) RVDdMajor (2D) 3.7 cm (2.2 - 4.4) RAd ISD 4CH 5.8 cm (3.4 - 4.9) RA (A4C)W 4 cm (2.9 - 4.6) IVSd (2D) 1.4 cm (0.6 - 1) LVPWd (2D) 1.5 cm (0.6 - 1) LVIDd (2D) 4.3 cm (3.6 - 5.4) LVIDs (2D) 3 cm - LV FS (2D) 33 % (25 - 45) Aortic Annulus 2 cm (1.4 - 2.6) Ao root diameter (2D) 3.2 cm (2.1 - 3.5) Ascending Ao 3.2 cm (2.1 - 3.4) LA dimension (AP) 2D 3.5 cm (2.3 - 3.8) LAd ISD 4CH 5.9 cm (2.9 - 5.3) LA ISD 4CH W 3.9 cm (2.5 - 4.5) Name Value Normal Range MV E-wave Vmax 1 m/sec - MV deceleration time 235 msec - MV A-wave Vmax 0.8 m/sec - MV E:A ratio 1.21 ratio - LV septal e' Vmax 0.08 m/sec - LV lateral e' Vmax 0.06 m/sec - LV E:e' septal ratio 12.5 ratio - LV E:e' lateral ratio 16.67 ratio - Name Value Normal Range AV Vmax 1.8 m/sec - AV VTI 40.8 cm - AV peak gradient 12.3 mmHg - AV mean gradient 6.93 mmHg - LVOT Vmax 0.9 m/sec - LVOT VTI 22.5 cm - LVOT peak gradient 3.09 mmHg - LVOT mean gradient 1.42 mmHg - Name Value Normal Range TR Vmax 3.5 m/sec - TR peak gradient 49 mmHg - RAP 8 mmHg - RVSP 57 mmHg - Name Value Normal Range PV Vmax 0.9 m/sec - PV peak gradient 3.03 mmHg -
[2016-10-24 16:15] LABS: Hematocrit 27 % (35-47); Hemoglobin 8.5 g/dl (12.0-16.0); Mean Corpuscular HGB Conc 31 g/dl (31-36); Mean Corpuscular Hemoglobin 25 pg (27-31); Mean Corpuscular Volume 79 fL (80-97); Mean Platelet Volume 9 um3 (7.4-10.4); Red Blood Count 3.46 10^6/ul (4.0-5.4); Red Cell Distribution Width 19 % (10.5-15); White Blood Count 8.1 10^3/ul (3.5-10.8)
[2016-10-24 16:49] LABS: BUN/Creatinine Ratio 23.4 (8-20); Calcium 8.5 mg/dL (8.6-10.3); EGFR African American 39.4 (>60); EGFR Non-African American 30.6 (>60); Potassium 5.2 mmol/L (3.5-5.0)
[2016-10-24] MEDS ORDERED: NS 0.9% 1000 ML* 1,000 ML IV SCH (17:00)
[2016-10-24] MEDS ORDERED: methylPREDNISolone SOD SUCC* 125 MG 2 ML VIAL IV SCH (18:00)
[2016-10-24] MEDS: Ropinirole TAB* 0.5 MG TAB PO SCH (21:42)
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
[2016-10-24] MEDS: clonazePAM TAB(*) 0.5 MG PO PRN (23:38)
[2016-10-24] MEDS: oxyCODONE/Acetamin 5/325 MG* TAB PO PRN (23:43)
[2016-10-25] MEDS: Vancomycin(*) 1,000 MG in NS 0.9% 250 ML* 250 ML IVPB SCH ×3 (01:06→14:02)
[2016-10-25] MEDS: Morphine INJ* 4 MG/ML 1 ML SYRINGE IV PRN ×2 (04:38→20:43)
[2016-10-25] MEDS: Heparin VIAL(*) 5000 UNITS/ML VIAL (FIVE THOUSAND) SUBCUT SCH ×3 (05:31→22:21)
[2016-10-25] MEDS: Baclofen TAB* 10 MG PO SCH ×3 (05:31→20:43)
[2016-10-25 06:10] LABS: Hematocrit 28 % (35-47); Hemoglobin 8.7 g/dl (12.0-16.0); Mean Corpuscular HGB Conc 31 g/dl (31-36); Mean Corpuscular Hemoglobin 24 pg (27-31); Mean Corpuscular Volume 79 fL (80-97); Mean Platelet Volume 9 um3 (7.4-10.4); Red Blood Count 3.56 10^6/ul (4.0-5.4); Red Cell Distribution Width 19 % (10.5-15); White Blood Count 5.6 10^3/ul (3.5-10.8)
[2016-10-25 06:30] LABS: Prealbumin 8 mg/dL (18-38)
[2016-10-25 06:31] LABS: Anion Gap 6 mmol/L (2-11); BUN/Creatinine Ratio 27.8 (8-20); Blood Urea Nitrogen 30 mg/dL (6-24); CO2 Carbon Dioxide 28 mmol/L (22-32); Calcium 8.6 mg/dL (8.6-10.3); Chloride 105 mmol/L (101-111); EGFR African American 65.1 (>60); EGFR Non-African American 50.6 (>60); Glucose 145 mg/dL (70-100); Potassium 4.5 mmol/L (3.5-5.0); Sodium 139 mmol/L (133-145)
--- NOTE | 2016-10-25 08:31 | PN ---
Progress Note - Progress Note Note: [facility] Progress Note Very alert, talkative...uses finger over trache this AM Complains of pains in jaw, neck, mid back, buttocks Says she needs teeth extracted and a vision exam Regular phlegm from trache SBP 161 HR 57 reg RR 22 SpO2 94-97 (TC) Skin no diaphoresis, no cyanosis Sclerae anicteric Oral mucosa pink and moist, poor dentition Trache in place...site OK Lungs with bilateral BS, no wheezes, scattered rhonchi Cor RRR no rub, no murmur Abd soft, nontender, LLQ with stoma and overlying collection bag Ext no edema LUE PIV RUE midline IV WBC 5.6 Hgb 8.7 Plt 320 K 4.5 BUN/Creat 31/1.08 PreAlb 8 ECHO with intact LV function, mod pulm-HTN Sput Cx 3(+)WBC, polymicrobial morphologies IMP: Suspect recurrence of tracheo-bronchitis with increasing burden of respiratory secretions...presently phlegm appears more normal in character Hx recurrent bouts of bronchitis and pneumonia Recent tracheostomy re laryngeal edema 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 transfused...adequate Hgb Hx Diverticultis with Colectomy and Colostomy Chronic pain issues and very absorbed with her somatic symptoms PLAN/REC: Continue on T collar Use Passey-[place] Valve as needed to facilitate communication...in fact for short/brief communications probably better she uses finger occlusion tecnique as ytdy she had trouble removing PM valve periodically and would favor her not falling asleep with PM valve in place Cough to clear phlegm with assistance in suctioning PRN Oximetry Keep HOB raised Await culture data De-escalate Abx as culture data returns Reduce Solumedrol to once daily Decrease IV fluids DVT prophyl PICC or midline for improved IV access Check Theoph level ENT follow-up as appropriate Tried to tell her that pain can not be fully resolved...that pain should be managed to take the edge off and reach a "livable" level Discussed with ICU Multidisciplinary team, bedside Nurse, and Hospitalist JOO...patient felt to need more suctioning than usual for floors. Have no objection to patient remaining in ICU however, at this point no particular CCM specific issues active. Will transfer back to care of Hospitalist team. Have no objection with empiric de-escalation of Abx....principle microbial morphology is GPC raising concern over Staph in addition to Strep. Perhaps can just treat with Vanco for now or use something like Doxycyline. Another option is Bactrim but kidneys just recovered. Also discussed with the team that she not leave the hospital to home quickly again. Believe patient would benefit from ANASTACIO as would family to adjust and learn better how to manage her at home if this remains the goal.
[2016-10-25] MEDS ORDERED: NS 0.9% 1000 ML* 1,000 ML IV SCH (08:44)
[2016-10-25] MEDS: FLUoxetine CAP* 20 MG PO SCH (08:52)
[2016-10-25] MEDS: Gabapentin CAP(*) 300 MG PO SCH ×2 (08:52→20:43)
[2016-10-25] MEDS: Theophylline TAB* 300 MG PO SCH (08:52)
[2016-10-25] MEDS: Aspirin EC Low Dose* 81 MG TAB.EC PO SCH (08:52)
[2016-10-25] MEDS: amLODIPine TAB* 5 MG PO SCH (09:09)
[2016-10-25] MEDS: methylPREDNISolone SOD SUCC* 40 MG/ML VIAL IV SCH (09:09)
[2016-10-25] MEDS: Budesonide NEB* 0.5 MG/2 ML NEB.SOLN INH SCH ×2 (09:45→21:27)
[2016-10-25] MEDS: Azithromycin IV(*) 500 MG in NS 0.9% 250 ML* 250 ML IVPB SCH (09:52)
--- NOTE | 2016-10-25 10:27 | PN ---
Subjective Date of Service: 10/25/16 Interval History: Patient reports she feels better today stating her secretions are slightly thinner but she continues to have "lots of junky mucus". Denies SOB. Denies fever or chills. Denies abdominal pain, no N/V. reports colostomy output is normal. Admits to not thickening her liquids at home. Discussed possible subacute rehab to build strength and have increased nursing care. Objective Active Medications: Albuterol (Ventolin 2.5 Mg/3 Ml Neb.Zoe*) 2.5 mg INH Q4H PRN PRN Reason: WHEEZING Last Admin: 10/24/16 07:49 Dose: 2.5 mg Amlodipine Besylate (Norvasc Tab*) 5 mg PO DAILY [facility] Last Admin: 10/25/16 09:09 Dose: 5 mg Aspirin (Aspirin Ec Low Dose*) 81 mg PO QAM [facility] Last Admin: 10/25/16 08:52 Dose: 81 mg Baclofen (Lioresal Tab*) 10 mg PO Q8HR [facility] Last Admin: 10/25/16 05:31 Dose: 10 mg Budesonide (Pulmicort Neb*) 0.5 mg INH RT.BID [facility] Last Admin: 10/24/16 19:55 Dose: 0.5 mg Clonazepam (Klonopin Tab(*)) 0.5 mg PO Q8HR PRN PRN Reason: AGITATION/ANXIETY/INSOMNIA Last Admin: 10/24/16 23:38 Dose: 0.5 mg Fluoxetine HCl (Prozac Cap*) 40 mg PO QAM [facility] Last Admin: 10/25/16 08:52 Dose: 40 mg Gabapentin (Neurontin Cap(*)) 300 mg PO BID [facility] Last Admin: 10/25/16 08:52 Dose: 300 mg Heparin Sodium (Porcine) (Heparin Vial(*)) 5,000 units SUBCUT Q8HR [facility] Last Admin: 10/25/16 05:31 Dose: 5,000 units Azithromycin 500 mg/ Sodium (Chloride) 250 mls @ 250 mls/hr IVPB Q24H [facility] Last Admin: 10/25/16 09:52 Dose: 250 mls/hr Sodium Chloride (Ns 0.9% 1000 Ml*) 1,000 mls @ 40 mls/hr IV .PER RATE [facility] Methylprednisolone Sodium Succinate (Solu-Medrol*) 40 mg IV DAILY [facility] Last Admin: 10/25/16 09:09 Dose: 40 mg Morphine Sulfate (Morphine Inj (Syringe)*) 4 mg IV Q4H PRN PRN Reason: PAIN Last Admin: 10/25/16 04:38 Dose: 4 mg Oxycodone/Acetaminophen (Percocet 5/325 Tab*) 2 tab PO Q4H PRN PRN Reason: PAIN Last Admin: 10/24/16 23:43 Dose: 2 tab Ropinirole HCl (Requip Tab*) 0.5 mg PO BEDTIME [facility] Last Admin: 10/24/16 21:42 Dose: 0.5 mg Theophylline (Aayush Dur*) 300 mg PO DAILY [facility] Last Admin: 10/25/16 08:52 Dose: 300 mg Vital Signs 10/25/16 10/25/16 10/25/16 02:56 03:00 03:43 Temperature Pulse Rate 49 Respiratory 12 13 13 Rate Blood Pressure 157/60 (mmHg) O2 Sat by Pulse 98 Oximetry 10/25/16 10/25/16 10/25/16 04:00 04:38 05:00 Temperature 97.0 F Pulse Rate 48 65 Respiratory 13 15 20 Rate Blood Pressure 160/64 (mmHg) O2 Sat by Pulse 98 89 Oximetry 10/25/16 10/25/16 10/25/16 05:59 06:00 08:00 Temperature 97.1 F Pulse Rate 54 Respiratory 13 17 Rate Blood Pressure 139/57 (mmHg) O2 Sat by Pulse 92 Oximetry Oxygen Devices in Use Now: - - mask - trach Result Diagrams: 10/25/16 05:55 10/25/16 05:55 Additional Lab and Data: Lab Results 10/23/16 10/23/16 10/23/16 Range/Units 14:10 14:10 14:10 WBC 10.3 (3.5-10.8) 10^3/ul RBC 3.37 L (4.0-5.4) 10^6/ul Hgb 8.0 L (12.0-16.0) g/dl Hct 26 L (35-47) % MCV 77 L (80-97) fL MCH 24 L (27-31) pg MCHC 31 (31-36) g/dl RDW 18 H (10.5-15) % Plt Count 378 (150-450) 10^3/ul MPV 9 (7.4-10.4) um3 INR (Anticoag Therapy) 1.16 H (0.89-1.11) ABG pH (7.35-7.45) ABG pCO2 (35-45) mmHg ABG pO2 (80-100) mmHg ABG HCO3 (19-31) mmol/L ABG O2 Saturation ABG Base Excess (-2.0-2.0) O2 Delivery Device FiO2 Sodium 138 (133-145) mmol/L Potassium 5.3 H (3.5-5.0) mmol/L Chloride 101 (101-111) mmol/L Carbon Dioxide 29 (22-32) mmol/L Anion Gap 8 (2-11) mmol/L BUN 40 H (6-24) mg/dL Creatinine 2.36 H (0.51-0.95) mg/dL Est GFR ( Amer) 26.4 (>60) Est GFR (Non-Af Amer) 20.5 (>60) BUN/Creatinine Ratio 16.9 (8-20) Glucose 102 H (70-100) mg/dL Lactic Acid (0.5-2.0) mmol/L Calcium 8.9 (8.6-10.3) mg/dL Total Bilirubin 0.30 (0.2-1.0) mg/dL AST 27 (13-39) U/L ALT 10 (7-52) U/L Alkaline Phosphatase 70 (34-104) U/L Total Creatine Kinase 247 H (10-223) U/L CK-MB (CK-2) 2.3 (0.6-6.3) ng/mL Troponin I 0.08 H* (<0.04) ng/mL C-Reactive Protein 115.27 H (< 5.00) mg/L Total Protein 7.0 (6.4-8.9) g/dL Albumin 3.3 (3.2-5.2) g/dL Globulin 3.7 (2-4) g/dL Albumin/Globulin Ratio 0.9 L (1-3) 10/23/16 10/23/16 10/23/16 Range/Units 14:10 17:12 17:23 WBC (3.5-10.8) 10^3/ul RBC (4.0-5.4) 10^6/ul Hgb (12.0-16.0) g/dl Hct (35-47) % MCV (80-97) fL MCH (27-31) pg MCHC (31-36) g/dl RDW (10.5-15) % Plt Count (150-450) 10^3/ul MPV (7.4-10.4) um3 INR (Anticoag Therapy) (0.89-1.11) ABG pH 7.38 (7.35-7.45) ABG pCO2 54 H (35-45) mmHg ABG pO2 67 L (80-100) mmHg ABG HCO3 28.9 (19-31) mmol/L ABG O2 Saturation TNP ABG Base Excess 5.3 H (-2.0-2.0) O2 Delivery Device trach collar FiO2 35 Sodium (133-145) mmol/L Potassium (3.5-5.0) mmol/L Chloride (101-111) mmol/L Carbon Dioxide (22-32) mmol/L Anion Gap (2-11) mmol/L BUN (6-24) mg/dL Creatinine (0.51-0.95) mg/dL Est GFR ( Amer) (>60) Est GFR (Non-Af Amer) (>60) BUN/Creatinine Ratio (8-20) Glucose (70-100) mg/dL Lactic Acid 0.8 (0.5-2.0) mmol/L Calcium (8.6-10.3) mg/dL Total Bilirubin (0.2-1.0) mg/dL AST (13-39) U/L ALT (7-52) U/L Alkaline Phosphatase (34-104) U/L Total Creatine Kinase (10-223) U/L CK-MB (CK-2) (0.6-6.3) ng/mL Troponin I 0.06 H* (<0.04) ng/mL C-Reactive Protein (< 5.00) mg/L Total Protein (6.4-8.9) g/dL Albumin (3.2-5.2) g/dL Globulin (2-4) g/dL Albumin/Globulin Ratio (1-3) Microbiology and Other Data: Microbiology 10/24/16 16:22 Transfusion Reaction Culture - Preliminary Blood Bag Culture Under Incubation Transfusion Reaction Gram Stain - Final 10/24/16 12:15 Gram Stain - Final Sputum Trach 10/24/16 11:25 Nasal Screen MRSA (PCR)([facility]) - Final Nasal Mrsa Negative Assess/Plan/Problems-Billing Assessment: Ms. 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 Also holds a PMH of being treated for recent bronchitis/pneumonia multiple times this winter, COPD, long-term tobacco abuse recently quitting at time trach was placed, and HTN. - Patient Problems (1) Hypoxia Comment: - hypoxia resolved. initially the patient had a large mucus and was noted to have thick sputum production, likely secondary to dehydration, possible recurrent bronchitis. Afebrile, no leukocytosis. - ENT, Dr. Corado evaluated the patient 10/24 and reports from his standpoint everything looks good - no noted edema or mucus noted on video-scope. - Appreciate Physician Relations Manager consult - suspects recurrence tracheo-bronchitis with increasing respiratory secretions, lower suspicion for HCAP. Recommends continue Vanco until sputum grain stain results. - continue ICCU care for now, patient is requiring frequent nursing care for trach, will re-evaluate this afternoon. - Continue solumedrol, decreased to 40 mg once daily - continue azithromycin,vanco - await cx (2) Status post tracheostomy Comment: -Trach placed 10/13 for laryngeal edema secondary to squamous cell carcinoma of the upper airway s/p chemo and XRT. - suspect patient is not being noncompliant with recommended swallow eval with thickened liquids. As well, possible over-use of passey-reinaldo valve - recommending using finger occlusion for now. - continue humidified air (3) Elevated troponin I level Comment: - suspect demand ischemia - no noted ischemic EKG changes. - Echo 10/24 showing normal LVEF 55-60%, mod-severe pulm HTN (4) ARF (acute renal failure) Comment: - improving with IVFs. suspect a combination of lisinopril, lasix, poor po intake leading to hypovolemia. - strict I+O's (5) Bradycardia Comment: - noted bradycardia - hold metoprolol (6) Anemia Comment: - microcytic anemia - 1 units PRBCs transfused 10/24 - stool for occult blood- add on iron studies (7) Chronic pain Comment: - home dose oxycodone (8) Anxiety Comment: Continue prozac and prn clonazepam. (9) HTN (hypertension) Comment: hold home mariela, norvasc started (10) DVT prophylaxis Comment: SQ heparin (11) Full code status Status and Disposition: inpatient. Length of stay > 2 days. Possible subacute rehab. Spoke with daughter -in-law; plan for family to discuss what they can handle at home vs subacute.
[2016-10-25 10:53] LABS: Iron 15 ug/dL (50-212); Total Iron Binding Capacity 357 mcg/dL (250-450); Transferrin 255 mg/dL (203-362)
[2016-10-25] MEDS ORDERED: Vancomycin per Pharmacy* NOTE FOLLOW UP PRN (11:06)
[2016-10-25 11:15] LABS: Ferritin 30.7 ng/mL (11-307)
[2016-10-25 11:18] LABS: Folate 15.65 ng/mL (>3.99)
[2016-10-25 11:19] LABS: Vitamin B12 > 1450 pg/mL (180-914)
[2016-10-25] MEDS ORDERED: Vancomycin(*) 0 MG in NS 0.9% 250 ML* 250 ML IVPB SCH (12:00)
[2016-10-25] MEDS ORDERED: Vancomycin Trough Check NOTE FOLLOW UP ONE (12:30)
[2016-10-25] MEDS: Ropinirole TAB* 0.5 MG TAB PO SCH (20:43)
[2016-10-25] MEDS ORDERED: Nystatin TOP POWDER* 15 GM BTL TOPICAL SCH (21:00)
[2016-10-25] MEDS: Ferrous Sulfate TAB* 325 MG PO SCH (21:00)
[2016-10-25] MEDS: clonazePAM TAB(*) 0.5 MG PO PRN (22:13)
[2016-10-26] MEDS: Vancomycin(*) 1,000 MG in NS 0.9% 250 ML* 250 ML IVPB SCH (01:44)
[2016-10-26] MEDS: Morphine INJ* 4 MG/ML 1 ML SYRINGE IV PRN ×2 (02:00→21:53)
[2016-10-26] MEDS: Baclofen TAB* 10 MG PO SCH ×3 (04:57→22:04)
[2016-10-26] MEDS: Heparin VIAL(*) 5000 UNITS/ML VIAL (FIVE THOUSAND) SUBCUT SCH ×3 (04:57→21:52)
[2016-10-26] MEDS: oxyCODONE/Acetamin 5/325 MG* TAB PO PRN (04:58)
[2016-10-26] MEDS: Budesonide NEB* 0.5 MG/2 ML NEB.SOLN INH SCH ×2 (08:15→20:08)
[2016-10-26] MEDS ORDERED: methylPREDNISolone SOD SUCC* 125 MG 2 ML VIAL IV ONE (08:59)
[2016-10-26] MEDS: amLODIPine TAB* 5 MG PO SCH (09:25)
[2016-10-26] MEDS: Aspirin EC Low Dose* 81 MG TAB.EC PO SCH (09:25)
[2016-10-26] MEDS: Ferrous Sulfate TAB* 325 MG PO SCH ×2 (09:25→21:52)
[2016-10-26] MEDS: methylPREDNISolone SOD SUCC* 40 MG/ML VIAL IV SCH (09:25)
[2016-10-26] MEDS: Gabapentin CAP(*) 300 MG PO SCH ×2 (09:26→21:52)
[2016-10-26] MEDS: FLUoxetine CAP* 20 MG PO SCH (09:26)
[2016-10-26] MEDS: Polyethylene Glycol 3350* 17 GM PACKET PO SCH (09:26)
[2016-10-26] MEDS: Theophylline TAB* 300 MG PO SCH (09:33)
[2016-10-26] MEDS ORDERED: Azithromycin IV(*) 250 MG in NS 0.9% 250 ML* 250 ML IVPB SCH (10:00)
--- NOTE | 2016-10-26 10:24 | PN ---
Subjective Date of Service: 10/26/16 Interval History: Patient is very teary on exam and is upset about her blood draws stating "they are very painful"and is complaining her food is "too thick" asking for thin liquids. Otherwise she is feeling better everyday, reports less secretions from trach today but continues to have frequent white/benjamin secretions from trach. Denies fever or chills. Objective Active Medications: Albuterol (Ventolin 2.5 Mg/3 Ml Neb.Zoe*) 2.5 mg INH Q4H PRN PRN Reason: WHEEZING Last Admin: 10/24/16 07:49 Dose: 2.5 mg Amlodipine Besylate (Norvasc Tab*) 5 mg PO DAILY [facility] Last Admin: 10/26/16 09:25 Dose: 5 mg Aspirin (Aspirin Ec Low Dose*) 81 mg PO QAM [facility] Last Admin: 10/26/16 09:25 Dose: 81 mg Baclofen (Lioresal Tab*) 10 mg PO Q8HR [facility] Last Admin: 10/26/16 04:57 Dose: 10 mg Budesonide (Pulmicort Neb*) 0.5 mg INH RT.BID [facility] Last Admin: 10/26/16 08:15 Dose: 0.5 mg Clonazepam (Klonopin Tab(*)) 0.5 mg PO Q6HR [facility] Ferrous Sulfate (Ferrous Sulfate Tab*) 325 mg PO BID [facility] Last Admin: 10/26/16 09:25 Dose: 325 mg Fluoxetine HCl (Prozac Cap*) 40 mg PO QAM [facility] Last Admin: 10/26/16 09:26 Dose: 40 mg Gabapentin (Neurontin Cap(*)) 300 mg PO BID [facility] Last Admin: 10/26/16 09:26 Dose: 300 mg Heparin Sodium (Porcine) (Heparin Vial(*)) 5,000 units SUBCUT Q8HR [facility] Last Admin: 10/26/16 04:57 Dose: 5,000 units Sodium Chloride (Ns 0.9% 1000 Ml*) 1,000 mls @ 40 mls/hr IV .PER RATE [facility] Last Admin: 10/25/16 17:18 Dose: 40 mls/hr Azithromycin 250 mg/ Sodium (Chloride) 250 mls @ 250 mls/hr IVPB Q24H [facility] Last Admin: 10/26/16 10:11 Dose: 250 mls/hr Morphine Sulfate (Morphine Inj (Syringe)*) 4 mg IV Q4H PRN PRN Reason: PAIN Last Admin: 10/26/16 02:00 Dose: 4 mg Oxycodone/Acetaminophen (Percocet 5/325 Tab*) 2 tab PO Q4H PRN PRN Reason: PAIN Last Admin: 10/26/16 04:58 Dose: 2 tab Polyethylene Glycol/Electrolytes (Miralax*) 17 gm PO DAILY [facility] Last Admin: 10/26/16 09:26 Dose: 17 gm Prednisone (Deltasone Tab*) 40 mg PO DAILY [facility] Ropinirole HCl (Requip Tab*) 0.5 mg PO BEDTIME [facility] Last Admin: 10/25/16 20:43 Dose: 0.5 mg Theophylline (Aayush Dur*) 300 mg PO DAILY [facility] Last Admin: 10/26/16 09:33 Dose: 300 mg Vital Signs 10/26/16 10/26/16 10/26/16 07:20 08:00 08:03 Temperature 97.7 F Pulse Rate 56 56 Respiratory 18 17 Rate Blood Pressure 146/57 (mmHg) O2 Sat by Pulse 98 96 Oximetry 10/26/16 10/26/16 10/26/16 08:57 09:00 09:05 Temperature Pulse Rate 98 68 65 Respiratory 18 21 19 Rate Blood Pressure 135/67 (mmHg) O2 Sat by Pulse 98 97 95 Oximetry 10/26/16 10:00 Temperature Pulse Rate 62 Respiratory 20 Rate Blood Pressure (mmHg) O2 Sat by Pulse 99 Oximetry Oxygen Devices in Use Now: - - mask - trach Appearance: 66 yo female appears chronically ill sitting up in a chair A+O x3, weepy. Eyes: No Scleral Icterus, PERRLA Ears/Nose/Mouth/Throat: Mucous Membranes Moist, - - poor dentition Neck: - - trach in place - no noted skin breakdown or erythema Respiratory: Symmetrical Chest Expansion and Respiratory Effort, Clear to Auscultation Cardiovascular: NL Sounds; No Murmurs; No JVD, RRR, No Edema Abdominal: NL Sounds; No Tenderness; No Distention, - - colostomy bag intact - no noted surrounding erythema - draining brown liquid stool Extremities: No Edema, No Clubbing, Cyanosis Skin: No Rash or Ulcers, No Nodules or Sclerosis Neurological: Alert and Oriented x 3, NL Sensation, NL Muscle Strength and Tone Lines/Tubes/Other Access: Clean, Dry and Intact PICC Line - mid-line Nutrition: Taking PO's - thickened Result Diagrams: 10/25/16 05:55 10/25/16 05:55 Additional Lab and Data: Lab Results 10/23/16 10/23/16 10/23/16 Range/Units 14:10 14:10 14:10 WBC 10.3 (3.5-10.8) 10^3/ul RBC 3.37 L (4.0-5.4) 10^6/ul Hgb 8.0 L (12.0-16.0) g/dl Hct 26 L (35-47) % MCV 77 L (80-97) fL MCH 24 L (27-31) pg MCHC 31 (31-36) g/dl RDW 18 H (10.5-15) % Plt Count 378 (150-450) 10^3/ul MPV 9 (7.4-10.4) um3 INR (Anticoag Therapy) 1.16 H (0.89-1.11) ABG pH (7.35-7.45) ABG pCO2 (35-45) mmHg ABG pO2 (80-100) mmHg ABG HCO3 (19-31) mmol/L ABG O2 Saturation ABG Base Excess (-2.0-2.0) O2 Delivery Device FiO2 Sodium 138 (133-145) mmol/L Potassium 5.3 H (3.5-5.0) mmol/L Chloride 101 (101-111) mmol/L Carbon Dioxide 29 (22-32) mmol/L Anion Gap 8 (2-11) mmol/L BUN 40 H (6-24) mg/dL Creatinine 2.36 H (0.51-0.95) mg/dL Est GFR ( Amer) 26.4 (>60) Est GFR (Non-Af Amer) 20.5 (>60) BUN/Creatinine Ratio 16.9 (8-20) Glucose 102 H (70-100) mg/dL Lactic Acid (0.5-2.0) mmol/L Calcium 8.9 (8.6-10.3) mg/dL Total Bilirubin 0.30 (0.2-1.0) mg/dL AST 27 (13-39) U/L ALT 10 (7-52) U/L Alkaline Phosphatase 70 (34-104) U/L Total Creatine Kinase 247 H (10-223) U/L CK-MB (CK-2) 2.3 (0.6-6.3) ng/mL Troponin I 0.08 H* (<0.04) ng/mL C-Reactive Protein 115.27 H (< 5.00) mg/L Total Protein 7.0 (6.4-8.9) g/dL Albumin 3.3 (3.2-5.2) g/dL Globulin 3.7 (2-4) g/dL Albumin/Globulin Ratio 0.9 L (1-3) 10/23/16 10/23/16 10/23/16 Range/Units 14:10 17:12 17:23 WBC (3.5-10.8) 10^3/ul RBC (4.0-5.4) 10^6/ul Hgb (12.0-16.0) g/dl Hct (35-47) % MCV (80-97) fL MCH (27-31) pg MCHC (31-36) g/dl RDW (10.5-15) % Plt Count (150-450) 10^3/ul MPV (7.4-10.4) um3 INR (Anticoag Therapy) (0.89-1.11) ABG pH 7.38 (7.35-7.45) ABG pCO2 54 H (35-45) mmHg ABG pO2 67 L (80-100) mmHg ABG HCO3 28.9 (19-31) mmol/L ABG O2 Saturation TNP ABG Base Excess 5.3 H (-2.0-2.0) O2 Delivery Device trach collar FiO2 35 Sodium (133-145) mmol/L Potassium (3.5-5.0) mmol/L Chloride (101-111) mmol/L Carbon Dioxide (22-32) mmol/L Anion Gap (2-11) mmol/L BUN (6-24) mg/dL Creatinine (0.51-0.95) mg/dL Est GFR ( Amer) (>60) Est GFR (Non-Af Amer) (>60) BUN/Creatinine Ratio (8-20) Glucose (70-100) mg/dL Lactic Acid 0.8 (0.5-2.0) mmol/L Calcium (8.6-10.3) mg/dL Total Bilirubin (0.2-1.0) mg/dL AST (13-39) U/L ALT (7-52) U/L Alkaline Phosphatase (34-104) U/L Total Creatine Kinase (10-223) U/L CK-MB (CK-2) (0.6-6.3) ng/mL Troponin I 0.06 H* (<0.04) ng/mL C-Reactive Protein (< 5.00) mg/L Total Protein (6.4-8.9) g/dL Albumin (3.2-5.2) g/dL Globulin (2-4) g/dL Albumin/Globulin Ratio (1-3) Microbiology and Other Data: Microbiology 10/24/16 16:22 Transfusion Reaction Culture - Preliminary Blood Bag Culture Under Incubation Transfusion Reaction Gram Stain - Final 10/24/16 12:15 Gram Stain - Final Sputum Trach 10/24/16 11:25 Nasal Screen MRSA (PCR)([facility]) - Final Nasal Mrsa Negative Assess/Plan/Problems-Billing Assessment: Ms. 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 Also holds a PMH of being treated for recent bronchitis/pneumonia multiple times this winter, COPD, long-term tobacco abuse recently quitting at time trach was placed, and HTN. - Patient Problems (1) Hypoxia Comment: - Suspect secondary to large mucus plug and recurrent acute Bronchitis. Hypoxia resolved. HCAP r/o. Suspect pulmonary edema is chronic. Afebrile, no leukocytosis. Clinically improving daily. - ENT, Dr. Corado evaluated the patient 10/24 and reports from his standpoint everything looks good - no noted edema or mucus noted on video-scope. - Appreciate Cigar Inspector consult - suspects recurrence tracheo-bronchitis with increasing respiratory secretions, lower suspicion for HCAP. - D/C Vanco - Sputum gram stain has no growth - DC solumedrol, switch to Predisone 40 mg once daily with taper - continue azithromycin (2) Status post tracheostomy Comment: -Trach placed 10/13 for laryngeal edema secondary to squamous cell carcinoma of the upper airway s/p chemo and XRT. - Patient was not being compliant with recommended swallow eval with thickened liquids at home. Education given to patient and daughter on the importance of following recommended guidelines from speech therapy. As well, possible over- use of passey-reinaldo valve - recommending using finger occlusion for now. - continue humidified air (3) Elevated troponin I level Comment: - suspect demand ischemia - no noted ischemic EKG changes. - Echo 10/24 showing normal LVEF 55-60%, mod-severe pulm HTN (4) COPD (chronic obstructive pulmonary disease) Comment: Continue nebs and humidified O2 to help keep secretions thin. (5) ARF (acute renal failure) Comment: - improving with IVFs. suspect a combination of lisinopril, lasix, poor po intake leading to hypovolemia. - strict I+O's (6) Bradycardia Comment: - noted bradycardia - hold metoprolol (7) Anemia Comment: - microcytic anemia - iron deficiency - 1 units PRBCs transfused 10/24 - HH stable - added on ferrous sulfate (8) Chronic pain Comment: - home dose oxycodone (9) Anxiety Comment: Continue prozac and prn clonazepam. (10) HTN (hypertension) Comment: hold home mariela, norvasc started (11) DVT prophylaxis Comment: SQ heparin (12) Full code status Status and Disposition: inpatient. Length of stay > 2 days. Plan for subacute. Updated daughter on plan of care.
[2016-10-26] MEDS: clonazePAM TAB(*) 0.5 MG PO SCH ×2 (12:29→18:39)
[2016-10-26] MEDS ORDERED: Vancomycin Trough Check NOTE FOLLOW UP ONE (12:30)
[2016-10-26] MEDS ORDERED: amLODIPine TAB* 5 MG PO ONE (16:12)
[2016-10-26] MEDS: Ropinirole TAB* 0.5 MG TAB PO SCH (22:04)
[2016-10-27] MEDS: clonazePAM TAB(*) 0.5 MG PO SCH ×4 (00:42→18:13)
[2016-10-27] MEDS: Baclofen TAB* 10 MG PO SCH ×3 (05:39→21:59)
[2016-10-27] MEDS: Heparin VIAL(*) 5000 UNITS/ML VIAL (FIVE THOUSAND) SUBCUT SCH ×3 (05:39→21:59)
[2016-10-27 06:46] LABS: Hematocrit 28 % (35-47); Hemoglobin 8.9 g/dl (12.0-16.0); Mean Corpuscular HGB Conc 31 g/dl (31-36); Mean Corpuscular Hemoglobin 25 pg (27-31); Mean Corpuscular Volume 79 fL (80-97); Mean Platelet Volume 8 um3 (7.4-10.4); Red Blood Count 3.62 10^6/ul (4.0-5.4); Red Cell Distribution Width 19 % (10.5-15); White Blood Count 5.9 10^3/ul (3.5-10.8)
[2016-10-27 07:04] LABS: BUN/Creatinine Ratio 23.5 (8-20); Calcium 9.1 mg/dL (8.6-10.3); EGFR African American 90.7 (>60); EGFR Non-African American 70.5 (>60); Potassium 3.5 mmol/L (3.5-5.0)
[2016-10-27] MEDS: Polyethylene Glycol 3350* 17 GM PACKET PO SCH (07:54)
[2016-10-27] MEDS: amLODIPine TAB* 5 MG PO SCH (07:55)
[2016-10-27] MEDS: Aspirin EC Low Dose* 81 MG TAB.EC PO SCH (07:55)
[2016-10-27] MEDS: FLUoxetine CAP* 20 MG PO SCH (07:55)
[2016-10-27] MEDS: Gabapentin CAP(*) 300 MG PO SCH ×2 (07:55→20:28)
[2016-10-27] MEDS: Ferrous Sulfate TAB* 325 MG PO SCH ×2 (07:55→20:28)
[2016-10-27] MEDS: oxyCODONE/Acetamin 5/325 MG* TAB PO PRN ×3 (07:56→20:30)
[2016-10-27] MEDS: Budesonide NEB* 0.5 MG/2 ML NEB.SOLN INH SCH ×2 (08:53→19:30)
[2016-10-27] MEDS: Theophylline TAB* 300 MG PO SCH (08:58)
[2016-10-27] MEDS ORDERED: predniSONE TAB* 20 MG PO SCH (09:00)
--- NOTE | 2016-10-27 10:22 | PN ---
Subjective Date of Service: 10/27/16 Interval History: patient reports she is feeling better today but continues to have "lot of mucus out of my trach". Biggest complaint is her "thickened liquids". Denies fever or chills. Denos SOb or CP. Reports she is "trying to eat". Discussed the importance of eating, drinking and drinking her ensure due to low protein stores. Objective Active Medications: Albuterol (Ventolin 2.5 Mg/3 Ml Neb.Zoe*) 2.5 mg INH Q4H PRN PRN Reason: WHEEZING Last Admin: 10/24/16 07:49 Dose: 2.5 mg Amlodipine Besylate (Norvasc Tab*) 5 mg PO DAILY [facility] Last Admin: 10/27/16 07:55 Dose: 5 mg Aspirin (Aspirin Ec Low Dose*) 81 mg PO QAM [facility] Last Admin: 10/27/16 07:55 Dose: 81 mg Baclofen (Lioresal Tab*) 10 mg PO Q8HR [facility] Last Admin: 10/27/16 05:39 Dose: 10 mg Budesonide (Pulmicort Neb*) 0.5 mg INH RT.BID [facility] Last Admin: 10/27/16 08:53 Dose: 0.5 mg Clonazepam (Klonopin Tab(*)) 0.5 mg PO Q6HR [facility] Last Admin: 10/27/16 05:39 Dose: 0.5 mg Ferrous Sulfate (Ferrous Sulfate Tab*) 325 mg PO BID [facility] Last Admin: 10/27/16 07:55 Dose: 325 mg Fluoxetine HCl (Prozac Cap*) 40 mg PO QAM [facility] Last Admin: 10/27/16 07:55 Dose: 40 mg Gabapentin (Neurontin Cap(*)) 300 mg PO BID [facility] Last Admin: 10/27/16 07:55 Dose: 300 mg Heparin Sodium (Porcine) (Heparin Vial(*)) 5,000 units SUBCUT Q8HR [facility] Last Admin: 10/27/16 05:39 Dose: 5,000 units Sodium Chloride (Ns 0.9% 1000 Ml*) 1,000 mls @ 40 mls/hr IV .PER RATE [facility] Last Admin: 10/25/16 17:18 Dose: 40 mls/hr Azithromycin 250 mg/ Sodium (Chloride) 250 mls @ 250 mls/hr IVPB Q24H [facility] Last Admin: 10/26/16 10:11 Dose: 250 mls/hr Morphine Sulfate (Morphine Inj (Syringe)*) 4 mg IV Q4H PRN PRN Reason: PAIN Last Admin: 10/26/16 21:53 Dose: 4 mg Oxycodone/Acetaminophen (Percocet 5/325 Tab*) 2 tab PO Q4H PRN PRN Reason: PAIN Last Admin: 10/27/16 07:56 Dose: 2 tab Polyethylene Glycol/Electrolytes (Miralax*) 17 gm PO DAILY [facility] Last Admin: 10/27/16 07:54 Dose: 17 gm Prednisone (Deltasone Tab*) 40 mg PO DAILY [facility] Last Admin: 10/27/16 07:54 Dose: 40 mg Ropinirole HCl (Requip Tab*) 0.5 mg PO BEDTIME [facility] Last Admin: 10/26/16 22:04 Dose: 0.5 mg Theophylline (Aayush Dur*) 300 mg PO DAILY [facility] Last Admin: 10/27/16 08:58 Dose: 300 mg Vital Signs 10/26/16 10/26/16 10/26/16 11:35 11:54 12:01 Temperature 97.8 F 97.8 F Pulse Rate 60 60 Respiratory 18 18 20 Rate Blood Pressure 160/67 160/67 (mmHg) O2 Sat by Pulse 99 99 Oximetry 10/26/16 10/26/16 10/26/16 12:29 14:29 15:31 Temperature 98.1 F Pulse Rate 73 Respiratory 16 18 20 Rate Blood Pressure 169/68 (mmHg) O2 Sat by Pulse 96 Oximetry 10/26/16 10/26/16 10/26/16 18:39 20:00 20:03 Temperature 98.2 F Pulse Rate 72 66 Respiratory 22 18 24 Rate Blood Pressure 170/64 (mmHg) O2 Sat by Pulse 98 96 Oximetry 10/26/16 10/26/16 10/26/16 20:39 21:52 21:53 Temperature Pulse Rate Respiratory 18 18 18 Rate Blood Pressure (mmHg) O2 Sat by Pulse Oximetry 10/26/16 10/26/16 10/26/16 22:53 23:52 23:56 Temperature Pulse Rate Respiratory 18 20 18 Rate Blood Pressure (mmHg) O2 Sat by Pulse Oximetry 10/27/16 10/27/16 10/27/16 00:00 00:24 00:42 Temperature 97.1 F Pulse Rate 58 Respiratory 20 20 Rate Blood Pressure 171/72 (mmHg) O2 Sat by Pulse 97 97 Oximetry 10/27/16 10/27/16 10/27/16 02:42 03:46 03:58 Temperature 97.6 F Pulse Rate 65 59 Respiratory 18 20 Rate Blood Pressure 178/83 180/70 (mmHg) O2 Sat by Pulse 99 Oximetry 10/27/16 10/27/16 10/27/16 05:39 07:39 07:53 Temperature 97.4 F Pulse Rate 54 Respiratory 18 20 18 Rate Blood Pressure 180/77 (mmHg) O2 Sat by Pulse 100 Oximetry 10/27/16 10/27/16 10/27/16 07:55 07:56 08:00 Temperature Pulse Rate Respiratory 22 22 22 Rate Blood Pressure (mmHg) O2 Sat by Pulse Oximetry 10/27/16 10/27/16 09:55 09:56 Temperature Pulse Rate Respiratory 18 18 Rate Blood Pressure (mmHg) O2 Sat by Pulse Oximetry Oxygen Devices in Use Now: - - mask - trach Appearance: 66 yo chronically ill appearing female sitting up on the side of the bed in NAD. A+Ox3 Eyes: No Scleral Icterus, PERRLA Neck: - - trach intact - white/benjamin mucus out of trach - no erythema or skin breakdown noted around trach site Respiratory: Symmetrical Chest Expansion and Respiratory Effort, Clear to Auscultation Cardiovascular: NL Sounds; No Murmurs; No JVD, RRR, No Edema Abdominal: NL Sounds; No Tenderness; No Distention Extremities: No Edema, No Clubbing, Cyanosis Skin: No Rash or Ulcers, No Nodules or Sclerosis Neurological: Alert and Oriented x 3, NL Sensation, NL Gait, NL Muscle Strength and Tone Lines/Tubes/Other Access: Clean, Dry and Intact Peripheral IV Nutrition: Taking PO's Result Diagrams: 10/27/16 06:20 10/27/16 06:20 Additional Lab and Data: Lab Results 10/23/16 10/23/16 10/23/16 Range/Units 14:10 14:10 14:10 WBC 10.3 (3.5-10.8) 10^3/ul RBC 3.37 L (4.0-5.4) 10^6/ul Hgb 8.0 L (12.0-16.0) g/dl Hct 26 L (35-47) % MCV 77 L (80-97) fL MCH 24 L (27-31) pg MCHC 31 (31-36) g/dl RDW 18 H (10.5-15) % Plt Count 378 (150-450) 10^3/ul MPV 9 (7.4-10.4) um3 INR (Anticoag Therapy) 1.16 H (0.89-1.11) ABG pH (7.35-7.45) ABG pCO2 (35-45) mmHg ABG pO2 (80-100) mmHg ABG HCO3 (19-31) mmol/L ABG O2 Saturation ABG Base Excess (-2.0-2.0) O2 Delivery Device FiO2 Sodium 138 (133-145) mmol/L Potassium 5.3 H (3.5-5.0) mmol/L Chloride 101 (101-111) mmol/L Carbon Dioxide 29 (22-32) mmol/L Anion Gap 8 (2-11) mmol/L BUN 40 H (6-24) mg/dL Creatinine 2.36 H (0.51-0.95) mg/dL Est GFR ( Amer) 26.4 (>60) Est GFR (Non-Af Amer) 20.5 (>60) BUN/Creatinine Ratio 16.9 (8-20) Glucose 102 H (70-100) mg/dL Lactic Acid (0.5-2.0) mmol/L Calcium 8.9 (8.6-10.3) mg/dL Total Bilirubin 0.30 (0.2-1.0) mg/dL AST 27 (13-39) U/L ALT 10 (7-52) U/L Alkaline Phosphatase 70 (34-104) U/L Total Creatine Kinase 247 H (10-223) U/L CK-MB (CK-2) 2.3 (0.6-6.3) ng/mL Troponin I 0.08 H* (<0.04) ng/mL C-Reactive Protein 115.27 H (< 5.00) mg/L Total Protein 7.0 (6.4-8.9) g/dL Albumin 3.3 (3.2-5.2) g/dL Globulin 3.7 (2-4) g/dL Albumin/Globulin Ratio 0.9 L (1-3) 10/23/16 10/23/16 10/23/16 Range/Units 14:10 17:12 17:23 WBC (3.5-10.8) 10^3/ul RBC (4.0-5.4) 10^6/ul Hgb (12.0-16.0) g/dl Hct (35-47) % MCV (80-97) fL MCH (27-31) pg MCHC (31-36) g/dl RDW (10.5-15) % Plt Count (150-450) 10^3/ul MPV (7.4-10.4) um3 INR (Anticoag Therapy) (0.89-1.11) ABG pH 7.38 (7.35-7.45) ABG pCO2 54 H (35-45) mmHg ABG pO2 67 L (80-100) mmHg ABG HCO3 28.9 (19-31) mmol/L ABG O2 Saturation TNP ABG Base Excess 5.3 H (-2.0-2.0) O2 Delivery Device trach collar FiO2 35 Sodium (133-145) mmol/L Potassium (3.5-5.0) mmol/L Chloride (101-111) mmol/L Carbon Dioxide (22-32) mmol/L Anion Gap (2-11) mmol/L BUN (6-24) mg/dL Creatinine (0.51-0.95) mg/dL Est GFR ( Amer) (>60) Est GFR (Non-Af Amer) (>60) BUN/Creatinine Ratio (8-20) Glucose (70-100) mg/dL Lactic Acid 0.8 (0.5-2.0) mmol/L Calcium (8.6-10.3) mg/dL Total Bilirubin (0.2-1.0) mg/dL AST (13-39) U/L ALT (7-52) U/L Alkaline Phosphatase (34-104) U/L Total Creatine Kinase (10-223) U/L CK-MB (CK-2) (0.6-6.3) ng/mL Troponin I 0.06 H* (<0.04) ng/mL C-Reactive Protein (< 5.00) mg/L Total Protein (6.4-8.9) g/dL Albumin (3.2-5.2) g/dL Globulin (2-4) g/dL Albumin/Globulin Ratio (1-3) Microbiology and Other Data: Microbiology 10/24/16 16:22 Transfusion Reaction Culture - Preliminary Blood Bag Culture Under Incubation Transfusion Reaction Gram Stain - Final 10/24/16 12:15 Gram Stain - Final Sputum Trach 10/24/16 11:25 Nasal Screen MRSA (PCR)(EUNICE) - Final Nasal Mrsa Negative Assess/Plan/Problems-Billing Assessment: Ms. 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 Also holds a PMH of being treated for recent bronchitis/pneumonia multiple times this winter, COPD, long-term tobacco abuse recently quitting at time trach was placed, and HTN. - Patient Problems (1) Hypoxia Comment: - Suspect secondary to large mucus plug and recurrent acute Bronchitis. Hypoxia resolved. HCAP r/o. Suspect pulmonary edema is chronic. Afebrile, no leukocytosis. Clinically improving daily. - ENT, Dr. Corado evaluated the patient 10/24 and reports from his standpoint everything looks good - no noted edema or mucus noted on video-scope. - Appreciate Humid System Operator consult - suspects recurrence tracheo-bronchitis with increasing respiratory secretions, lower suspicion for HCAP. 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 - Patient was not being compliant with recommended swallow eval with thickened liquids at home. Education given to patient and daughter on the importance of following recommended guidelines from speech therapy. As well, possible over- use of passey-reinaldo valve - recommending using finger occlusion for now. - continue humidified air to help thin secretions (3) Elevated troponin I level Comment: - suspect demand ischemia - no noted ischemic EKG changes. - Echo 10/24 showing normal LVEF 55-60%, mod-severe pulm HTN (4) COPD (chronic obstructive pulmonary disease) Comment: Continue nebs and humidified O2 to help keep secretions thin. (5) ARF (acute renal failure) Comment: - Resolved with IVFs. suspect a combination of lisinopril, lasix, poor po intake leading to hypovolemia. - strict I+O's (6) Bradycardia Comment: - Resolved - continue decreased metoprolol dose (7) Anemia Comment: - asymptomatic - microcytic anemia - iron deficiency - 1 units PRBCs transfused 10/24 - HH stable - added on ferrous sulfate (8) HTN (hypertension) Comment: Tranding up. She was taken off her lasix and mariela on admission due to NAOMI. Continue to hold home mariela/lasix, norvasc started, increase dosage to 10 mg daily - restart BB at a lower dose (9) Chronic pain Comment: - home dose oxycodone (10) Anxiety Comment: Continue prozac and prn clonazepam. (11) DVT prophylaxis Comment: SQ heparin (12) Full code status Status and Disposition: inpatient. Length of stay > 2 days. Plan for subacute.
[2016-10-27] MEDS ORDERED: amLODIPine TAB* 5 MG PO ONE (10:24)
[2016-10-27] MEDS ORDERED: amLODIPine TAB* 5 MG ONE (10:32)
[2016-10-27] MEDS: Metoprolol Tartrate TAB* 25 MG PO SCH (20:27)
[2016-10-27] MEDS: Ropinirole TAB* 0.5 MG TAB PO SCH (20:29)
[2016-10-28] MEDS: clonazePAM TAB(*) 0.5 MG PO SCH ×4 (01:27→18:06)
[2016-10-28] MEDS: oxyCODONE/Acetamin 5/325 MG* TAB PO PRN ×4 (02:41→22:23)
[2016-10-28] MEDS: Baclofen TAB* 10 MG PO SCH ×3 (05:31→22:16)
[2016-10-28] MEDS: Heparin VIAL(*) 5000 UNITS/ML VIAL (FIVE THOUSAND) SUBCUT SCH ×3 (05:31→22:18)
[2016-10-28] MEDS: Budesonide NEB* 0.5 MG/2 ML NEB.SOLN INH SCH ×2 (07:11→19:54)
[2016-10-28] MEDS: Metoprolol Tartrate TAB* 25 MG PO SCH (08:01)
[2016-10-28] MEDS: Theophylline TAB* 300 MG PO SCH (08:03)
[2016-10-28] MEDS: Gabapentin CAP(*) 300 MG PO SCH ×2 (08:03→22:13)
[2016-10-28] MEDS: FLUoxetine CAP* 20 MG PO SCH (08:04)
[2016-10-28] MEDS: Aspirin EC Low Dose* 81 MG TAB.EC PO SCH (08:05)
[2016-10-28] MEDS: amLODIPine TAB* 5 MG PO SCH (08:08)
[2016-10-28] MEDS: Ferrous Sulfate TAB* 325 MG PO SCH ×2 (08:11→22:16)
[2016-10-28] MEDS: Polyethylene Glycol 3350* 17 GM PACKET PO SCH ×2 (08:12→12:01)
[2016-10-28] MEDS ORDERED: predniSONE TAB* 10 MG PO SCH (09:00)
--- NOTE | 2016-10-28 10:48 | PN ---
Subjective Date of Service: 10/28/16 Interval History: pt continues to feel better today and is reporting she is doing much better with her trach care and feeling more comfortable. Denies fever or chills. No SOB. Reports she is eating and drinking well "even with the thickened fluids" stating she understands she is at high risk for aspirating if she doesn't. Objective Active Medications: Albuterol (Ventolin 2.5 Mg/3 Ml Neb.Zoe*) 2.5 mg INH Q4H PRN PRN Reason: WHEEZING Last Admin: 10/24/16 07:49 Dose: 2.5 mg Amlodipine Besylate (Norvasc Tab*) 10 mg PO DAILY [facility] Last Admin: 10/28/16 08:08 Dose: 10 mg Aspirin (Aspirin Ec Low Dose*) 81 mg PO QAM [facility] Last Admin: 10/28/16 08:05 Dose: 81 mg Baclofen (Lioresal Tab*) 10 mg PO Q8HR [facility] Last Admin: 10/28/16 05:31 Dose: 10 mg Budesonide (Pulmicort Neb*) 0.5 mg INH RT.BID [facility] Last Admin: 10/28/16 07:11 Dose: 0.5 mg Clonazepam (Klonopin Tab(*)) 0.5 mg PO Q6HR [facility] Last Admin: 10/28/16 05:31 Dose: 0.5 mg Ferrous Sulfate (Ferrous Sulfate Tab*) 325 mg PO BID [facility] Last Admin: 10/28/16 08:11 Dose: 325 mg Fluoxetine HCl (Prozac Cap*) 40 mg PO QAM [facility] Last Admin: 10/28/16 08:04 Dose: 40 mg Gabapentin (Neurontin Cap(*)) 300 mg PO BID [facility] Last Admin: 10/28/16 08:03 Dose: 300 mg Heparin Sodium (Porcine) (Heparin Vial(*)) 5,000 units SUBCUT Q8HR [facility] Last Admin: 10/28/16 05:31 Dose: 5,000 units Metoprolol Tartrate (Lopressor Tab*) 12.5 mg PO Q12HR [facility] Last Admin: 10/28/16 08:01 Dose: 12.5 mg Morphine Sulfate (Morphine Inj (Syringe)*) 4 mg IV Q4H PRN PRN Reason: PAIN Last Admin: 10/26/16 21:53 Dose: 4 mg Oxycodone/Acetaminophen (Percocet 5/325 Tab*) 2 tab PO Q4H PRN PRN Reason: PAIN Last Admin: 10/28/16 08:01 Dose: 2 tab Polyethylene Glycol/Electrolytes (Miralax*) 17 gm PO DAILY [facility] Last Admin: 10/28/16 08:12 Dose: Not Given Prednisone (Deltasone Tab*) 30 mg PO DAILY [facility] Last Admin: 10/28/16 08:06 Dose: 30 mg Ropinirole HCl (Requip Tab*) 0.5 mg PO BEDTIME [facility] Last Admin: 10/27/16 20:29 Dose: 0.5 mg Theophylline (Aayush Dur*) 300 mg PO DAILY [facility] Last Admin: 10/28/16 08:03 Dose: 300 mg Vital Signs 10/27/16 10/27/16 10/27/16 11:43 12:27 13:24 Temperature 97.4 F Pulse Rate 76 Respiratory 20 18 Rate Blood Pressure 163/73 (mmHg) O2 Sat by Pulse 95 96 Oximetry 10/27/16 10/27/16 10/27/16 13:43 14:12 15:50 Temperature 98.1 F Pulse Rate 68 Respiratory 20 18 22 Rate Blood Pressure 143/80 (mmHg) O2 Sat by Pulse 96 Oximetry 10/27/16 10/27/16 10/27/16 16:12 18:13 19:22 Temperature 97.2 F Pulse Rate 63 Respiratory 20 22 22 Rate Blood Pressure 154/68 (mmHg) O2 Sat by Pulse 97 Oximetry 10/27/16 10/27/16 10/27/16 19:32 19:33 20:13 Temperature Pulse Rate 63 Respiratory 15 18 15 Rate Blood Pressure 154/68 (mmHg) O2 Sat by Pulse 98 Oximetry 10/27/16 10/27/16 10/27/16 20:28 20:30 22:30 Temperature Pulse Rate Respiratory 15 15 16 Rate Blood Pressure (mmHg) O2 Sat by Pulse Oximetry 10/27/16 10/28/16 10/28/16 22:55 00:00 00:28 Temperature 97.8 F Pulse Rate 50 Respiratory 14 15 Rate Blood Pressure 132/58 (mmHg) O2 Sat by Pulse 91 96 Oximetry 10/28/16 10/28/16 10/28/16 02:41 03:57 04:41 Temperature 97.5 F Pulse Rate 50 Respiratory 15 16 15 Rate Blood Pressure 126/63 (mmHg) O2 Sat by Pulse 99 Oximetry 10/28/16 10/28/16 10/28/16 05:31 07:15 07:31 Temperature Pulse Rate 60 Respiratory 16 15 20 Rate Blood Pressure (mmHg) O2 Sat by Pulse 99 Oximetry 10/28/16 10/28/16 10/28/16 08:00 08:01 08:03 Temperature Pulse Rate Respiratory 18 16 16 Rate Blood Pressure (mmHg) O2 Sat by Pulse Oximetry 10/28/16 10/28/16 10/28/16 08:20 08:35 09:57 Temperature 97.3 F Pulse Rate 52 Respiratory 18 20 Rate Blood Pressure 112/60 (mmHg) O2 Sat by Pulse 97 Oximetry 10/28/16 09:58 Temperature Pulse Rate Respiratory 20 Rate Blood Pressure (mmHg) O2 Sat by Pulse Oximetry Oxygen Devices in Use Now: None - mask - trach Appearance: 66 yo female sitting on the side of the bed in NAD. A+Ox3 Eyes: No Scleral Icterus, PERRLA Ears/Nose/Mouth/Throat: NL Teeth, Lips, Gums, Mucous Membranes Moist Neck: - - trach intact - no noted erythema or skin breakdown Respiratory: Symmetrical Chest Expansion and Respiratory Effort, Clear to Auscultation Cardiovascular: NL Sounds; No Murmurs; No JVD, RRR, No Edema Abdominal: NL Sounds; No Tenderness; No Distention Extremities: No Edema, No Clubbing, Cyanosis Skin: No Rash or Ulcers, No Nodules or Sclerosis Neurological: Alert and Oriented x 3, NL Sensation, NL Gait, NL Muscle Strength and Tone Lines/Tubes/Other Access: Clean, Dry and Intact Peripheral IV Nutrition: Taking PO's Result Diagrams: 10/27/16 06:20 10/27/16 06:20 Additional Lab and Data: Lab Results 10/23/16 10/23/16 10/23/16 Range/Units 14:10 14:10 14:10 WBC 10.3 (3.5-10.8) 10^3/ul RBC 3.37 L (4.0-5.4) 10^6/ul Hgb 8.0 L (12.0-16.0) g/dl Hct 26 L (35-47) % MCV 77 L (80-97) fL MCH 24 L (27-31) pg MCHC 31 (31-36) g/dl RDW 18 H (10.5-15) % Plt Count 378 (150-450) 10^3/ul MPV 9 (7.4-10.4) um3 INR (Anticoag Therapy) 1.16 H (0.89-1.11) ABG pH (7.35-7.45) ABG pCO2 (35-45) mmHg ABG pO2 (80-100) mmHg ABG HCO3 (19-31) mmol/L ABG O2 Saturation ABG Base Excess (-2.0-2.0) O2 Delivery Device FiO2 Sodium 138 (133-145) mmol/L Potassium 5.3 H (3.5-5.0) mmol/L Chloride 101 (101-111) mmol/L Carbon Dioxide 29 (22-32) mmol/L Anion Gap 8 (2-11) mmol/L BUN 40 H (6-24) mg/dL Creatinine 2.36 H (0.51-0.95) mg/dL Est GFR ( Amer) 26.4 (>60) Est GFR (Non-Af Amer) 20.5 (>60) BUN/Creatinine Ratio 16.9 (8-20) Glucose 102 H (70-100) mg/dL Lactic Acid (0.5-2.0) mmol/L Calcium 8.9 (8.6-10.3) mg/dL Total Bilirubin 0.30 (0.2-1.0) mg/dL AST 27 (13-39) U/L ALT 10 (7-52) U/L Alkaline Phosphatase 70 (34-104) U/L Total Creatine Kinase 247 H (10-223) U/L CK-MB (CK-2) 2.3 (0.6-6.3) ng/mL Troponin I 0.08 H* (<0.04) ng/mL C-Reactive Protein 115.27 H (< 5.00) mg/L Total Protein 7.0 (6.4-8.9) g/dL Albumin 3.3 (3.2-5.2) g/dL Globulin 3.7 (2-4) g/dL Albumin/Globulin Ratio 0.9 L (1-3) 10/23/16 10/23/16 10/23/16 Range/Units 14:10 17:12 17:23 WBC (3.5-10.8) 10^3/ul RBC (4.0-5.4) 10^6/ul Hgb (12.0-16.0) g/dl Hct (35-47) % MCV (80-97) fL MCH (27-31) pg MCHC (31-36) g/dl RDW (10.5-15) % Plt Count (150-450) 10^3/ul MPV (7.4-10.4) um3 INR (Anticoag Therapy) (0.89-1.11) ABG pH 7.38 (7.35-7.45) ABG pCO2 54 H (35-45) mmHg ABG pO2 67 L (80-100) mmHg ABG HCO3 28.9 (19-31) mmol/L ABG O2 Saturation TNP ABG Base Excess 5.3 H (-2.0-2.0) O2 Delivery Device trach collar FiO2 35 Sodium (133-145) mmol/L Potassium (3.5-5.0) mmol/L Chloride (101-111) mmol/L Carbon Dioxide (22-32) mmol/L Anion Gap (2-11) mmol/L BUN (6-24) mg/dL Creatinine (0.51-0.95) mg/dL Est GFR ( Amer) (>60) Est GFR (Non-Af Amer) (>60) BUN/Creatinine Ratio (8-20) Glucose (70-100) mg/dL Lactic Acid 0.8 (0.5-2.0) mmol/L Calcium (8.6-10.3) mg/dL Total Bilirubin (0.2-1.0) mg/dL AST (13-39) U/L ALT (7-52) U/L Alkaline Phosphatase (34-104) U/L Total Creatine Kinase (10-223) U/L CK-MB (CK-2) (0.6-6.3) ng/mL Troponin I 0.06 H* (<0.04) ng/mL C-Reactive Protein (< 5.00) mg/L Total Protein (6.4-8.9) g/dL Albumin (3.2-5.2) g/dL Globulin (2-4) g/dL Albumin/Globulin Ratio (1-3) Microbiology and Other Data: Microbiology 10/24/16 16:22 Transfusion Reaction Culture - Preliminary Blood Bag Culture Under Incubation Transfusion Reaction Gram Stain - Final 10/24/16 12:15 Gram Stain - Final Sputum Trach 10/24/16 11:25 Nasal Screen MRSA (PCR)([facility]ICE) - Final Nasal Mrsa Negative Assess/Plan/Problems-Billing Assessment: Ms. 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 Also holds a PMH of being treated for recent bronchitis/pneumonia multiple times this winter, COPD, long-term tobacco abuse recently quitting at time trach was placed, and HTN. - Patient Problems (1) Hypoxia Comment: - Suspect secondary to large mucus plug and recurrent acute Bronchitis. Hypoxia resolved. HCAP r/o. Suspect pulmonary edema is chronic. Afebrile, no leukocytosis. Clinically improving daily. - ENT, Dr. Corado evaluated the patient 10/24 and reports from his standpoint everything looks good - no noted edema or mucus noted on video-scope. - Appreciate [employer] Paralegal consult - suspects recurrence tracheo-bronchitis with increasing respiratory secretions, lower suspicion for HCAP. 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 - Patient was not being compliant with recommended swallow eval with thickened liquids at home. Education given to patient and daughter on the importance of following recommended guidelines from speech therapy. As well, possible over- use of passey-reinaldo valve - recommending using finger occlusion for now. - continue humidified air to help thin secretions - pt being more involved in trach care. (3) Elevated troponin I level Comment: - suspect demand ischemia - no noted ischemic EKG changes. - Echo 10/24 showing normal LVEF 55-60%, mod-severe pulm HTN (4) COPD (chronic obstructive pulmonary disease) Comment: Continue nebs and humidified O2 to help keep secretions thin. (5) ARF (acute renal failure) Comment: - Resolved with IVFs. suspect a combination of lisinopril, lasix, poor po intake leading to hypovolemia. - strict I+O's (6) Bradycardia Comment: - DC metoprolol - even with decreased dose HR 50s. (7) Anemia Comment: - asymptomatic - microcytic anemia - iron deficiency - 1 units PRBCs transfused 10/24 - HH stable - added on ferrous sulfate (8) HTN (hypertension) Comment: Trending up. She was taken off her lasix and mariela on admission due to NAOMI. Continue to hold home mariela/lasix, norvasc started, increase dosage to 10 mg daily (9) Chronic pain Comment: - home dose oxycodone (10) Anxiety Comment: Continue prozac and prn clonazepam. (11) DVT prophylaxis Comment: SQ heparin (12) Full code status Status and Disposition: inpatient. Length of stay > 2 days. Plan for subacute.
[2016-10-28] MEDS: Ropinirole TAB* 0.5 MG TAB PO SCH (22:14)
[2016-10-29] MEDS: clonazePAM TAB(*) 0.5 MG PO SCH ×5 (00:32→23:41)
[2016-10-29] MEDS: oxyCODONE/Acetamin 5/325 MG* TAB PO PRN ×4 (03:48→22:37)
[2016-10-29] MEDS: Baclofen TAB* 10 MG PO SCH ×3 (05:46→22:34)
[2016-10-29] MEDS: Heparin VIAL(*) 5000 UNITS/ML VIAL (FIVE THOUSAND) SUBCUT SCH ×3 (05:47→22:33)
[2016-10-29] MEDS: Budesonide NEB* 0.5 MG/2 ML NEB.SOLN INH SCH ×2 (07:01→19:33)
--- NOTE | 2016-10-29 07:15 | PN ---
Subjective Date of Service: 10/29/16 Interval History: patient reports she had a good night and is continuing to be more independent with the trach care. is not able to deep suction herself. She continues to have lots of mucus but it is not as thick. No fevers or chills. No SOB, CP or orthopnea Objective Active Medications: Albuterol (Ventolin 2.5 Mg/3 Ml Neb.Zoe*) 2.5 mg INH Q4H PRN PRN Reason: WHEEZING Last Admin: 10/24/16 07:49 Dose: 2.5 mg Amlodipine Besylate (Norvasc Tab*) 10 mg PO DAILY [facility] Last Admin: 10/28/16 08:08 Dose: 10 mg Aspirin (Aspirin Ec Low Dose*) 81 mg PO QAM [facility] Last Admin: 10/28/16 08:05 Dose: 81 mg Baclofen (Lioresal Tab*) 10 mg PO Q8HR [facility] Last Admin: 10/29/16 05:46 Dose: 10 mg Budesonide (Pulmicort Neb*) 0.5 mg INH RT.BID [facility] Last Admin: 10/29/16 07:01 Dose: 0.5 mg Clonazepam (Klonopin Tab(*)) 0.5 mg PO Q6HR [facility] Last Admin: 10/29/16 05:46 Dose: 0.5 mg Ferrous Sulfate (Ferrous Sulfate Tab*) 325 mg PO BID [facility] Last Admin: 10/28/16 22:16 Dose: 325 mg Fluoxetine HCl (Prozac Cap*) 40 mg PO QAM [facility] Last Admin: 10/28/16 08:04 Dose: 40 mg Gabapentin (Neurontin Cap(*)) 300 mg PO BID [facility] Last Admin: 10/28/16 22:13 Dose: 300 mg Heparin Sodium (Porcine) (Heparin Vial(*)) 5,000 units SUBCUT Q8HR [facility] Last Admin: 10/29/16 05:47 Dose: 5,000 units Morphine Sulfate (Morphine Inj (Syringe)*) 4 mg IV Q4H PRN PRN Reason: PAIN Last Admin: 10/26/16 21:53 Dose: 4 mg Oxycodone/Acetaminophen (Percocet 5/325 Tab*) 2 tab PO Q4H PRN PRN Reason: PAIN Last Admin: 10/29/16 03:48 Dose: 2 tab Polyethylene Glycol/Electrolytes (Miralax*) 17 gm PO DAILY [facility] Last Admin: 10/28/16 12:01 Dose: 17 gm Prednisone (Deltasone Tab*) 20 mg PO DAILY [facility] Ropinirole HCl (Requip Tab*) 0.5 mg PO BEDTIME [facility] Last Admin: 10/28/16 22:14 Dose: 0.5 mg Theophylline (Aayush Dur*) 300 mg PO DAILY [facility] Last Admin: 10/28/16 08:03 Dose: 300 mg Vital Signs 10/28/16 10/29/16 10/29/16 23:34 00:13 00:23 Temperature 97.3 F Pulse Rate 49 Respiratory 20 16 16 Rate Blood Pressure 131/55 (mmHg) O2 Sat by Pulse 96 Oximetry 10/29/16 10/29/16 10/29/16 00:32 03:41 03:48 Temperature 97.8 F Pulse Rate 53 Respiratory 16 20 20 Rate Blood Pressure 156/66 (mmHg) O2 Sat by Pulse 100 Oximetry 10/29/16 10/29/16 10/29/16 05:46 05:48 07:06 Temperature Pulse Rate 59 Respiratory 18 16 18 Rate Blood Pressure (mmHg) O2 Sat by Pulse 98 Oximetry Oxygen Devices in Use Now: - - trach with mask with humidfied oxygen Appearance: 66 yo female laying in bed A+O x3 in NAD Eyes: No Scleral Icterus, PERRLA Ears/Nose/Mouth/Throat: NL Teeth, Lips, Gums, Mucous Membranes Moist Neck: - - trach intact - no noted erythema or skin breakdown noted around trach Respiratory: Symmetrical Chest Expansion and Respiratory Effort, Clear to Auscultation Cardiovascular: NL Sounds; No Murmurs; No JVD, RRR, No Edema Abdominal: NL Sounds; No Tenderness; No Distention, - - obese; colostomy intact draining brown liquid stool Extremities: No Edema, No Clubbing, Cyanosis Skin: No Rash or Ulcers, No Nodules or Sclerosis Neurological: Alert and Oriented x 3, NL Sensation, NL Gait, NL Muscle Strength and Tone Lines/Tubes/Other Access: Clean, Dry and Intact Peripheral IV Nutrition: Taking PO's Result Diagrams: 10/27/16 06:20 10/27/16 06:20 Additional Lab and Data: Lab Results 10/23/16 10/23/16 10/23/16 Range/Units 14:10 14:10 14:10 WBC 10.3 (3.5-10.8) 10^3/ul RBC 3.37 L (4.0-5.4) 10^6/ul Hgb 8.0 L (12.0-16.0) g/dl Hct 26 L (35-47) % MCV 77 L (80-97) fL MCH 24 L (27-31) pg MCHC 31 (31-36) g/dl RDW 18 H (10.5-15) % Plt Count 378 (150-450) 10^3/ul MPV 9 (7.4-10.4) um3 INR (Anticoag Therapy) 1.16 H (0.89-1.11) ABG pH (7.35-7.45) ABG pCO2 (35-45) mmHg ABG pO2 (80-100) mmHg ABG HCO3 (19-31) mmol/L ABG O2 Saturation ABG Base Excess (-2.0-2.0) O2 Delivery Device FiO2 Sodium 138 (133-145) mmol/L Potassium 5.3 H (3.5-5.0) mmol/L Chloride 101 (101-111) mmol/L Carbon Dioxide 29 (22-32) mmol/L Anion Gap 8 (2-11) mmol/L BUN 40 H (6-24) mg/dL Creatinine 2.36 H (0.51-0.95) mg/dL Est GFR ( Amer) 26.4 (>60) Est GFR (Non-Af Amer) 20.5 (>60) BUN/Creatinine Ratio 16.9 (8-20) Glucose 102 H (70-100) mg/dL Lactic Acid (0.5-2.0) mmol/L Calcium 8.9 (8.6-10.3) mg/dL Total Bilirubin 0.30 (0.2-1.0) mg/dL AST 27 (13-39) U/L ALT 10 (7-52) U/L Alkaline Phosphatase 70 (34-104) U/L Total Creatine Kinase 247 H (10-223) U/L CK-MB (CK-2) 2.3 (0.6-6.3) ng/mL Troponin I 0.08 H* (<0.04) ng/mL C-Reactive Protein 115.27 H (< 5.00) mg/L Total Protein 7.0 (6.4-8.9) g/dL Albumin 3.3 (3.2-5.2) g/dL Globulin 3.7 (2-4) g/dL Albumin/Globulin Ratio 0.9 L (1-3) 10/23/16 10/23/16 10/23/16 Range/Units 14:10 17:12 17:23 WBC (3.5-10.8) 10^3/ul RBC (4.0-5.4) 10^6/ul Hgb (12.0-16.0) g/dl Hct (35-47) % MCV (80-97) fL MCH (27-31) pg MCHC (31-36) g/dl RDW (10.5-15) % Plt Count (150-450) 10^3/ul MPV (7.4-10.4) um3 INR (Anticoag Therapy) (0.89-1.11) ABG pH 7.38 (7.35-7.45) ABG pCO2 54 H (35-45) mmHg ABG pO2 67 L (80-100) mmHg ABG HCO3 28.9 (19-31) mmol/L ABG O2 Saturation TNP ABG Base Excess 5.3 H (-2.0-2.0) O2 Delivery Device trach collar FiO2 35 Sodium (133-145) mmol/L Potassium (3.5-5.0) mmol/L Chloride (101-111) mmol/L Carbon Dioxide (22-32) mmol/L Anion Gap (2-11) mmol/L BUN (6-24) mg/dL Creatinine (0.51-0.95) mg/dL Est GFR ( Amer) (>60) Est GFR (Non-Af Amer) (>60) BUN/Creatinine Ratio (8-20) Glucose (70-100) mg/dL Lactic Acid 0.8 (0.5-2.0) mmol/L Calcium (8.6-10.3) mg/dL Total Bilirubin (0.2-1.0) mg/dL AST (13-39) U/L ALT (7-52) U/L Alkaline Phosphatase (34-104) U/L Total Creatine Kinase (10-223) U/L CK-MB (CK-2) (0.6-6.3) ng/mL Troponin I 0.06 H* (<0.04) ng/mL C-Reactive Protein (< 5.00) mg/L Total Protein (6.4-8.9) g/dL Albumin (3.2-5.2) g/dL Globulin (2-4) g/dL Albumin/Globulin Ratio (1-3) Microbiology and Other Data: Microbiology 10/24/16 16:22 Transfusion Reaction Culture - Preliminary Blood Bag Culture Under Incubation Transfusion Reaction Gram Stain - Final 10/24/16 12:15 Gram Stain - Final Sputum Trach 10/24/16 11:25 Nasal Screen MRSA (PCR)(EUNICE) - Final Nasal Mrsa Negative Assess/Plan/Problems-Billing Assessment: Ms. 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 Also holds a PMH of being treated for recent bronchitis/pneumonia multiple times this winter, COPD, long-term tobacco abuse recently quitting at time trach was placed, and HTN. - Patient Problems (1) Hypoxia Comment: - Suspect secondary to large mucus plug and recurrent acute Bronchitis. Hypoxia resolved. HCAP r/o. Suspect pulmonary edema is chronic. Afebrile, no leukocytosis. Clinically improving daily. - ENT, Dr. Corado evaluated the patient 10/24 and reports from his standpoint everything looks good - no noted edema or mucus noted on video-scope. - Appreciate Civil Preparedness Coordinator consult - suspects recurrence tracheo-bronchitis with increasing respiratory secretions, lower suspicion for HCAP. 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 - Patient was not being compliant with recommended swallow eval with thickened liquids at home. Education given to patient and daughter on the importance of following recommended guidelines from speech therapy. As well, possible over- use of passey-reinaldo valve - recommending using finger occlusion for now. - continue humidified air to help thin secretions - pt being more involved in trach care and has had a lot of improvement but continues to need help with deep suctioning. (3) Elevated troponin I level Comment: - suspect demand ischemia - no noted ischemic EKG changes. - Echo 10/24 showing normal LVEF 55-60%, mod-severe pulm HTN (4) COPD (chronic obstructive pulmonary disease) Comment: Continue nebs and humidified O2 to help keep secretions thin. (5) ARF (acute renal failure) Comment: - Resolved with IVFs. suspect a combination of lisinopril, lasix, poor po intake leading to hypovolemia. - strict I+O's (6) Bradycardia Comment: - DC metoprolol - even with decreased dose HR 50s. (7) Anemia Comment: - asymptomatic - microcytic anemia - iron deficiency - 1 units PRBCs transfused 10/24 - HH stable - added on ferrous sulfate (8) HTN (hypertension) Comment: improving. She was taken off her lasix and mariela on admission due to NAOMI. Continue to hold home mariela/lasix, norvasc started, increase dosage to 10 mg daily. Pt reports she takes lasix for HTN and "almost had CHF". She has been doing well w/o lasix. Plan to add low dose HCTZ today. (9) Chronic pain Comment: - home dose oxycodone (10) Anxiety Comment: Continue prozac and prn clonazepam. (11) DVT prophylaxis Comment: SQ heparin (12) Full code status Status and Disposition: inpatient. Plan for subacute possibly Sunday at a facility that manages trachs, facility has an RT 24/hrs a day.
[2016-10-29] MEDS: Polyethylene Glycol 3350* 17 GM PACKET PO SCH (08:45)
[2016-10-29] MEDS: Theophylline TAB* 300 MG PO SCH (08:46)
[2016-10-29] MEDS: amLODIPine TAB* 5 MG PO SCH (08:47)
[2016-10-29] MEDS: predniSONE TAB* 10 MG PO SCH (08:47)
[2016-10-29] MEDS: FLUoxetine CAP* 20 MG PO SCH (08:47)
[2016-10-29] MEDS: Aspirin EC Low Dose* 81 MG TAB.EC PO SCH (08:48)
[2016-10-29] MEDS: Gabapentin CAP(*) 300 MG PO SCH ×2 (08:48→22:36)
[2016-10-29] MEDS: Ferrous Sulfate TAB* 325 MG PO SCH ×2 (08:49→22:34)
[2016-10-29] MEDS: Hydrochlorothiazide TAB* 25 MG PO SCH (08:50)
[2016-10-29] MEDS: Ropinirole TAB* 0.5 MG TAB PO SCH (22:35)
[2016-10-30] MEDS: Heparin VIAL(*) 5000 UNITS/ML VIAL (FIVE THOUSAND) SUBCUT SCH (04:57)
[2016-10-30] MEDS: Baclofen TAB* 10 MG PO SCH (05:01)
[2016-10-30] MEDS: clonazePAM TAB(*) 0.5 MG PO SCH (05:01)
[2016-10-30] MEDS: oxyCODONE/Acetamin 5/325 MG* TAB PO PRN ×2 (05:04→08:46)
[2016-10-30 08:19] VITALS: BP 155/68
[2016-10-30] MEDS: Polyethylene Glycol 3350* 17 GM PACKET PO SCH (08:41)
[2016-10-30] MEDS: amLODIPine TAB* 5 MG PO SCH (08:45)
[2016-10-30] MEDS: Gabapentin CAP(*) 300 MG PO SCH (08:46)
[2016-10-30] MEDS: Ferrous Sulfate TAB* 325 MG PO SCH (08:46)
[2016-10-30] MEDS: Aspirin EC Low Dose* 81 MG TAB.EC PO SCH (08:46)
[2016-10-30] MEDS: Theophylline TAB* 300 MG PO SCH (08:47)
[2016-10-30] MEDS: predniSONE TAB* 10 MG PO SCH (08:47)
[2016-10-30] MEDS: FLUoxetine CAP* 20 MG PO SCH (08:47)
[2016-10-30] MEDS: Hydrochlorothiazide TAB* 25 MG PO SCH (08:47)
[2016-10-30] MEDS: Budesonide NEB* 0.5 MG/2 ML NEB.SOLN INH SCH (09:04)
--- NOTE | 2016-10-30 09:25 | PN ---
Subjective Date of Service: 10/30/16 Interval History: Patient seen and examined at bedside. Pt denies fever, chills, shortness of breath, chest discomfort, N/V/D. Pt states that she continues to have mucous and is using the [place]auer to suction. Pt has been tolerating thickened liquids, she reports being able to tell when she has her liquids too thin. Pt doesn't want to go to a trach facility and wants to go home with her daughter but understands that she will need to go for short period of time. Family History: Unchanged from Admission Social History: Unchanged from Admission Past Medical History: Unchanged from Admission Objective Active Medications: Albuterol (Ventolin 2.5 Mg/3 Ml Neb.Zoe*) 2.5 mg INH Q4H PRN Reason: WHEEZING Amlodipine Besylate (Norvasc Tab*) 10 mg PO DAILY [facility] Aspirin (Aspirin Ec Low Dose*) 81 mg PO QAM [facility] Baclofen (Lioresal Tab*) 10 mg PO Q8HR [facility] Budesonide (Pulmicort Neb*) 0.5 mg INH RT.BID [facility] Clonazepam (Klonopin Tab(*)) 0.5 mg PO Q6HR [facility] Ferrous Sulfate (Ferrous Sulfate Tab*) 325 mg PO BID [facility] Fluoxetine HCl (Prozac Cap*) 40 mg PO QAM [facility] Gabapentin (Neurontin Cap(*)) 300 mg PO BID [facility] Heparin Sodium (Porcine) (Heparin Vial(*)) 5,000 units SUBCUT Q8HR [facility] Heparin Sodium (Porcine) (Heparin Flush Picc/Ml/Cvc(*)) 1 ml FLUSH 0600,1800 [facility] Reason: Protocol Hydrochlorothiazide (Hydrodiuril Tab*) 12.5 mg PO DAILY [facility] Morphine Sulfate (Morphine Inj (Syringe)*) 4 mg IV Q4H PRN Reason: PAIN Oxycodone/Acetaminophen (Percocet 5/325 Tab*) 2 tab PO Q4H PRN Reason: PAIN Polyethylene Glycol/Electrolytes (Miralax*) 17 gm PO DAILY [facility] Prednisone (Deltasone Tab*) 20 mg PO DAILY [facility] Ropinirole HCl (Requip Tab*) 0.5 mg PO BEDTIME [facility] Theophylline (Aayush Dur*) 300 mg PO DAILY [facility] Vital Signs 10/29/16 10/29/16 10/29/16 10:48 12:46 13:18 Temperature 97.9 F Pulse Rate 58 Respiratory 18 18 18 Rate Blood Pressure 162/55 (mmHg) O2 Sat by Pulse 93 Oximetry 10/29/16 10/29/16 10/29/16 15:18 15:40 16:07 Temperature 97.9 F Pulse Rate 59 Respiratory 18 18 Rate Blood Pressure 118/90 (mmHg) O2 Sat by Pulse 95 96 Oximetry 10/29/16 10/29/16 10/29/16 17:37 19:37 19:44 Temperature 98.1 F Pulse Rate 54 Respiratory 20 16 14 Rate Blood Pressure 143/57 (mmHg) O2 Sat by Pulse 99 Oximetry 10/29/16 10/29/16 10/29/16 20:00 22:36 22:37 Temperature Pulse Rate 60 Respiratory 16 16 16 Rate Blood Pressure (mmHg) O2 Sat by Pulse 98 Oximetry 10/29/16 10/29/16 10/29/16 23:08 23:39 23:41 Temperature 97.2 F Pulse Rate 51 Respiratory 16 16 18 Rate Blood Pressure 149/59 (mmHg) O2 Sat by Pulse 98 Oximetry 10/30/16 10/30/16 10/30/16 03:25 05:01 05:04 Temperature 97.6 F Pulse Rate 45 Respiratory 14 20 20 Rate Blood Pressure 134/58 (mmHg) O2 Sat by Pulse 98 Oximetry 10/30/16 10/30/16 10/30/16 07:01 07:04 08:11 Temperature 97.4 F Pulse Rate 54 Respiratory 20 20 16 Rate Blood Pressure 155/68 (mmHg) O2 Sat by Pulse 94 Oximetry Oxygen Devices in Use Now: - - Trach collar with humidfied oxygen Appearance: NAD, sitting up on the side of the bed Eyes: No Scleral Icterus Ears/Nose/Mouth/Throat: NL Teeth, Lips, Gums, Mucous Membranes Moist Neck: NL Appearance and Movements; NL JVP, Trachea Midline Respiratory: Symmetrical Chest Expansion and Respiratory Effort, Clear to Auscultation Cardiovascular: NL Sounds; No Murmurs; No JVD, RRR Abdominal: NL Sounds; No Tenderness; No Distention Extremities: No Edema Skin: No Rash or Ulcers Neurological: Alert and Oriented x 3, NL Muscle Strength and Tone Lines/Tubes/Other Access: Clean, Dry and Intact Tracheostomy - site benign, Clean, Dry and Intact Peripheral IV - site benign Nutrition: Taking PO's Result Diagrams: 10/30/16 08:10 10/30/16 08:10 Additional Lab and Data: Microbiology and Other Data: Microbiology 10/24/16 16:22 Transfusion Reaction Culture - Preliminary Blood Bag Culture Under Incubation Transfusion Reaction Gram Stain - Final 10/24/16 12:15 Gram Stain - Final Sputum Trach 10/24/16 11:25 Nasal Screen MRSA (PCR)([facility]) - Final Nasal Mrsa Negative Assess/Plan/Problems-Billing Assessment: Ms. 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 Also holds a PMH of being treated for recent bronchitis/pneumonia multiple times this winter, COPD, long-term tobacco abuse recently quitting at time trach was placed, and HTN. - Patient Problems (1) Hypoxia Code(s): R09.02 - HYPOXEMIA SNOMED Code(s): 232446580 Comment: - Suspect secondary to large mucus plug and recurrent acute Bronchitis. Hypoxia resolved. HCAP r/o. Suspect pulmonary edema is chronic. Afebrile, no leukocytosis. Clinically improving daily. - ENT, Dr. Corado evaluated the patient 10/24 and reports from his standpoint everything looks good - no noted edema or mucus noted on video-scope. - Appreciate Employment Attorney consult - suspects recurrence tracheo-bronchitis with increasing respiratory secretions, lower suspicion for HCAP. 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 - Patient was not being compliant with recommended swallow eval with thickened liquids at home. Education given to patient and daughter on the importance of following recommended guidelines from speech therapy. As well, possible over- use of passey-reinaldo valve - recommending using finger occlusion for now. - Continue humidified air to help thin secretions - Pt being more involved in trach care and has had a lot of improvement but continues to need help with deep suctioning. (3) Elevated troponin I level Code(s): R74.8 - ABNORMAL LEVELS OF OTHER SERUM ENZYMES SNOMED Code(s): 213621887 Comment: - Suspect demand ischemia - no noted ischemic EKG changes. - Echo 10/24 showing normal LVEF 55-60%, mod-severe pulm HTN (4) COPD (chronic obstructive pulmonary disease) Code(s): J44.9 - CHRONIC OBSTRUCTIVE PULMONARY DISEASE, UNSPECIFIED SNOMED Code(s): 52560936 Comment: - Continue nebs and humidified O2 to help keep secretions thin. (5) ARF (acute renal failure) Comment: - Resolved with IVFs. suspect a combination of lisinopril, lasix, poor po intake leading to hypovolemia. - Strict I+O's (6) Bradycardia Code(s): R00.1 - BRADYCARDIA, UNSPECIFIED SNOMED Code(s): 20574904 Comment: - DC metoprolol - even with decreased dose HR 50s. (7) Anemia Code(s): D64.9 - ANEMIA, UNSPECIFIED SNOMED Code(s): 893155889 Comment: - Asymptomatic - Microcytic anemia - iron deficiency - 1 units PRBCs transfused 10/24 - HH stable - Continue ferrous sulfate (8) HTN (hypertension) Code(s): I10 - ESSENTIAL (PRIMARY) HYPERTENSION SNOMED Code(s): 63747043 Comment: - Improving. She was taken off her lasix and mariela on admission due to NAOMI. - Continue to hold home mariela/lasix - Continue norvasc and HCTZ - Pt reports she takes lasix for HTN and "almost had CHF". She has been doing well w/o lasix. (9) Anxiety Code(s): F41.9 - ANXIETY DISORDER, UNSPECIFIED SNOMED Code(s): 73644748 Comment: - Continue prozac and prn clonazepam. (10) Chronic pain Status: Chronic Code(s): G89.29 - OTHER CHRONIC PAIN SNOMED Code(s): 83342567 Comment: - Continue home dose oxycodone (11) DVT prophylaxis Code(s): ZKK5262 - SNOMED Code(s): 406461558 Comment: - SQ heparin (12) Full code status Code(s): Z78.9 - OTHER SPECIFIED HEALTH STATUS SNOMED Code(s): 821787716 Status and Disposition: Inpatient. Plan for discharge to subacute rehab facility that manages trachs, facility has an RT 24/hrs a day today.
[2016-10-30 10:31] LABS: Hematocrit 30 % (35-47); Hemoglobin 9.4 g/dl (12.0-16.0); Mean Corpuscular HGB Conc 31 g/dl (31-36); Mean Corpuscular Hemoglobin 25 pg (27-31); Mean Corpuscular Volume 79 fL (80-97); Mean Platelet Volume 8 um3 (7.4-10.4); Red Blood Count 3.78 10^6/ul (4.0-5.4); Red Cell Distribution Width 19 % (10.5-15)
[2016-10-30 10:53] LABS: BUN/Creatinine Ratio 21.2 (8-20); EGFR Non-African American 52.9 (>60); Potassium 3.9 mmol/L (3.5-5.0)
--- NOTE | 2016-10-30 12:26 | DS ---
DISCHARGE SUMMARY: DATE OF ADMISSION: 10/23/2016 DATE OF DISCHARGE: 10/30/2016 ATTENDING PHYSICIAN: Douglas Garrido MD *(dictated by Glenna Parsons NP) PRIMARY CARE PHYSICIAN: Dr. Latesha Hillman PRIMARY DIAGNOSIS: 1. Hypoxia secondary to mucus plug. 2. Elevated troponin secondary to demand ischemia. 3. Acute kidney injury. 4. Bradycardia. 5. Anemia. 6. Hypertension. SECONDARY DIAGNOSES: 1. Chronic obstructive pulmonary disease. 2. Chronic pain. 3. Anxiety. STUDIES WHILE IN THE HOSPITAL: 1. Chest x-ray on 10/23/16. Radiologist impression: Interstitial congestive findings have largely resolved. The cardiac silhouette remains enlarged. There is probably a small left-sided pleural effusion. 2. Chest x-ray on 10/24/16. Radiologist impression: Lines and tubes as described. Cardiomegaly. Pulmonary edema. Small left pleural effusion. 3. Transthoracic echocardiogram on 10/24/16. Carpet Floor Layer Apprentice conclusion: This study is technically limited. Moderate concentric left ventricular hypertrophy is observed. Global left ventricular wall motion and contractility are within normal limits. The estimated ejection fraction is 55% to 60%. Abnormal left ventricular diastolic function observed. The left ventricular global systolic function is normal. All valves appear grossly normal with good function. Mild tricuspid insufficiency. There is evidence of moderate to severe pulmonary hypertension; 57 mmHg. No prior echo to compare. DISCHARGE MEDICATIONS: Teresita Medications: 1. Ferrous sulfate 325 mg oral twice daily. 2. Hydrochlorothiazide 12.5 mg oral daily. 3. MiraLax 17 grams oral daily. 4. Amlodipine 10 mg oral daily. 5. Pulmicort nebulizer 0.5 mg/2 mL 0.5 mg inhalation twice daily. Continued Home Medications: 1. Fluoxetine 40 mg oral every morning. 2. Albuterol 2.5 mg/3 mL 0.83% nebulizer 2.5 mg inhalation 4x daily as needed for wheezing. 3. Theophylline 300 mg oral daily. 4. Spiriva 1 capsule inhalation daily. 5. Albuterol HFA 2 puffs inhalation every 4 hours as needed for shortness of breath or wheeze. 6. Aspirin 81 mg oral daily. 7. Baclofen 10 mg oral every 6 hours as needed for back spasm. 8. Neurontin 300 mg oral twice daily. 9. Protonix 40 mg oral every morning. 10. Requip 0.5 mg oral daily at bedtime. 11. Clonazepam 0.5 mg oral every 6 hours as needed for anxiety. 12. Percocet 10/325 one capsule oral every 4 as needed for pain. 13. Lovastatin 20 mg oral every evening. Discontinued Medications: 1. Lopressor. 2. Furosemide. 3. Lisinopril. 4. Breo Ellipta. HISTORY OF PRESENT ILLNESS/HOSPITAL COURSE: Ms. Doherty is a 66-year-old female with past medical history significant for head and neck carcinoma, COPD, hypertension and anxiety who was recently discharged from the hospital on after being treated with severe airway edema with a tracheostomy placement. After the patient had tracheostomy placed she developed acute respiratory failure and was maintained on a ventilator. She was able to weaned from the ventilator and was discharged to home on 10/23/16. Ms. Doherty had an episode where she suddenly became very short of breath. She was being suctioned by her family but they were unable to improve the shortness of breath. EMS was called and upon arrival of the EMS the patient's oxygen saturations were in the low 80s. She was encouraged to cough and was able to bring up a large amount of sputum. She was placed on a high flow oxygen with return of her saturations to the 90s. The patient was transferred to the emergency room for further evaluation. While in the emergency room the patient's oxygen saturation was 96%. She was seen by respiratory therapy who thoroughly cleaned her tracheostomy and ensured that it was functioning properly. The patient was found to have chronic anemia which was unchanged. She was also found to have an acute kidney injury with a BUN of 40 and creatinine of 2.36. She was found to have an elevated troponin of 0.80 with EKG showing T wave inversions in the V leads. She had an elevated CRP of 115.27. The patient had an ABG showing a normal pH and PCO2 of 54. The hospitalists were asked to evaluate the patient for admission. While in the hospital the patient was felt to have hypoxia secondary to a large mucus plug and recurrent acute bronchitis. The patient's hypoxia resolved. Pneumonia was ruled out. It was suspected the patient's pulmonary edema was chronic. She was afebrile with no leukocytosis and was clinically improving daily. Dr. Corado with ENT evaluated the patient on 10/24/16 and from his standpoint felt that everything was good. There was no new edema or mucus noted on video scope. The patient completed a course of azithromycin and a prednisone taper. It was felt that the patient was not being compliant with her recommended swallow guidelines for thickening liquids at home. The patient and daughter were educated on the importance of maintaining these guidelines. It was also felt that the patient could be overusing her Passy -Plainfield valve and at this time it was recommended the patient use only her finger for occlusion. The patient continued on humidified air to help thin her secretions. The patient's elevated troponin was suspected to be due to demand ischemia. The patient's troponin peaked at 0.08. The patient had an echo showing a normal LVEF of 55% to 60% and moderate to severe pulmonary hypertension. Patient was continued on nebs and humidified O2 to help thinning of her secretions. The patient's acute kidney injury resolved with IV fluid. That was suspected to be a combination of lisinopril, Lasix and poor oral intake leading to hypovolemia. The patient was found to be bradycardic and her metoprolol was discontinued. As far the patient's chronic anemia, she was asymptomatic. She received 1 unit of packed red blood cells. Her H\T\Hs remained stable and she was started ferrous sulfate. Patient's hypertension has been improving. She had been taken off of her NEDRA inhibitor and Lasix due to acute kidney injury at admission. The patient was started on Norvasc and hydrochlorothiazide during her stay. For the patient's chronic pain she was continued on oral oxycodone. The patient continued to do well, but it was felt that she needed to go to a facility with 24 hour respiratory care. Ms. Doherty is stable for discharge to [facility] today. Vital signs are as follows: Temperature 97.4, heart rate 54, respiratory rate 16, O2 sat 94% on 35 % trach collar, blood pressure 155/68. DISCHARGE PLAN: Ms. Doherty will be discharged to [facility] today. ACTIVITY: As tolerated. DIET: She should be on a heart healthy pureed diet with honey thickened liquids. She should be seen by speech therapy for an evaluation and for continued treatment plan. The patient should be followed by respiratory therapy for continued trach care. For now I recommend the patient continue to use her finger for occlusion instead of using her Passy-Plainfield valve as this may lead to drying and thickening of her secretions. She should be continued on trach color to help thin the secretions. As far as the patient's hypertension she should be continued on Norvasc and hydrochlorothiazide. For the patient's chronic anemia she should continue on ferrous sulfate. For the patient's COPD she should be continued on nebs and humidified O2. For the patient's chronic pain she should be continued on her home Percocet. For her anxiety she should be continued on her Prozac and as needed clonazepam. The patient should be seen in followup by either her primary care provider, Dr. Latesha Hillman, or a provider at [facility]. This is a summarized report of a complex medical history and hospital stay. For further details, please see the entire medical record. TIME SPENT: Time for this discharge was 60 minutes, greater than half of that was spent with the patient discussing discharge plans and instructions. CONDITION ON DISCHARGE: Improved. GLENNA JOHNSON NP CC: Dr. Hillman* [id number]/[facility] #: [id number] MTDD
== END 2016-10-30 11:35 | DRG 206 ==
LOC: ED 13:59 → MEDTELE 17:41 → ICU 10-24 09:10 → SSU 10-26 10:52
PROVIDERS: ADMIT Internal Medicine; ATTEND Hospitalist
PROC: 30233N1 Transfusion of Nonautologous Red Blood Cells into Peripheral Vein, Percutaneous Approach (ICD-10-PCS; principal; 2016-10-24)
DX: T17.590A Other foreign object in bronchus causing asphyxiation, initial encounter (principal); N17.9 Acute kidney failure, unspecified; J81.1 Chronic pulmonary edema; J90 Pleural effusion, not elsewhere classified; Z93.0 Tracheostomy status; I95.9 Hypotension, unspecified; I24.8 Other forms of acute ischemic heart disease; I27.2 Other secondary pulmonary hypertension; J38.6 Stenosis of larynx; J44.0 Chronic obstructive pulmonary disease with (acute) lower respiratory infection; I10 Essential (primary) hypertension; R74.8 Abnormal levels of other serum enzymes; G89.29 Other chronic pain; F41.9 Anxiety disorder, unspecified; D63.0 Anemia in neoplastic disease; E86.1 Hypovolemia; C76.0 Malignant neoplasm of head, face and neck; X58.XXXA Exposure to other specified factors, initial encounter; Y92.9 Unspecified place or not applicable; Z79.82 Long term (current) use of aspirin; Z79.899 Other long term (current) drug therapy; F17.210 Nicotine dependence, cigarettes, uncomplicated; R00.1 Bradycardia, unspecified; J20.9 Acute bronchitis, unspecified; Z92.21 Personal history of antineoplastic chemotherapy; Z92.3 Personal history of irradiation; G47.33 Obstructive sleep apnea (adult) (pediatric); Z88.0 Allergy status to penicillin
CPT/HCPCS: 36415; 36600; 71010; 80048; 80053; 82436; 82533; 82550; 82553; 82570; 82607; 82728; 82746; 82803; 83540; 83550; 83605; 83935; 84133; 84134; 84300; 84484; 85025; 85027; 85610; 86078; 86140; 86850; 86900; 86901; 86922; 87070; 87205; 87641; 93005; 93306; 94640; 94760; 94762; A9270-GY; J0456; J0692; J1644; J2270; J2920; J2930; J3370; J7512; P9040

== ENCOUNTER 2017-01-12 11:18 | Day surgery (SDC) | payer MEDICARE ==
[~2017-01-12 11:18] MED LIST changes: +Buffered Lidocaine 0.9% SYRIN* 5 ML/SYR SYRINGE INTRADERM ONE; -Buffered Lidocaine 1% SYRIN* 3 ML/SYR SYRINGE INTRADERM ONE; -Dexamethasone TAB* 4 MG ONE; -Dexamethasone TAB* 4 MG PO ONE; -Gabapentin CAP(*) 300 MG ONE; -Gabapentin CAP(*) 300 MG PO ONE; -Morphine INJ* 2 MG/ML 1 ML SYRINGE IV PRN; +NS 0.9% 1000 ML* 1,000 ML IV SCH; -PROCHLORPERAZINE INJ 5 MG/ML 2 ML VIAL IV PRN; -oxyCODONE/Acetamin 5/325 MG* TAB PO PRN
[2017-01-12] MEDS ORDERED: Buffered Lidocaine 0.9% SYRIN* 5 ML/SYR SYRINGE ONE (11:21)
[2017-01-12] MEDS ORDERED: Oxymetazoline 0.05% NASAL SPR* 15 ML BTL ONE (12:00)
[2017-01-12] MEDS ORDERED: Lidocaine 4% TOPICAL* 50 ML TOP.SOLN ONE (12:00)
[2017-01-12] MEDS ORDERED: KETAMINE HCL* 50 MG/ML 10 ML VIAL ONE (12:07)
[2017-01-12] MEDS ORDERED: Midazolam* 1 MG/ML 5 ML VIAL (5 MG) ONE (12:07)
[2017-01-12] MEDS ORDERED: Lidocaine 2% JELLY* 6 ML JELLY TOPICAL ONE (12:32)
[2017-01-12] MEDS ORDERED: Tetracaine 1%* 2 ML AMP ONE (13:00)
[2017-01-12] MEDS ORDERED: Midazolam* 1 MG/ML 2 ML VIAL (2 MG) ONE ×2 (13:17→13:33)
[2017-01-12] MEDS ORDERED: hydrALAZINE IV* 20 MG/ML VIAL ONE (13:31)
[2017-01-12 16:03] VITALS: BP 143/58
--- NOTE | 2017-01-13 04:53 | OP ---
DATE OF OPERATION: 01/12/17 - [facility] DATE OF : 48 SURGEON: Paulo Barr MD ANESTHESIOLOGIST: Haroon Doshi MD ANESTHESIA: Local with IV sedation. PRE-OP DIAGNOSIS: Status post radiation for laryngeal carcinoma with significant amount of laryngeal edema causing airway obstruction. POST-OP DIAGNOSIS: Status post radiation for laryngeal carcinoma with significant amount of laryngeal edema causing airway obstruction. OPERATIVE PROCEDURE: Nasal laryngoscopy with KTP laser ablation of laryngeal edema. COMPLICATIONS: None. DISPOSITION: Good. SPECIMEN: None. BLOOD LOSS: None. DESCRIPTION OF PROCEDURE: The patient has a history of needing a tracheostomy because of the amount of swelling in her larynx following radiation therapy. My hope is by doing some laser therapy that I am able to reduce some of the edema to give her an airway so the tracheostomy tube eventually can come out. In same day, she was anesthetized with Afrin and 4% lidocaine and taken to the operating room, where she was left in a sitting position. Her tracheostomy tube was replaced with a laser-safe tube and the flexible laryngoscope was used during the procedure. This was the one with the working channel for the laser fibers threaded through her left nostril to visualize the larynx. Her primary problem was along the right aryepiglottic fold, where there was edematous tissue that her supraglottis. She did have some arytenoid edema as well, but the vocal cords looked really quite good. She was further anesthetized by squirting 4% lidocaine and 1% tetracaine through the working channel to spill it into the larynx and she was kept with some IV sedation. I ultimately used the KTP laser at a setting of 10 to try to vaporize this area of edema along the aryepiglottic fold. I definitely got blanching and got through submucosa, but it did not contract the way I was hoping it would. I did multiple lasers diffusely around this area in an attempt to treat the whole region. I could not go up higher on my laser setting because it was causing too much pain and without general anesthesia, I did not think she would tolerate it more. Once I achieved my goal, we ended the procedure. The patient tolerated the procedure well, no complications, transferred to recovery room in stable condition after I replaced the laser tube with a new 6 DCF and #6 Shiley tracheostomy tube. [id number] #: [id number] MTDD
== END 2017-01-12 14:52 | disposition home or self-care (01) ==
LOC: OR 11:18
PROVIDERS: ATTEND Otolaryngology
DX: J38.4 Edema of larynx (principal); Z85.21 Personal history of malignant neoplasm of larynx; J44.9 Chronic obstructive pulmonary disease, unspecified; I27.2 Other secondary pulmonary hypertension; G47.33 Obstructive sleep apnea (adult) (pediatric); F17.210 Nicotine dependence, cigarettes, uncomplicated
CPT/HCPCS: A9270-GY; J0360; J2250

== ENCOUNTER 2017-03-21 11:22 | Day surgery (SDC) | payer MEDICARE ==
[~2017-03-21 11:22] MED LIST changes: -Famotidine IV* 10 MG/ML 2 ML (20 mg) ONE; -NS 0.9% 1000 ML* 1,000 ML IV SCH; -fentaNYL* 50 MCG/ML 2 ML VIAL (100 MCG VIAL) IV PRN
[2017-03-21] MEDS ORDERED: Propofol* 10 MG/ML 20 ML BTL IV PUSH ONE (11:46)
[2017-03-21] MEDS ORDERED: Lidocaine 2% PF * 5 ML VIAL ONE (11:46)
[2017-03-21] MEDS ORDERED: fentaNYL* 50 MCG/ML 2 ML VIAL (100 MCG VIAL) ONE (11:46)
[2017-03-21] MEDS ORDERED: Dexamethasone IV* 4 MG/ML 1 ML (4 MG) ONE (11:46)
[2017-03-21] MEDS ORDERED: KETAMINE HCL* 50 MG/ML 10 ML VIAL ONE (11:46)
[2017-03-21] MEDS ORDERED: Ondansetron INJ* 2 MG/ML VIAL ONE (11:46)
[2017-03-21] MEDS ORDERED: Midazolam* 1 MG/ML 5 ML VIAL (5 MG) ONE (11:47)
[2017-03-21] MEDS ORDERED: Famotidine IV* 10 MG/ML 2 ML (20 mg) ONE (11:48)
[2017-03-21] MEDS ORDERED: Buffered Lidocaine 0.9% SYRIN* 5 ML/SYR SYRINGE ONE (11:48)
[2017-03-21] MEDS ORDERED: Oxymetazoline 0.05% NASAL SPR* 15 ML BTL ONE (12:56)
[2017-03-21] MEDS ORDERED: Lidocaine 4% TOPICAL* 50 ML TOP.SOLN ONE (12:56)
[2017-03-21] MEDS ORDERED: Lidocaine 4% TOPICAL* 50 ML TOP.SOLN TOPICAL ONE (13:00)
[2017-03-21] MEDS ORDERED: Phenylephrine 0.5% NASAL* BTL ONE (13:00)
[2017-03-21] MEDS ORDERED: Tetracaine 1%* 2 ML AMP ONE (13:00)
[2017-03-21] MEDS ORDERED: Lidocaine 2% JELLY* 6 ML JELLY TOPICAL ONE (13:24)
[2017-03-21] MEDS ORDERED: Midazolam* 1 MG/ML 2 ML VIAL (2 MG) ONE (13:33)
[2017-03-21 14:32] VITALS: BP 125/55
[2017-03-21] MEDS ORDERED: Ondansetron INJ* 2 MG/ML VIAL IV PRN (14:54)
[2017-03-21] MEDS ORDERED: oxyCODONE/Acetamin 5/325 MG* TAB PO PRN (14:54)
[2017-03-21] MEDS ORDERED: fentaNYL* 50 MCG/ML 2 ML VIAL (100 MCG VIAL) IV PRN (14:54)
--- NOTE | 2017-03-22 05:10 | OP ---
DATE OF OPERATION: 03/21/17 - [facility] DATE OF : 48 SURGEON: Paulo Barr MD. ANESTHESIOLOGIST: Chacorta Terrell MD ANESTHESIA: Local with MAC anesthesia. PRE-OP DIAGNOSIS: Laryngeal edema following radiation therapy. POST-OP DIAGNOSIS: Laryngeal edema following radiation therapy. OPERATIVE PROCEDURE: Nasal laryngoscope with KHP laser treatment of with laryngeal edema. COMPLICATIONS: None. DISPOSITION: Good. SPECIMENS: None. ESTIMATED BLOOD LOSS: None. DESCRIPTION OF PROCEDURE: The patient was taken to the operating room, placed in a sitting position on the operating room table. Initially, her tracheostomy tube was removed and replaced with a laser safe tube. Her nose had been tropicalized with lidocaine and oxymetazoline nasal spray and I sprayed her throat with the same solution. The nasal laryngoscope was inserted through her nose to visualize the larynx. The previous area on her epiglottis that I treated looked quite good and the area to treat this time was some edema over her arytenoids posteriorly. 3% lidocaine followed by 1% tetracaine were squirted through the working channel to anesthetize the larynx further and then KHP laser fiber was threaded through the working channel. On the setting of 8, I ablated the area over the arytenoid with the edema blocking her airway to where I thought I had achieved my desired goal. At the end of the case, the laser safe tube was removed and replaced with a new #6 DCFN tracheostomy tube. The patient tolerated this well. There were no complications, transferred to the recovery room in stable condition. [id number]/[facility] #: [id number] MTDD
== END 2017-03-21 15:26 | disposition home or self-care (01) ==
LOC: OR 11:22
PROVIDERS: ATTEND Otolaryngology
DX: J38.4 Edema of larynx (principal); F32.9 Major depressive disorder, single episode, unspecified; J44.9 Chronic obstructive pulmonary disease, unspecified; E78.00 Pure hypercholesterolemia, unspecified; I10 Essential (primary) hypertension; G47.30 Sleep apnea, unspecified; M19.90 Unspecified osteoarthritis, unspecified site; Z85.21 Personal history of malignant neoplasm of larynx
CPT/HCPCS: A9270-GY; J1100; J2250; J2405; J2704; J3010

== ENCOUNTER 2017-04-27 09:40 | Day surgery (SDC) | payer MEDICARE ==
[~2017-04-27 09:40] MED LIST changes: +Dexamethasone IV* 4 MG/ML 1 ML (4 MG) IV SLOW PU ONE; -Famotidine IV* 10 MG/ML 2 ML (20 mg) IV ONE
[2017-04-27] MEDS ORDERED: Dexamethasone IV* 4 MG/ML 1 ML (4 MG) ONE (09:53)
[2017-04-27] MEDS ORDERED: Buffered Lidocaine 0.9% SYRIN* 5 ML/SYR SYRINGE ONE (09:53)
[2017-04-27] MEDS ORDERED: fentaNYL* 50 MCG/ML 2 ML VIAL (100 MCG VIAL) ONE ×2 (11:31→14:09)
[2017-04-27] MEDS ORDERED: Midazolam* 1 MG/ML 2 ML VIAL (2 MG) ONE (11:31)
[2017-04-27] MEDS ORDERED: EPINEPHrine AMP 1 MG/ML ONE (11:56)
[2017-04-27] MEDS ORDERED: Oxymetazoline 0.05% NASAL SPR* 15 ML BTL ONE (12:06)
[2017-04-27] MEDS ORDERED: Lidocaine 4% TOPICAL* 50 ML TOP.SOLN ONE (12:06)
[2017-04-27] MEDS ORDERED: Methylene Blue 0.5 %* 50 MG/10 ML AMP IV ONE (12:07)
[2017-04-27] MEDS ORDERED: Ondansetron INJ* 2 MG/ML VIAL IV PRN (13:18)
[2017-04-27] MEDS ORDERED: fentaNYL* 50 MCG/ML 2 ML VIAL (100 MCG VIAL) IV PRN (13:18)
[2017-04-27] MEDS ORDERED: HYDROcodone/ACETAMIN 5-325 MG* 1 TAB ONE (14:08)
[2017-04-27 14:36] VITALS: BP 157/52
--- NOTE | 2017-04-28 03:16 | OP ---
OPERATIVE REPORT: DATE OF OPERATION: 04/27/17 - [facility] DATE OF : 48 SURGEON: Paulo Barr MD ANESTHESIOLOGIST: Cam Soto MD ANESTHESIA: General. PRE-OP DIAGNOSIS: Status post radiation therapy for laryngeal cancer with significant amount of edema causing airway obstruction requiring long-term tracheostomy. POST-OP DIAGNOSIS: Status post radiation therapy for laryngeal cancer with significant amount of edema causing airway obstruction requiring long-term tracheostomy. OPERATIVE PROCEDURE: Microlaryngoscopy with KTP laser ablation of edema of her larynx in this case over her arytenoids. COMPLICATIONS: None. DISPOSITION: Good. SPECIMEN: None. BLOOD LOSS: None. DESCRIPTION OF PROCEDURE: The patient was taken to the operating room and placed in the supine position on the operating table. Her tracheostomy tube was removed and replaced with a laser safe tube. Laser safety protocol was followed with low oxygen and wet towels over her eyes and all of her exposed skin. She was turned and draped for the surgery. The laryngoscope was inserted and bent from the suspension system visualizing the area of her surgery. Cottonoids impregnated with oxymetazoline and 4% lidocaine were placed and using the KTP laser at a setting at 10, I ablated the edematous mucosa over the arytenoids and it shrunk right down to where I wanted it. Little bit of therapy was done bilaterally. This was done using the microscope for visualization. Cottonoids were placed again, removed. The laryngoscope was released and removed. The patient tolerated the procedure well, no complications, transferred to the recovery room in stable condition. [id number]/[facility] #: [id number] MTDD
== END 2017-04-27 14:54 | disposition home or self-care (01) ==
LOC: OR 09:40
PROVIDERS: ATTEND Otolaryngology
DX: J38.4 Edema of larynx (principal); Z85.21 Personal history of malignant neoplasm of larynx; Z92.3 Personal history of irradiation; Z93.0 Tracheostomy status; Z79.82 Long term (current) use of aspirin; Z88.0 Allergy status to penicillin; J44.9 Chronic obstructive pulmonary disease, unspecified; I10 Essential (primary) hypertension; Z87.891 Personal history of nicotine dependence; F41.9 Anxiety disorder, unspecified; F32.9 Major depressive disorder, single episode, unspecified; E78.5 Hyperlipidemia, unspecified
CPT/HCPCS: A9270-GY; J0171; J1100; J2250; J3010

== ENCOUNTER 2017-05-10 10:21 | Emergency (ER) | payer MEDICARE ==
[2017-05-10 10:51] VITALS: BP 129/34
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
== END 2017-05-10 11:36 ==
LOC: UCEAST 10:21
DX: R06.01 Orthopnea (principal); J44.9 Chronic obstructive pulmonary disease, unspecified; Z87.891 Personal history of nicotine dependence; Z85.12 Personal history of malignant neoplasm of trachea; Z93.0 Tracheostomy status
CPT/HCPCS: 93005; 99212; G0463

== ENCOUNTER 2018-03-25 19:43 | Emergency (ER) | payer MEDICARE, OTHER ==
[2018-03-25 19:57] VITALS: BP 152/64
[2018-03-25] MEDS ORDERED: predniSONE TAB* 20 MG PO ONE (20:06)
[2018-03-25] MEDS ORDERED: Albuterol/Ipratropium NEB.SOL* Albuterol 2.5 MG/Ipratropium 0.5 MG 3 ML INH ONE (20:06)
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
[2018-03-25] MEDS ORDERED: DOXYcycline CAP(*) 100 MG PO ONE (21:27)
--- NOTE | 2018-03-26 13:37 | RAD ---
Indication: Cough, COPD. 2 views of the chest including dual energy PA views demonstrates hyperinflated lung gasca. There is some scarring in the right base. There may be some infiltrate in the retrocardiac region. Cardiomegaly is noted. When compared to previous exam of October 05, 2017 findings the right base are unchanged. IMPRESSION: Cardiomegaly. Right basilar scarring. Left lower lobe airspace disease. R0
--- NOTE | 2018-03-27 11:48 | UC ---
- Progress Note Progress Note: Patient Name: SHONA OAKLEY Medical Record#: [id number] Ordering Physician: Micki Garrido MD Acct.#: [id number] : 1950 Age: 68 Sex: F Location: [facility] Exam Date: 03/25/182006 ADM Status: DEP ER Order Information: CHEST PA & LAT 2 VWS Accession Number: [id number] CPT: 89313 Indication: Cough, COPD. 2 views of the chest including dual energy PA views demonstrates hyperinflated lung gasca. There is some scarring in the right base. There may be some infiltrate in the retrocardiac region. Cardiomegaly is noted. When compared to previous exam of October 05, 2017 findings the right base are unchanged. IMPRESSION: Cardiomegaly. Right basilar scarring. Left lower lobe airspace disease. R0 <Electronically signed by Honey Beltran MD in [place]> 03/26/18 1333 Dictated By: Honey Beltran MD Dictated Date/Time: 03/26/18 1333 Transcribed Date/Time: 03/26/18 0804 Copy to: CC:Latesha Hillman MD; Micki Garrido MD [facility] - [facility] - [facility] [address] [place] [address] ph ([phone]) ph ([phone]) ph ([phone]) This report is only to be considered final once signed by the Provider(s) as displayed in the "<Electronically Signed by >" field (s). Absence of a signature indicates the report is in a draft status and still needs to be finalized. In the event this document was created by someone other than the signing Provider, the individual initiating the document will be listed in the "Entered by:" or "Dictated by:" gasca. 1 of 1 Discharge - Sign-Out/Discharge Documenting (check all that apply): Post-Discharge Follow Up All imaging exams completed and their final reports reviewed: Yes - Discharge Plan Condition: Fair Disposition: AGAINST MEDICAL ADVICE Prescriptions: Doxycycline Monohydrate [Mondoxyne Nl] 100 mg PO BID #20 cap predniSONE TAB* [Deltasone 20 MG TAB*] 20 mg PO DAILY #17 tab Patient Education Materials: COPD (Chronic Obstructive Pulmonary Disease) (ED) , Community Acquired Pneumonia (ED), Against Medical Advice (ED) Referrals: Latesha Hillman MD [Primary Care Provider] - Additional Instructions: The doctor that evaluated you today strongly recommended equally emergency department for further evaluation treatment. The doctor discussed with you she was concerned about her chest pain as well as your breathing. The doctor discussed there was concern for pneumonia on your chest x-ray. Your insistent that you go home despite these recommendations. The doctor discussed with you that your leaving against medical advice. Risks of leaving AGAINST MEDICAL ADVICE include but are not limited to worsening breathing, hypoxia low oxygen levels, undiagnosed heart attack, heart rhythm problems, permit disability, and . Even acknowledge that you understand this and are going home. It is strongly recommended to call 911 or go to emergency department immediately if you have any worsening in your condition. The doctor that evaluated today is prescribing antibiotics as well as prednisone as discussed. It is recommended to use her DuoNeb every 4 hours. Call your doctor tomorrow to schedule recheck this week. Again is recommended you should go to the emergency department but you have elected to go home against medical clinic manager instead. - Billing Disposition and Condition Condition: FAIR Disposition: Against Medical Advice
== END 2018-03-25 21:55 | disposition left against medical advice (07) ==
LOC: UCEAST 19:43
DX: J18.9 Pneumonia, unspecified organism (principal); J44.9 Chronic obstructive pulmonary disease, unspecified; Z88.0 Allergy status to penicillin; Z87.891 Personal history of nicotine dependence
CPT/HCPCS: 71046; 93005; 99213; A9270-GY; G0463; J7512

== ENCOUNTER 2018-11-16 16:33 | Emergency (ER) | payer MEDICARE ==
--- OUTSIDE RECORDS SUMMARY | 2018-11-16 17:24 | XMS REPORT | Continuity of Care Document ---
:1950 External Reference #:[id number] Author Name Sheryl Castillo Care Team Providers Name Role Phone Latesha Hillman MD Primary Care Physician Unavailable Payers Date Identification Numbers Payment Provider Subscriber Policy Number: [id number] [employer] Abbie Doherty PayID: [id number] [address] [address] Attn: [place] [address] Expires: 2018 Policy Number: [id number] Medicaid Abbie Doherty Group Name: 1 1 [address] PayID: [id number] [place] [address] Expires: 2018 Policy Number: [id number] [facility] [employer] Abbie Doherty PayID: [id number] [address] [address] [place] [address] Effective: 2016 Policy Number: [id number] [facility] Care Abbie Doherty Expires: 2018 Group Number: [id number] PayID: [id number] [address] Advance Directives Description No Information Available Problems Description No Information Family History Date Family Member(s) Observation Comments Father due to at young age () - 63 Father Arthritis Father Diabetes Mother Hypertension Mother due to Thoracic Aneurysm () Mother Aortic Aneurysm Siblings 3 3 brothers Social History Type Date Description Comments Sex Unknown Marital Status Lives With Alone Occupation Retired Tobacco Use Start: Unknown Light tobacco smoker Started smoking at (9 or fewer age 11 cigarettes/day) ETOH Use Occasionally consumes alcohol Tobacco Use Start: Unknown Light tobacco smoker a few per week (10 or fewer cigarettes/day) Recreational Drug Use Denies Drug Use Tobacco Use Reviewed: 07/15/18 A few per week during illness Tobacco Use Start: Unknown Patient is not smoking as of 10-31-18 Smoking Status Reviewed: 10/31/18 A few per week during illness Exercise Type/Frequency Exercises rarely Allergies, Adverse Reactions, Alerts Active Allergies Reaction Severity Comments Date Penicillin 10/31/2018 Medications Active Medications SIG Qnty Indications Ordering Date Provider Doxycycline Hyclate one tablet twice 14caps Gina Diasali, 09/19/2018 daily for 7 days. 100mg Capsules Prednisone 1 by mouth every 30tabs Gina Kirk, 07/19/2018 10mg Tablets day Varenicline Tartrate 1MG tab twice Unknown daily start after starter pack is done Prednisone take 2first day Unknown 20mg Tablets then 1 for 3 day Glipizide/Metformin 1 tab by mouth Unknown Hydrochloride every day 2.5-250mg Tablets Clotrimazole use 2 times a day Unknown 1% Cream Azithromycin 1 by mouth three Cannariato, 500mg times per week Latesha Soria, Tablets Proair HFA inhale two puffs 8.500gm Gina Yelena, 108(90Base) by mouth every 4 MD mcg/Act Aerosol hours as needed for wheezing and with exercise if needed Incruse Ellipta inhale one puff Unknown by mouth every 62.5mcg/Inh Aerosol day Ferrous Sulfate 1 by mouth twice Unknown a day 325(65Fe) mg Tablets Potassium Chloride 1 tab qd Unknown Loratadine 1 by mouth every Unknown 10mg Tablets day prn Aspirin 81 Low Dose 1 by mouth every Unknown day Tab Gabapentin Take One Capsule Unknown 300mg By Mouth 3 Times Capsules A Day Symbicort Inhale Two Puffs Unknown By Mouth Twice A 160-4.5mcg/Act Day Aerosol Rosuvastatin Calcium Take One Tablet Unknown By Mouth Every 20mg Tablets Day Amlodipine Besylate Take One Tablet Unknown By Mouth Every 10mg Tablets Day Torsemide Take One Tablet Unknown 10mg Tablets By Mouth two times per day Baclofen Take One Tablet Unknown 10mg Tablets By Mouth Three Times A Day Buspirone HCL Take One Tablet Unknown 5mg By Mouth Twice A Tablets Day as Needed Albuterol Sulfate Use [address] Unknown Nebulizer Every 4 (2.5mg/3ML) 0.083% Hours as Needed Nebulizer For Wheezing Pantoprazole Sodium Take One Tablet Unknown By Mouth Every 40mg Tablets DR Day Fluoxetine HCL Take One Capsule Unknown 40mg By Mouth Every Capsules Day Ropinirole HCL 1 tab qhs Cannariato, 2mg Latesha Soria, Tablets Oxycodone-Acetaminoph 1 tab bid prn Cannariato, en Latesha Soria, 10-325mg Tablets History Medications Azithromycin 1 tablet by 7tabs Gina Kirk, 07/23/2018 - 500mg mouth daily for MD 09/17/2018 Tablets 7 days Prednisone take 3 tabs po 14tabs R06.02 Gina Kirk, 07/12/2018 - 20mg Tablets for the first MD 07/19/2018 day, 2 tabs po the second day and 1 tab by mouth for 9 days Prednisone 40mg daily for 180tabs J18.1 Gina Kirk, 05/06/2018 - 10mg Tablets 1 week, 30mg 07/11/2018 daily for 1 week, 20mg daily for 1 week, 10 mg daily for 1 week Spiriva Respimat Inhale 2 Puffs Unknown - By Mouth Daily 07/11/2018 2.5mcg/Act Aerosol Azithromycin 1 by mouth one Unknown - 500mg time per day 07/23/2018 Tablets (for past 6 days 07/15/18) Immunizations Description No Information Available Vital Signs Date Vital Result Comment 10/31/2018 12:43pm Height 63 inches 5'3" Weight 230.12 lb Heart Rate 66 /min BP Systolic Sitting 120 mmHg Rue large cuff BP Diastolic Sitting 60 mmHg Rue large cuff Respiratory Rate 12 /min O2 % BldC Oximetry 98 % 3LPM BMI (Body Mass Index) 40.8 kg/m2 07/15/2018 12:39pm Height 63 inches 5'3" Weight 218.25 lb Heart Rate 68 /min BP Systolic Sitting 124 mmHg Rue large cuff BP Diastolic Sitting 58 mmHg Rue large cuff Respiratory Rate 22 /min O2 % BldC Oximetry 98 % On O2 at 2 via nasal cannula, Poc BMI (Body Mass Index) 38.7 kg/m2 05/06/2018 9:56am Height 63 inches 5'3" Weight 221.00 lb Heart Rate 88 /min BP Systolic Sitting 108 mmHg BP Diastolic Sitting 68 mmHg Respiratory Rate 14 /min O2 % BldC Oximetry 93 % on 3L BMI (Body Mass Index) 39.1 kg/m2 Neck Circumference in inches 15.5 Results Description No Information Available Procedures Date Code Description Status 05/20/2018 52780 Diffusing Capacity Completed 05/20/2018 26580 Plethysmography Determination Lung Volumes & Per Airway Completed Resist 05/20/2018 11393 Pulmonary Stress Testing, Inc Measurement Heart Rate, Completed Oximetry 05/20/2018 89951 Pulmonary Function><Bronchodil Completed 10/24/2016 19757 ECHO Transthorasic Realtime 2D W Doppler & Color Flow Hosp Completed 10/24/2016 99655 EKG, Interpretation Only Completed Encounters Type Date Location Provider Dx Diagnosis Office Visit 10/31/2018 Pul[facility]ology [facility] Gina Maty Kirk.Davis Chronic obstructive 12:45p Sleep Services Of pulmonary disease, Accounting Analyst unspecified J18.1 Lobar pneumonia, unspecified organism G47.33 Obstructive sleep apnea (adult) (pediatric) Office Visit 07/15/2018 1:00p Pulmonology Lucio Rutledge.[facility] Of MD Yelena obstructive Accounting Analyst pulmonary disease, unspecified R09.02 Hypoxemia Office Visit 05/06/2018 10:00a Pulmonology Lucio Burns.1 Lobar pneumonia, Sleep Services Of MD Yelena unspecified Accounting Analyst organism J44.9 Chronic obstructive pulmonary disease, unspecified Z86.711 Personal history of pulmonary embolism F17.213 Nicotine dependence, cigarettes, with withdrawal R09.02 Hypoxemia G47.33 Obstructive sleep apnea (adult) (pediatric) Office Visit 10/07/2017 10:30a Katy Villegas.1 Lobar pneumonia, Assoc,pc N.P. unspecified Hospitalists organism J44.9 Chronic obstructive pulmonary disease, unspecified Z86.711 Personal history of pulmonary embolism Office Visit 10/06/2017 10:29a [facility] Dayanara Dez, J18.1 Lobar pneumonia, Assoc,pc N.P. unspecified Hospitalists organism J44.9 Chronic obstructive pulmonary disease, unspecified Z86.711 Personal history of pulmonary embolism Office Visit 10/05/2017 10:27a [facility] Dayanara Garces, J18.1 Lobar pneumonia, Assoc,pc N.P. unspecified Hospitalists organism J44.9 Chronic obstructive pulmonary disease, unspecified Z86.711 Personal history of pulmonary embolism Office Visit 10/30/2016 4:14p [facility] [address] R09.02 Hypoxemia Assoc,pc Parsons, HEAVY TRUCK MECHANIC Hospitalists N17.9 Acute kidney failure, unspecified I95.9 Hypotension, unspecified J40 Bronchitis, not specified as acute or chronic Office Visit 10/29/2016 4:14p [facility], R09.02 Hypoxemia Assoc,pc HEAVY TRUCK MECHANIC Hospitalists N17.9 Acute kidney failure, unspecified I95.9 Hypotension, unspecified J40 Bronchitis, not specified as acute or chronic Office Visit 10/28/2016 4:13p [facility], R09.02 Hypoxemia Assoc,pc HE[employer] TR[employer] MECHANIC Hospitalists N17.9 Acute kidney failure, unspecified I95.9 Hypotension, unspecified J40 Bronchitis, not specified as acute or chronic Office Visit 10/27/2016 4:12p [facility], R09.02 Hypoxemia Assoc,pc HEAVY TRUCK MECHANIC Hospitalists N17.9 Acute kidney failure, unspecified I95.9 Hypotension, unspecified J40 Bronchitis, not specified as acute or chronic Office Visit 10/26/2016 4:11p [facility], R09.02 Hypoxemia Assoc,pc HE[employer] MECHANIC Hospitalists N17.9 Acute kidney failure, unspecified I95.9 Hypotension, unspecified R74.8 Abnormal levels of other serum enzymes Office Visit 10/25/2016 3:03p [facility] Juan Severino, R09.02 Hypoxemia Assoc,pc Hospitalists MD N17.9 Acute kidney failure, unspecified I95.9 Hypotension, unspecified J40 Bronchitis, not specified as acute or chronic [facility] R09.02 Hypoxemia Assoc,pc [employer] MECH[employer]IC Hospitalists N17.9 Acute kidney failure, unspecified I95.9 Hypotension, unspecified R74.8 Abnormal levels of other serum enzymes Office Visit 10/24/2016 3:02p [facility] Juan J J40 Bronchitis, not Assoc,rossy Severino MD specified as acute Hospitalists or chronic I95.9 Hypotension, unspecified R09.02 Hypoxemia N17.9 Acute kidney failure, unspecified Office Visit 10/24/2016 4:10p [facility] Misty Reynolds, R09.02 Hypoxemia Assoc,pc HE[employer] MECH[employer]IC Hospitalists N17.9 Acute kidney failure, unspecified I95.9 Hypotension, unspecified R74.8 Abnormal levels of other serum enzymes Office Visit 10/23/2016 4:09p [facility] Dayanara Garces, R09.02 Hypoxemia Assoc,pc Hospitalists N.P. N17.9 Acute kidney failure, unspecified I95.9 Hypotension, unspecified R74.8 Abnormal levels of other serum enzymes Office Visit 10/19/2016 [facility] J95.821 Acute 1:56p Assoc,rossy Jaramillo D.O. postprocedural Hospitalists respiratory failure J38.4 Edema of larynx J43.8 Other emphysema F41.9 Anxiety disorder, unspecified Office Visit 10/18/2016 [facility] J95.821 Acute 1:56p Assoc,rossy Jaramillo D.O. postprocedural Hospitalists respiratory failure J38.4 Edema of larynx J43.8 Other emphysema F41.9 Anxiety disorder, unspecified [facility] J[facility]21 Acute 1:55p Assoc,rossy Jaramillo D.O. postprocedural Hospitalists respiratory failure J38.4 Edema of larynx J43.8 Other emphysema F41.9 Anxiety disorder, unspecified Office Visit 10/16/2016 [facility] German M. J95.821 Acute 1:55p Assoc,Noah Santiago.O. postprocedural Hospitalists respiratory failure J38.4 Edema of larynx J43.8 Other emphysema F41.9 Anxiety disorder, unspecified Office Visit 10/15/2016 [facility] M. J95.821 Acute 1:54p Assoc,rossy Ballesteros D.O. postprocedural Hospitalists respiratory failure J38.4 Edema of larynx J43.8 Other emphysema F41.9 Anxiety disorder, unspecified Office Visit 10/14/2016 [facility] YossiBryan J95.821 Acute 1:53p Assoc,Noah Santiago.O. postprocedural Hospitalists respiratory failure J38.4 Edema of larynx J43.8 Other emphysema F41.9 Anxiety disorder, unspecified Office Visit 10/13/2016 [facility] YossiBryan J95.851 Ventilator 1:53p Assoc,rossy Ballesteros D.O. associated Hospitalists pneumonia J38.4 Edema of larynx J43.8 Other emphysema F41.9 Anxiety disorder, unspecified Plan of Treatment Future Appointment(s):03/03/2019 10:45 am - Gina Kirk MD at [facility]10/31/2018 - Gina Kirk MDJ44.9 Chronic obstructive pulmonary disease, unspecifiedFollow up:4 pisabwU33.1 Lobar pneumonia, unspecified qvjjautiQ86.33 Obstructive sleep apnea (adult) (pediatric )
[2018-11-16 17:36] VITALS: BP 127/56
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
[2018-11-16] MEDS ORDERED: predniSONE TAB* 20 MG PO ONE (18:26)
== END 2018-11-16 18:50 | disposition left against medical advice (07) ==
LOC: UCEAST 16:33
DX: J44.1 Chronic obstructive pulmonary disease with (acute) exacerbation (principal); Z99.81 Dependence on supplemental oxygen; R60.9 Edema, unspecified; M25.512 Pain in left shoulder; M25.511 Pain in right shoulder; I10 Essential (primary) hypertension; Z85.850 Personal history of malignant neoplasm of thyroid; Z88.0 Allergy status to penicillin; Z87.891 Personal history of nicotine dependence
CPT/HCPCS: 71046; 93005; 99212; G0463; J7512

== ENCOUNTER 2019-01-22 10:02 | Day surgery (SDC) | payer MEDICARE ==
[~2019-01-22 10:02] MED LIST changes: +Acetaminophen TAB* 325 MG PO PRN; -Buffered Lidocaine 0.9% SYRIN* 5 ML/SYR SYRINGE INTRADERM ONE; +Buffered Lidocaine 1% SYRIN* 1 ML/SYRINGE INTRADERM ONE; -Dexamethasone IV* 4 MG/ML 1 ML (4 MG) IV SLOW PU ONE
[2019-01-22] MEDS ORDERED: Lidocaine 2% PF * 5 ML VIAL ONE (12:42)
[2019-01-22] MEDS ORDERED: Propofol* 10 MG/ML 20 ML BTL ONE (12:42)
[2019-01-22 13:04] VITALS: BP 144/47
--- NOTE | 2019-01-22 13:18 | OP ---
OPERATIVE NOTE: DATE OF OPERATION: 01/22/19 DATE OF : 48 SURGEON: Gregorio Mckeon M.D. PREOPERATIVE DIAGNOSIS: Cataract, right eye. POSTOPERATIVE DIAGNOSIS: Cataract, right eye. OPERATIVE PROCEDURE: Extracapsular cataract extraction with intraocular lens implant, right eye. PROCEDURE: The patient was brought to the operating room after being given 1/2% Alcaine with epineph rine drops in the preoperative area. The eye was prepped and draped in the usual sterile fashion. S terile drape and eyelid speculum were placed. Again, topical 1/2% Alcaine with epinephrine was given . A paracentesis incision was made at the 9 o'clock position with the No.75 blade. Clear cornea inc ision 2.2 x 2.2-mm was created at the 12 o'clock position starting at the anterior limbus using the 2 .2-mm keratome. The anterior chamber was irrigated with 0.4 mL of 1% non-preservative intracameral l idocaine and filled with DisCoVisc. A capsulorrhexis was completed using the cystotome and the Utrat a forceps. Hydrodissection was performed with balanced salt solution. The lens nucleus was removed w ith the Phacoemulsification handpiece without incident. Cortex was removed with the irrigation-aspir ation handpiece. The capsular bag was re-inflated using DisCoVisc and an SN60WF 20.5 implant was ins erted with the shooter. The irrigation-aspiration handpiece was used to remove all residual DisCoVis c. The eye was refilled with balanced salt solution and the wound checked and found to be watertight . Topical Maxitrol drops were given. [id number]/[facility] #: [id number]
[2019-01-22] MEDS ORDERED: Lidocaine 1% MPF ** 5 ML VIAL ONE (14:22)
[2019-01-22] MEDS ORDERED: Proparacaine 0.5% OPHTH.SOL* 15 ML BTL ONE (14:22)
[2019-01-22] MEDS ORDERED: Neomycin/Polymy/Dex OPTH.SUSP* MAXITROL 0.1% 5 ML ONE (14:22)
[2019-01-22] MEDS ORDERED: Cyclopentolate 1% OPTH.SOL* 2 ML BTL ONE (14:22)
[2019-01-22] MEDS ORDERED: Ketorolac 0.5% OPHTH (NF) 0.5 % 5 ML BTL ONE (14:22)
[2019-01-22] MEDS ORDERED: Phenylephrine OPHTH SOL 2.5%* 2 ML ONE (14:22)
[2019-01-22] MEDS ORDERED: Povidone Iodine 5% OPTH* 30 ML BTL ONE (14:22)
[2019-01-22] MEDS ORDERED: Lidocaine 2% w/ EPI 1:200,000* 20 ML VIAL ONE (14:22)
[2019-01-22] MEDS ORDERED: acetaZOLAMIDE TAB* 250 MG ONE (14:22)
== END 2019-01-22 13:17 | disposition home or self-care (01) ==
LOC: OREAST 10:02
PROVIDERS: ATTEND Specialist
DX: H25.811 Combined forms of age-related cataract, right eye (principal); E11.9 Type 2 diabetes mellitus without complications; Z79.84 Long term (current) use of oral hypoglycemic drugs; J44.9 Chronic obstructive pulmonary disease, unspecified; I10 Essential (primary) hypertension; E78.00 Pure hypercholesterolemia, unspecified; K21.9 Gastro-esophageal reflux disease without esophagitis; K44.9 Diaphragmatic hernia without obstruction or gangrene; Z85.89 Personal history of malignant neoplasm of other organs and systems; Z87.891 Personal history of nicotine dependence
CPT/HCPCS: A9270-GY; J2704; V2632

== ENCOUNTER 2019-03-06 17:41 | Emergency (ER) | payer MEDICARE ==
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
[2019-03-06 20:16] LABS: Hematocrit 22 % (35-47); Mean Corpuscular HGB Conc 33 g/dL (31-36); Mean Corpuscular Hemoglobin 28 pg (27-31); Mean Corpuscular Volume 87 fL (80-97); Mean Platelet Volume 8.2 fL (7.4-10.4); Platelet Count 90 10^3/uL (150-450); Red Blood Count 2.49 10^6 /uL (3.70-4.87); Red Cell Distribution Width 15 % (10-15); White Blood Count 0.4 10^3/uL (3.5-10.8)
[2019-03-06 20:22] LABS: Activated Partial Thrombo Time 31.7 seconds (26.0-38.0); INR 1.12 (0.82-1.09)
[2019-03-06 20:25] LABS: Albumin 3.3 g/dL (3.2-5.2); Albumin/Globulin Ratio 1.1 (1-3); BUN/Creatinine Ratio 28.4 (8-20); Calcium 8.9 mg/dL (8.6-10.3); EGFR African American 70.4 (>60); EGFR Non-African American 58.2 (>60); Globulin 2.9 g/dL (2-4); Potassium 3.4 mmol/L (3.5-5.0); Total Bilirubin 0.2 mg/dL (0.2-1.0); Total Protein 6.2 g/dL (6.4-8.9)
[2019-03-06 20:27] LABS: ABS Neutrophils 0.1 10^3/ul (1.5-7.7)
[2019-03-06 20:33] LABS: ABS Lymphocytes 0.3 10^3/ul (1.0-4.8); ABS Monocytes 0.1 10^3/ul (0-0.8); Eosinophil % 2.3 %; Lymphocyte % 63.7 %; Nucleated Red Blood Cells % 0.5
[2019-03-06] MEDS ORDERED: oxyCODONE TAB* 5 MG TAB PO ONE (21:04)
[2019-03-06] MEDS ORDERED: Morphine TAB Extended Release (*) 15 MG TAB.ER PO ONE (21:04)
[2019-03-07 03:01] VITALS: BP 121/65
== END 2019-03-07 03:00 | disposition home or self-care (01) ==
LOC: ED 17:41
DX: D64.9 Anemia, unspecified (principal); I50.9 Heart failure, unspecified; E11.9 Type 2 diabetes mellitus without complications; I11.0 Hypertensive heart disease with heart failure; F41.9 Anxiety disorder, unspecified; F32.9 Major depressive disorder, single episode, unspecified; J44.9 Chronic obstructive pulmonary disease, unspecified; K21.9 Gastro-esophageal reflux disease without esophagitis; F17.210 Nicotine dependence, cigarettes, uncomplicated; Z85.89 Personal history of malignant neoplasm of other organs and systems; Z88.0 Allergy status to penicillin; Z79.82 Long term (current) use of aspirin; Z79.84 Long term (current) use of oral hypoglycemic drugs; Z79.891 Long term (current) use of opiate analgesic; Z79.899 Other long term (current) drug therapy; Z99.81 Dependence on supplemental oxygen
CPT/HCPCS: 36415; 80053; 85025; 85060; 85610; 85730; 86850; 86900; 86901; 86922; 99284; A9270-GY; P9040

== ENCOUNTER 2019-03-10 11:58 | Inpatient (IN) | payer MEDICARE ==
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
[2019-03-10 13:09] LABS: Hematocrit 21 % (35-47); Hemoglobin 6.9 g/dL (12.0-16.0); Mean Corpuscular HGB Conc 32 g/dL (31-36); Mean Corpuscular Hemoglobin 28 pg (27-31); Mean Corpuscular Volume 86 fL (80-97); Mean Platelet Volume 7.9 fL (7.4-10.4); Platelet Count 125 10^3/uL (150-450); Red Blood Count 2.47 10^6 /uL (3.70-4.87); Red Cell Distribution Width 15 % (10-15)
[2019-03-10 13:14] LABS: ABS Lymphocytes 0.4 10^3/ul (1.0-4.8); ABS Monocytes 0.3 10^3/ul (0-0.8); Eosinophil % 0.8 %; Lymphocyte % 35.2 %; Nucleated Red Blood Cells % 1.2
[2019-03-10 13:16] LABS: ABS Neutrophils 0.4 10^3/ul (1.5-7.7)
[2019-03-10 13:22] LABS: INR 1.15 (0.82-1.09)
[2019-03-10 13:27] LABS: Albumin 3.3 g/dL (3.2-5.2); Albumin/Globulin Ratio 1.1 (1-3); BUN/Creatinine Ratio 17.6 (8-20); C Reactive Protein 118.28 mg/L (<8.01); Calcium 8.6 mg/dL (8.6-10.3); EGFR African American 93.9 (>60); EGFR Non-African American 77.6 (>60); Potassium 3.7 mmol/L (3.5-5.0); Total Bilirubin 0.2 mg/dL (0.2-1.0); Total Protein 6.3 g/dL (6.4-8.9)
[2019-03-10 13:29] LABS: Troponin I 0.01 ng/mL (<0.04)
[2019-03-10] MEDS ORDERED: Cetirizine* 10 MG TAB PO PRN (15:47)
[2019-03-10] MEDS ORDERED: Baclofen TAB* 10 MG PO PRN (15:47)
--- NOTE | 2019-03-10 15:51 | ED ---
Progress - Progress Note Progress Note: US IV Ultrasound Guided Peripheral IV Procedure Note Indication: Unable to obtain adequate IV access Skin Prep:Chlorhexidine Sterile Prep (allowed to dry for thirty seconds) Sterility: Gloves Insertion: Appropriate time out was taken. Ultrasound guidance was utilized for vein selection, to document selected vessel patency and real time ultrasound visualization of vascular needle entry into venous lumen. Insertion Site left AC Type of catheter: 20 gauge catheter Blood return:yes Saline lock: yes Post Procedure: Estimated blood loss: minimal Course/Dx - Diagnoses Provider Diagnoses: Hypoxia - Provider Notifications Time Discussed With Above Provider: 14:16 Instructed by Provider To: Other - Dr. Lauren, oncology, will come see patient in ED. Discharge ED - Sign-Out/Discharge Documenting (check all that apply): Patient Departure - Discharge Plan Condition: Stable Disposition: ADMITTED TO [facility] Referrals: Latesha Hillman MD [Primary Care Provider] - - Billing Disposition and Condition Condition: STABLE Disposition: Admitted to [facility]
[2019-03-10] MEDS ORDERED: Morphine TAB Extended Release (*) 15 MG TAB.ER PO SCH (16:00)
[2019-03-10] MEDS ORDERED: Iodixanol* (CONTRAST) 320 MG/ML 100 ML SDV IV ONE (16:12)
[2019-03-10] MEDS: oxyCODONE TAB* 5 MG TAB PO PRN ×2 (16:14→21:37)
[2019-03-10] MEDS: Cefepime 1 GM in Dextrose(*) 1 GM/50 ML BAG IV SCH (17:29)
[2019-03-10] MEDS: Enoxaparin(*) 40 MG/0.4 ML SYR SUBCUT SCH (17:32)
[2019-03-10] MEDS: glipiZIDE TAB* 5 MG PO SCH (17:32)
[2019-03-10] MEDS: Atorvastatin* 40 MG TAB PO SCH (17:32)
[2019-03-10] MEDS: Albuterol 2.5 MG/3 ML NEB.SOL* (0.083%) INH PRN (19:46)
[2019-03-10] MEDS: Mometasone/Formoter 200/5 MDI INH SCH (19:56)
[2019-03-10] MEDS ORDERED: GLIPIZIDE PO SCH (21:00)
[2019-03-10] MEDS ORDERED: METFORMIN PO SCH (21:00)
[2019-03-10] MEDS ORDERED: Dextrose 50% VIAL 50 ml IV PUSH PRN (21:26)
[2019-03-10] MEDS: Ferrous Sulfate TAB* 325 MG PO SCH (21:38)
[2019-03-10] MEDS: rOPINIRole TAB* 1 MG PO SCH (21:38)
[2019-03-10] MEDS: busPIRone TAB* 5 MG PO SCH (21:38)
[2019-03-10] MEDS: Gabapentin CAP(*) 300 MG PO SCH (21:38)
[2019-03-10] MEDS: Torsemide TAB 10 MG PO SCH (21:38)
[2019-03-10] MEDS: Insulin LISPRO* 1 UNITS UNIT SUBCUT SCH (21:55)
[2019-03-11] MEDS: Cefepime 1 GM in Dextrose(*) 1 GM/50 ML BAG IV SCH ×2 (03:55→16:21)
[2019-03-11] MEDS: oxyCODONE TAB* 5 MG TAB PO PRN ×2 (03:55→19:42)
[2019-03-11 06:32] LABS: Hematocrit 24 % (35-47); Hemoglobin 7.8 g/dL (12.0-16.0); Mean Corpuscular HGB Conc 33 g/dL (31-36); Mean Corpuscular Hemoglobin 28 pg (27-31); Mean Corpuscular Volume 86 fL (80-97); Mean Platelet Volume 8.5 fL (7.4-10.4); Platelet Count 165 10^3/uL (150-450); Red Blood Count 2.75 10^6 /uL (3.70-4.87); Red Cell Distribution Width 14 % (10-15); White Blood Count 1.3 10^3/uL (3.5-10.8)
[2019-03-11 06:48] LABS: BUN/Creatinine Ratio 21.4 (8-20); Calcium 8.6 mg/dL (8.6-10.3); EGFR African American 100.1 (>60); EGFR Non-African American 82.7 (>60); Potassium 4.2 mmol/L (3.5-5.0)
[2019-03-11 06:55] LABS: ABS Lymphocytes 0.3 10^3/ul (1.0-4.8); ABS Monocytes 0.3 10^3/ul (0-0.8); ABS Neutrophils 0.7 10^3/ul (1.5-7.7); Lymphocyte % 22.5 %; Nucleated Red Blood Cells % 1.7
[2019-03-11] MEDS: Albuterol 2.5 MG/3 ML NEB.SOL* (0.083%) INH PRN ×2 (08:52→19:54)
[2019-03-11] MEDS: Mometasone/Formoter 200/5 MDI INH SCH ×2 (08:52→19:57)
[2019-03-11] MEDS: Insulin LISPRO* 1 UNITS UNIT SUBCUT SCH ×4 (09:12→21:55)
[2019-03-11] MEDS: Lidocaine PATCH 5%* 1 PATCH TRANSDERM SCH (09:13)
[2019-03-11] MEDS: busPIRone TAB* 5 MG PO SCH ×2 (09:13→19:43)
[2019-03-11] MEDS: FLUoxetine CAP* 20 MG PO SCH (09:13)
[2019-03-11] MEDS: Aspirin EC TAB* 81 MG TAB.EC PO SCH (09:14)
[2019-03-11] MEDS: Gabapentin CAP(*) 300 MG PO SCH ×3 (09:14→21:55)
[2019-03-11] MEDS: Ferrous Sulfate TAB* 325 MG PO SCH ×2 (09:14→21:55)
[2019-03-11] MEDS: Morphine TAB Extended Release (*) 15 MG TAB.ER PO SCH ×2 (09:15→21:54)
[2019-03-11] MEDS: glipiZIDE TAB* 5 MG PO SCH ×2 (09:15→16:37)
[2019-03-11] MEDS: amLODIPine TAB* 5 MG PO SCH (09:15)
[2019-03-11] MEDS: Torsemide TAB 10 MG PO SCH ×2 (09:16→21:54)
[2019-03-11] MEDS: Pantoprazole TAB * 40 MG TAB PO SCH (09:16)
--- NOTE | 2019-03-11 09:33 | HP ---
CC: Dr. Latesha Hillman, [facility]; Dr. Garcia; Dr. Lepe ; Dr. Avendaño* ADMISSION HISTORY AND PHYSICAL: DATE OF ADMISSION: 03/10/19 REASONS FOR ADMISSION: Pancytopenia, recent diagnosis of small-cell lung cancer , hypoxia/dyspnea. HISTORY OF PRESENT ILLNESS: Abbie Doherty is a 69-year-old female with underlying medical history of type 2 diabetes, congestive heart failure, depression, prior head and neck cancer with prior trach which has been reversed , sleep apnea, and hypertension. She presented to [facility] and was admitted from 02/10/19 to 02/27/19. At that time, she had developed bilateral hand numbness of several weeks' duration along with a cough. She had been treated with doxycycline and prednisone for a suspected pneumonia. The patient reports that she has had frequent pneumonias including aspiration pneumonias and has been on longstanding azithromycin prophylactically 3 times per week for well over a year. She reports that she had much less in the way of pneumonias with this. In the weeks preceding that hospitalization, she had severe lower back pain, which had been progressively worse and associated with this and developed right leg numbness. She was seen in consultation during that admission by Dr. Araujo of neurology and Dr. Pineda of neurosurgery. Imaging was obtained of the entire neuraxis. There was no evidence of abnormalities on the MRI of the brain. C-spine MRI showed cervical spondylopathy at multiple levels causing stenosis at several levels without nerve root impingement or any metastatic disease. Thoracic and lumbar MRIs showed a spinal mass at T9-10, which did not cause nerve root impingement, and the lumbar spine showed again multilevel lumbar spondylopathy. The thoracic spine mass at T9- 10 was old when compared to prior studies. In summary, there was no evidence of any metastatic disease causing neurologic symptoms and it was felt by Neurology and Neurosurgery that the patient did not need urgent surgical decompression for her stenosis, but might need some in the future. During that admission, she was found incidentally on CT scan of the chest done as a CTA on 02/10/19 to have a 1.8 cm nodule on the superior segment of the left lower lobe. In addition, mediastinal lymphadenopathy was noted in the right paratracheal region. The patient underwent a bronchoscopy and EBUS procedure, which revealed small-cell lung cancer in the mediastinal lymph nodes. She received a course of chemotherapy with carboplatin and etoposide from 02/24/19 through 02/26/19 prior to discharge at 02/27/19. Her performance status during that hospitalization was most limited by the paresthesias in her hand with severity of COPD requiring supplemental oxygen and by the weakness and numbness in her legs. Upon discharge on 02/27/19, the patient reports and so does her niece, who has been staying with her, that she was doing reasonably well. She had increased fatigue, but that she was home on oxygen at 3 L with good O2 saturations. She had a cough which was productive of clear mucus. She, however, worsened last week from 03/04/19 to 03/06/19 with increasing fatigue. O2 saturations became worse and she became more confused. She was seen in the office by Dr. Garcia on 03/06/19. At that time, she complained of worsening O2 saturations, persistent numbness in the hands, low back pain now being as bad. However, given the worsening O2 saturations and fatigue, a decision was made to send her to the emergency room with the thought that she might need admission. She was found to be more anemic and received 1 unit of transfusion of packed red blood cells. There was some left arm edema at that time, which has subsequently improved with a consideration for left upper extremity ultrasound, but this was not performed. It was mentioned in that note that given how poor prognosis was from the cancer and how high a risk she was from any therapy that she might want to consider not continuing to treat her cancer. She does not remember that conversation, although she does report that her healthcare proxy form has been filled out for her daughter to be her healthcare proxy since the last hospitalization and that she is considering having a MOLST form filled out, although she reports still wanting the full resuscitative measures at this time. Following being discharged from the emergency room after 1 year of packed red blood cells, she returned to home with her niece staying with her 24 hours a day. She reports that she has gotten increasingly fatigued over that period of time, her O2 saturations have worsened such that even on 4 L she was unable to maintain 90%. She has had somewhat worsening of a cough. She has been much more fatigued and presents to the emergency room with these symptoms. She denies any chest pain or palpitations. She denies any worsening neurologic complaints. PAST MEDICAL HISTORY: 1. Head and neck cancer, treated with radiation therapy approximately 5 years ago while in [place] requiring subsequent trach, which she reports was only reversed about 1 year ago. She reports that she has had problems with aspiration pneumonias on a frequent basis and until the last 6 to 12 months was using a thicket in order to lessen this likelihood with any liquids. 2. Frequent pneumonias/aspiration pneumonias, has been on Zithromax 3 times per week for at least a year with a lessening of the number of pneumonias that she has had, although she is currently off the Zithromax. 3. Urinary tract infection during the last hospitalization and just completed a course of ciprofloxacin. The urinary tract infection was with pseudomonas. Weinstein catheter was placed, but then removed. 4. Pneumonia during that hospitalization with the following bacteria present: Group C Strep along with klebsiella and corynebacterium on bronchial washings, treated with a 10-day course of cefepime and subsequently sent home on cefdinir , but reports no longer taking this medication. 5. Type 2 diabetes, under reasonable control on medications. 6. History of depression. 7. History of anxiety. 8. History of tracheostomy as discussed above. 9. History of sleep apnea. 10. History of hypertension. 11. History of hyperlipidemia. 12. History of diverticulitis with need for a colostomy, which has never been reversed and is still present. 13. Large abdominal ventral hernia. 14. Disk disease in multiple locations throughout the cervical, thoracic and lumbar spine. 15. Restless leg syndrome. 16. GERD. 17. Reported history of pulmonary embolism, although she states that the pulmonary embolism was 5 to 6 years ago and by the time she left the hospital, she was not sent home on any anticoagulation, just aspirin. 18. Longstanding anemia, long preceding the hospitalization in February. She has had significant anemia with hemoglobins of less than 10. Hemoglobins were worse during that admission and are worse again now. PAST SURGICAL HISTORY: 1. Status post cataract surgery. 2. Status post tracheostomy. 3. Status post colostomy. 4. Status post rotator cuff surgery. MEDICATIONS: 1. Albuterol 4 times per day. 2. Baclofen 10 mg t.i.d. p.r.n. 3. BuSpar 5 mg t.i.d. 4. Ferrous sulfate 325 mg b.i.d. 5. Fluoxetine 40 mg daily. 6. Gabapentin 300 mg t.i.d. 7. Klor-Con 10 mEq b.i.d. 8. Lipitor or Crestor, unclear. 9. MS Contin 15 mg in the evening and sometimes takes a second dose in the morning. 10. Oxycodone 5 mg round the clock q.4 hours p.r.n. for pain. 11. Norvasc 10 mg daily. 12. Pantoprazole 40 mg b.i.d. 13. ReQuip 2 mg at h.s. 14. Torsemide 10 mg b.i.d. 15. Symbicort. 16. Claritin. 17. Aspirin 81 mg daily. 18. Metformin/glipizide 250/2.5 b.i.d. ALLERGIES: To PENICILLIN. FAMILY HISTORY: No family history of malignancy, other than father with leukemia and 2 sisters with lung cancer. Mother with aortic aneurysm. SOCIAL HISTORY: Cigarettes significant in the past, only few cigarettes per day prior to February admission. No significant alcohol or illicit drug use. She is currently single. Her daughter, Argenis, is the surrogate decision maker and she reports that she now is her healthcare proxy. Her niece, who comes with her in the emergency room, has been living with her recently, but will need to go back to [place] shortly. REVIEW OF SYSTEMS: Denies any headaches. Reports continued numbness in the locations discussed above. Denies any diplopia or blurred vision. No chest pain. Shortness of breath as discussed above. Neck pain is better, but still needs round- the-clock narcotics, but now under reasonable control. Appetite is fair. Unsure if she has lost any weight. Has ongoing anxiety and depression , which she reports responds well to BuSpar and Prozac. Left hand swelling last week which has now resolved. Review of systems, otherwise, negative except as discussed above. PHYSICAL EXAMINATION GENERAL: A 69-year-old female in mild respiratory distress. She has O2 on at 10 to 15 L per mask, with O2 saturations now in the mid 90s, having been much lower on her 3 to 4 L that she left the hospital on. VITAL SIGNS: Blood pressure 135/68, pulse 83, O2 saturation 91% on 10 L. Earlier in the day, blood pressure was lower at approximately 100, systolic, and O2 saturations on arrival in the emergency room were in the mid 80s. HEENT: PERRL. EOMI. No erythema or exudates. No scleral icterus. No palpable cervical, supraclavicular or axillary adenopathy. There was significant scarring in the neck region from her previous radiation therapy. LUNGS: Scattered rhonchi. No rales or wheezes. HEART: Regular rate and rhythm without murmurs, rubs, or gallops. ABDOMEN: Large ventral hernia. Ostomy in the left lower quadrant. Normoactive bowel sounds. No masses or organomegaly. EXTREMITIES: No edema. No clubbing. NEUROLOGIC EXAM: The patient is alert and oriented x3. Thought process is mildly confused. Moves all extremities. DIAGNOSTIC STUDIES/LAB DATA: Laboratory Studies: CBC: White count 1000, H and H 21/6.9, platelet count 125,000. Hemoglobin prior to 1 unit of packed red blood cells 3 days ago was 7.0 and previously had been running in the 8 range during her previous hospitalization and in similar range, 8 to 9, since early 2017. ANC of 400, having been 100 three days ago. Chemistry Studies: Sodium 137, potassium 3.7, bicarb 39, chloride 93, BUN 13, creatinine 0.74, glucose 97. LFTs are within normal limits. Chest x-ray continues to show infiltrate, but similar to the prior imaging. CTA of the chest has been ordered and results pending upon the patient leaving the emergency room. IMPRESSION: 1. A 69-year-old female with a recent diagnosis of small-cell lung cancer discovered incidentally during recent hospitalization for other reasons. She was treated with the first course of carboplatin and etoposide and currently has extremely low neutrophil count on day 15. Her ANC is actually improving from 3 days ago. She has not had a fever, but still has other symptoms consistent with a pneumonia and has had multiple previous pneumonias in the past including aspiration pneumonias. I am worried that she has pneumonia despite no major changes on her chest x-ray and we will see better in this regard on the CT of the chest, which has been ordered. Given her neutropenia, she has already had blood cultures x2 obtained. CBC will be followed. She has been started empirically on cefepime 1 g b.i.d. until her ANC improves and her potential pneumonia is better treated. During the previous hospitalization, she did have bronchial washings growing out multiple organisms including streptococcus, corynebacterium, and klebsiella. She will be maintained on adequate oxygenation to keep O2 saturations above 88% to 90%, currently on 10 to 15 L per mask. 2. Severe hypoxia. As discussed above, likely related to her underlying chronic obstructive pulmonary disease, likely recurrent pneumonia, and we will need to rule out pulmonary embolism and her pneumonia. 3. Worsening anemia. This has been a chronic problem. She is not known to be guaiac positive in the past, has not been iron deficient during the last admission, but does have significant anemia present for several years' time, which is worse recently and is not microcytic. GI declined doing an urgent GI workup during that admission ( I think appropriately so), but she has been placed on oral iron with the thought of giving her IV iron in the near future. This may help somewhat, but I suspect her anemia is more on bases other than just iron deficiency. 4. Underlying chronic obstructive pulmonary disease. She will be maintained on her inhalers. She will not be restarted on steroids at the present time. She reports that she had been on chronic steroids intermittently for many years , but typically more off than on, and most recently, prior to her last hospitalization, she was on prednisone 10 mg daily for some significant period of time. If her respiratory status has not improved quickly, not only are the inhalers and nebulizers and oxygen appropriate, but it might be worthwhile putting her back on steroids at that time. 5. Hypertension, well controlled. 6. Diabetes mellitus. We will need to check her blood sugars a.c. and h.s. with insulin coverage. Her metformin will be held and she will be maintained on other oral agents given her CAT scan and then metformin resumed at 48 hours. 7. History of sleep apnea. The patient's family will be asked to bring in her CPAP machine. 8. Severe pain and numbness related to cervical and lumbar stenoses. This does not seem to be as much of a problem as it was at the time of her previous admission both on admission and during that hospitalization. She will be maintained on her usual doses of narcotics and of gabapentin. 9. DVT prophylaxis, with Lovenox. She reports a history of prior pulmonary embolism. This story does not quite add up with her reporting that she left the hospital not on anything other than aspirin. 10. Recent urinary tract infection, likely resolved. 11. History of head and neck cancer, status post chemotherapy and radiation therapy and prior tracheostomy, currently inactive. 12. Depression and anxiety, being treated. 13. Obesity. 14. Disposition/healthcare proxy. Her daughter is her healthcare proxy and she reports will be in the hospital to visit her later this afternoon after having been away camping. Her niece has been staying with her recently, but has to go back to [place] next week. It is unclear what she wishes her full code status to be. She initially reports that she was considering signing a MOLST form to be DNR, but then in the next sentence reports that she would obviously want everything done and that she wishes full resuscitative measures. She is somewhat deferring to her daughter when her daughter arrived, but it has been explained to her that she currently is competent and should be able to make her own decisions, although with the input from her daughter. [id number]/CPS #: [id number] FLORENTINO
--- NOTE | 2019-03-11 10:49 | PN ---
Progress Note - Progress Note Date of Service: 03/11/19 SOAP: Subjective: []Seen and examined this AM. Admitted last night with RLL PNA and pancytopenia. C1D16 Carbo/Etoposide today. Feels a little better than yesterday. Still very weak. Concerned about getting her iron. Medications: Albuterol (Ventolin 2.5 Mg/3 Ml Neb.Zoe*) 2.5 mg INH Q4HR PRN PRN Reason: SOB/WHEEZING Last Admin: 03/11/19 08:52 Dose: 2.5 mg Amlodipine Besylate (Norvasc Tab*) 10 mg PO QAM [facility] Last Admin: 03/11/19 09:15 Dose: 10 mg Aspirin (Aspirin Ec Tab*) 81 mg PO DAILY [facility] Last Admin: 03/11/19 09:14 Dose: 81 mg Atorvastatin Calcium (Lipitor*) 40 mg PO QPM [facility] Last Admin: 03/10/19 17:32 Dose: 40 mg Baclofen (Lioresal Tab*) 10 mg PO TID PRN PRN Reason: SPASM Last Admin: 03/10/19 21:37 Dose: 10 mg Buspirone HCl (Buspar Tab*) 5 mg PO BID [facility] Last Admin: 03/11/19 09:13 Dose: 5 mg Cetirizine HCl (Zyrtec*) 10 mg PO DAILY PRN PRN Reason: Allergy Symptoms Dextrose (Dextrose 50% Vial 50 Ml*) 25 ml IV PUSH .FOR FS < 60 - SS PRN PRN Reason: FS < 60 Enoxaparin Sodium (Lovenox(*)) 40 mg SUBCUT Q24H [facility] Last Admin: 03/10/19 17:32 Dose: 40 mg Ferrous Sulfate (Ferrous Sulfate Tab*) 325 mg PO BID [facility] Last Admin: 03/11/19 09:14 Dose: 325 mg Fluoxetine HCl (Prozac Cap*) 40 mg PO QAM [facility] Last Admin: 03/11/19 09:13 Dose: 40 mg Gabapentin (Neurontin Cap(*)) 300 mg PO TID [facility] Last Admin: 03/11/19 09:14 Dose: 300 mg Glipizide (Glucotrol Tab*) 2.5 mg PO BID WITH MEALS [facility] Last Admin: 03/11/19 09:15 Dose: 2.5 mg Cefepime HCl (Maxipime 1 Gm In Dextrose Duplex (*)) 1 gm in 50 mls @ 100 mls/ hr IV Q12H [facility] Last Admin: 03/11/19 03:55 Dose: 100 mls/hr Insulin Human Lispro (Humalog*) 0 units SUBCUT ACHS [facility]; Protocol Last Admin: 03/11/19 09:12 Dose: 3 units Lidocaine (Lidoderm 5% Patch*) 1 patch TRANSDERM DAILY [facility] Last Admin: 03/11/19 09:13 Dose: 1 patch Metformin HCl (Glucophage*) 500 mg PO BID WITH MEALS [facility] Mometasone Furoate/Formoterol Fumar (Dulera 200/5 Mdi*) 2 puff INH BID [facility]; Protocol Last Admin: 03/11/19 08:52 Dose: 2 puff Morphine Sulfate (Ms Contin(*)) 15 mg PO Q12HR [facility] Last Admin: 03/11/19 09:15 Dose: 15 mg Oxycodone HCl (Roxycodone Tab*) 5 mg PO Q4H PRN PRN Reason: PAIN - SEVERE Last Admin: 03/11/19 03:55 Dose: 5 mg Pantoprazole Sodium (Protonix Tab*) 40 mg PO QAM [facility] Last Admin: 03/11/19 09:16 Dose: 40 mg Pharmacy Profile Note (Lidocaine Patch Remove*) 1 note PATCH OFF 2100 [facility] Ropinirole HCl (Requip Tab*) 2 mg PO BEDTIME [facility] Last Admin: 03/10/19 21:38 Dose: 2 mg Torsemide (Torsemide) 10 mg PO BID [facility] Last Admin: 03/11/19 09:16 Dose: 10 mg Objective: [] Vital Signs Temp Pulse Resp BP Pulse Ox 97.2 F 68 19 146/61 97 03/11/19 04:23 03/11/19 08:53 03/11/19 09:15 03/11/19 04:23 03/11/19 08:53 A&O, in no acute distress HRR, S1S2, tele SR with PVCs LS dim. bilat. with poor resp. effort, pt. examined laying down Pursed breathing at times with mild tachypnea +BS, abd. soft, obese, ostomy LLQ benign Laboratory Results - last 24 hr 03/10/19 03/10/19 03/10/19 12:44 12:58 12:58 WBC 1.0 L RBC 2.47 L Hgb 6.9 L Hct 21 L MCV 86 MCH 28 MCHC 32 RDW 15 Plt Count 125 L MPV 7.9 Neut % (Auto) 38.2 Lymph % (Auto) 35.2 [place] % (Auto) 24.9 Eos % (Auto) 0.8 Baso % (Auto) 0.9 Absolute Neuts (auto) 0.4 L* Absolute Lymphs (auto) 0.4 L Absolute Monos (auto) 0.3 Absolute Eos (auto) 0.0 Absolute Basos (auto) 0.0 Absolute Nucleated RBC 0.0 Immature Gran % 6.0 Neutrophils % 32.0 Band Neutrophils % 2.0 Lymphocytes % 41.0 Reactive Lymphs % 1.0 Monocytes % 19.0 Basophils % 1.0 Metamyelocytes % 3.0 H Myelocytes % 1.0 Nucleated RBC % 1.2 Nucleated RBCs/100 WBC 2.0 H Normal RBC Morphology Normal INR (Anticoag Therapy) Sodium 137 Potassium 3.7 Chloride 93 L Carbon Dioxide 39 H Anion Gap 5 BUN 13 Creatinine 0.74 Est GFR ( Amer) 93.9 Est GFR (Non-Af Amer) 77.6 BUN/Creatinine Ratio 17.6 Glucose 97 POC Glucose (mg/dL) Lactic Acid Calcium 8.6 Total Bilirubin 0.20 AST 15 ALT 20 Alkaline Phosphatase 72 Troponin I 0.01 C-Reactive Protein 118.28 H B-Natriuretic Peptide Total Protein 6.3 L Albumin 3.3 Globulin 3.0 Albumin/Globulin Ratio 1.1 Blood Type O Positive Antibody Screen Negative Crossmatch See Detail 03/10/19 03/10/19 03/10/19 12:58 12:58 12:59 WBC RBC Hgb Hct MCV MCH MCHC RDW Plt Count MPV Neut % (Auto) Lymph % (Auto) [place] % (Auto) Eos % (Auto) Baso % (Auto) Absolute Neuts (auto) Absolute Lymphs (auto) Absolute Monos (auto) Absolute Eos (auto) Absolute Basos (auto) Absolute Nucleated RBC Immature Gran % Neutrophils % Band Neutrophils % Lymphocytes % Reactive Lymphs % Monocytes % Basophils % Metamyelocytes % Myelocytes % Nucleated RBC % Nucleated RBCs/100 WBC Normal RBC Morphology INR (Anticoag Therapy) 1.15 H Sodium Potassium Chloride Carbon Dioxide Anion Gap BUN Creatinine Est GFR ( Amer) Est GFR (Non-Af Amer) BUN/Creatinine Ratio Glucose POC Glucose (mg/dL) Lactic Acid 0.5 Calcium Total Bilirubin AST ALT Alkaline Phosphatase Troponin I C-Reactive Protein B-Natriuretic Peptide 53 Total Protein Albumin Globulin Albumin/Globulin Ratio Blood Type Antibody Screen Crossmatch 03/10/19 03/11/19 03/11/19 21:03 06:20 06:20 WBC 1.3 L RBC 2.75 L Hgb 7.8 L Hct 24 L MCV 86 MCH 28 MCHC 33 RDW 14 Plt Count 165 MPV 8.5 Neut % (Auto) 51.2 Lymph % (Auto) 22.5 [place] % (Auto) 25.9 Eos % (Auto) 0.0 Baso % (Auto) 0.4 Absolute Neuts (auto) 0.7 L Absolute Lymphs (auto) 0.3 L Absolute Monos (auto) 0.3 Absolute Eos (auto) 0.0 Absolute Basos (auto) 0.0 Absolute Nucleated RBC 0.0 Immature Gran % 8.0 Neutrophils % 53.0 Band Neutrophils % 1.0 Lymphocytes % 18.0 Reactive Lymphs % 1.0 Monocytes % 20.0 Basophils % Metamyelocytes % 3.0 H Myelocytes % 4.0 H Nucleated RBC % 1.7 Nucleated RBCs/100 WBC 2.0 H Normal RBC Morphology Normal INR (Anticoag Therapy) Sodium 138 Potassium 4.2 Chloride 93 L Carbon Dioxide 43 H* Anion Gap 2 BUN 15 Creatinine 0.70 Est GFR ( Amer) 100.1 Est GFR (Non-Af Amer) 82.7 BUN/Creatinine Ratio 21.4 H Glucose 139 H POC Glucose (mg/dL) 327 H Lactic Acid Calcium 8.6 Total Bilirubin AST ALT Alkaline Phosphatase Troponin I C-Reactive Protein B-Natriuretic Peptide Total Protein Albumin Globulin Albumin/Globulin Ratio Blood Type Antibody Screen Crossmatch Assessment: []Complicated 69 yo female with multiple co-morbidities recently diagnosed with an 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 She has not been febrile with no growth on cultures and fortunately already some clinical improvement per pt. report. Plan: []1. PNA: Cont. broad spectrum abx. due to neutropenia - clinically stable, no roll for steroids today 2. Pancytopenia: expect improvement over next week - anemia stable following 1 unit PRBCs, baseline hmg 8-9, monitor daily counts - cont. neutropenic precautions 3. SCLC: s/p C1, however co-morbidities may ultimately complicate her ability to tolerate tx. - reasonable to consider palliative consult once acute illness improved 4. DVT proph: Lovenox Dispo: requires inpt. care with IV abx. due to neutropenia, niece will still be living here through the next week, unclear if she can manage at home independently
[2019-03-11] MEDS: Enoxaparin(*) 40 MG/0.4 ML SYR SUBCUT SCH (16:21)
[2019-03-11] MEDS: Atorvastatin* 40 MG TAB PO SCH (17:15)
[2019-03-11] MEDS: rOPINIRole TAB* 1 MG PO SCH (21:54)
[2019-03-11] MEDS: Lidocaine Patch REMOVE* 1 NOTE MISC PATCH OFF SCH (21:55)
[2019-03-12] MEDS: oxyCODONE TAB* 5 MG TAB PO PRN ×4 (01:56→21:48)
[2019-03-12] MEDS: Cefepime 1 GM in Dextrose(*) 1 GM/50 ML BAG IV SCH ×2 (04:49→16:41)
[2019-03-12 05:56] LABS: Hematocrit 25 % (35-47); Hemoglobin 8.3 g/dL (12.0-16.0); Mean Corpuscular HGB Conc 33 g/dL (31-36); Mean Corpuscular Hemoglobin 28 pg (27-31); Mean Corpuscular Volume 87 fL (80-97); Mean Platelet Volume 8.5 fL (7.4-10.4); Platelet Count 211 10^3/uL (150-450); Red Blood Count 2.93 10^6 /uL (3.70-4.87); Red Cell Distribution Width 15 % (10-15); White Blood Count 2.3 10^3/uL (3.5-10.8)
[2019-03-12 06:17] LABS: Albumin 3.3 g/dL (3.2-5.2); Albumin/Globulin Ratio 1.1 (1-3); BUN/Creatinine Ratio 20.2 (8-20); Calcium 8.7 mg/dL (8.6-10.3); EGFR African American 81.1 (>60); Potassium 3.5 mmol/L (3.5-5.0); Total Bilirubin 0.2 mg/dL (0.2-1.0); Total Protein 6.3 g/dL (6.4-8.9)
[2019-03-12 06:33] LABS: ABS Lymphocytes 0.5 10^3/ul (1.0-4.8); ABS Monocytes 0.4 10^3/ul (0-0.8); ABS Neutrophils 1.3 10^3/ul (1.5-7.7); Eosinophil % 0.3 %; Lymphocyte % 23.6 %; Nucleated Red Blood Cells % 1.8
[2019-03-12 06:40] LABS: Polychromasia 1+
[2019-03-12] MEDS: Mometasone/Formoter 200/5 MDI INH SCH ×2 (08:29→20:12)
[2019-03-12] MEDS: Albuterol 2.5 MG/3 ML NEB.SOL* (0.083%) INH PRN ×2 (08:32→20:15)
[2019-03-12] MEDS: Insulin LISPRO* 1 UNITS UNIT SUBCUT SCH ×4 (08:32→21:49)
[2019-03-12] MEDS: Morphine TAB Extended Release (*) 15 MG TAB.ER PO SCH ×2 (08:33→21:48)
[2019-03-12] MEDS: busPIRone TAB* 5 MG PO SCH ×2 (08:33→21:47)
[2019-03-12] MEDS: amLODIPine TAB* 5 MG PO SCH (08:33)
[2019-03-12] MEDS: Ferrous Sulfate TAB* 325 MG PO SCH ×2 (08:34→21:48)
[2019-03-12] MEDS: Gabapentin CAP(*) 300 MG PO SCH ×3 (08:34→21:47)
[2019-03-12] MEDS: FLUoxetine CAP* 20 MG PO SCH (08:34)
[2019-03-12] MEDS: Aspirin EC TAB* 81 MG TAB.EC PO SCH (08:34)
[2019-03-12] MEDS: Torsemide TAB 10 MG PO SCH ×2 (08:34→21:48)
[2019-03-12] MEDS: glipiZIDE TAB* 5 MG PO SCH ×2 (08:35→16:43)
[2019-03-12] MEDS: Lidocaine PATCH 5%* 1 PATCH TRANSDERM SCH (08:35)
[2019-03-12] MEDS: Pantoprazole TAB * 40 MG TAB PO SCH (08:35)
--- NOTE | 2019-03-12 10:51 | PN ---
Progress Note - Progress Note Date of Service: 03/12/19 SOAP: Subjective: []Feeling better today. Coughing more and provided sputum sample. Curious if she'll need more blood. Family asking appropriate questions regarding treatment and plan for d/c Medications: Albuterol (Ventolin 2.5 Mg/3 Ml Neb.Zoe*) 2.5 mg INH Q4HR PRN PRN Reason: SOB/WHEEZING Last Admin: 03/12/19 08:32 Dose: 2.5 mg Amlodipine Besylate (Norvasc Tab*) 10 mg PO QAM [facility] Last Admin: 03/12/19 08:33 Dose: 10 mg Aspirin (Aspirin Ec Tab*) 81 mg PO DAILY [facility] Last Admin: 03/12/19 08:34 Dose: 81 mg Atorvastatin Calcium (Lipitor*) 40 mg PO QPM [facility] Last Admin: 03/11/19 17:15 Dose: 40 mg Baclofen (Lioresal Tab*) 10 mg PO TID PRN PRN Reason: SPASM Last Admin: 03/10/19 21:37 Dose: 10 mg Buspirone HCl (Buspar Tab*) 5 mg PO BID [facility] Last Admin: 03/12/19 08:33 Dose: 5 mg Cetirizine HCl (Zyrtec*) 10 mg PO DAILY PRN PRN Reason: Allergy Symptoms Dextrose (Dextrose 50% Vial 50 Ml*) 25 ml IV PUSH .FOR FS < 60 - SS PRN PRN Reason: FS < 60 Enoxaparin Sodium (Lovenox(*)) 40 mg SUBCUT Q24H [facility] Last Admin: 03/11/19 16:21 Dose: 40 mg Ferrous Sulfate (Ferrous Sulfate Tab*) 325 mg PO BID [facility] Last Admin: 03/12/19 08:34 Dose: 325 mg Fluoxetine HCl (Prozac Cap*) 40 mg PO QAM [facility] Last Admin: 03/12/19 08:34 Dose: 40 mg Gabapentin (Neurontin Cap(*)) 300 mg PO TID [facility] Last Admin: 03/12/19 08:34 Dose: 300 mg Glipizide (Glucotrol Tab*) 2.5 mg PO BID WITH MEALS [facility] Last Admin: 03/12/19 08:35 Dose: 2.5 mg Cefepime HCl (Maxipime 1 Gm In Dextrose Duplex (*)) 1 gm in 50 mls @ 100 mls/ hr IV Q12H [facility] Last Admin: 03/12/19 04:49 Dose: 100 mls/hr Insulin Human Lispro (Humalog*) 0 units SUBCUT ACHS [facility]; Protocol Last Admin: 03/12/19 08:32 Dose: 2 units Lidocaine (Lidoderm 5% Patch*) 1 patch TRANSDERM DAILY [facility] Last Admin: 03/12/19 08:35 Dose: 1 patch Metformin HCl (Glucophage*) 500 mg PO BID WITH MEALS [facility] Mometasone Furoate/Formoterol Fumar (Dulera 200/5 Mdi*) 2 puff INH BID [facility]; Protocol Last Admin: 03/12/19 08:29 Dose: 2 puff Morphine Sulfate (Ms Contin(*)) 15 mg PO Q12HR [facility] Last Admin: 03/12/19 08:33 Dose: 15 mg Oxycodone HCl (Roxycodone Tab*) 5 mg PO Q4H PRN PRN Reason: PAIN - SEVERE Last Admin: 03/12/19 01:56 Dose: 5 mg Pantoprazole Sodium (Protonix Tab*) 40 mg PO QAM [facility] Last Admin: 03/12/19 08:35 Dose: 40 mg Pharmacy Profile Note (Lidocaine Patch Remove*) 1 note PATCH OFF 2100 [facility] Last Admin: 03/11/19 21:55 Dose: 1 note Ropinirole HCl (Requip Tab*) 2 mg PO BEDTIME [facility] Last Admin: 03/11/19 21:54 Dose: 2 mg Torsemide (Torsemide) 10 mg PO BID [facility] Last Admin: 03/12/19 08:34 Dose: 10 mg Objective: [] Vital Signs Temp Pulse Resp BP Pulse Ox 97.4 F 66 18 117/69 94 03/12/19 07:33 03/12/19 08:40 03/12/19 08:40 03/12/19 07:33 03/12/19 08:40 A&Ox3, EOMI, involved in plan of care HRR, S1S2 LS clear with improved airflow, R base remains dim., no crackles or wheeze +BS, abd. soft and non-tender, obese, LLQ ostomy Laboratory Results - last 24 hr 03/11/19 03/12/19 03/12/19 20:59 05:09 05:09 WBC 2.3 L RBC 2.93 L Hgb 8.3 L Hct 25 L MCV 87 MCH 28 MCHC 33 RDW 15 Plt Count 211 MPV 8.5 Neut % (Auto) 57.4 Lymph % (Auto) 23.6 Dyer % (Auto) 18.1 Eos % (Auto) 0.3 Baso % (Auto) 0.6 Absolute Neuts (auto) 1.3 L Absolute Lymphs (auto) 0.5 L Absolute Monos (auto) 0.4 Absolute Eos (auto) 0.0 Absolute Basos (auto) 0.0 Absolute Nucleated RBC 0.0 Immature Gran % 9.0 Neutrophils % 59.0 Lymphocytes % 22.0 Reactive Lymphs % 1.0 Monocytes % 8.0 Eosinophils % 1.0 Metamyelocytes % 5.0 H Myelocytes % 4.0 H Nucleated RBC % 1.8 Nucleated RBCs/100 WBC 1.0 H Normal RBC Morphology Not Reportable Polychromasia 1+ Hem Pathologist Commnt Sodium 140 Potassium 3.5 Chloride 93 L Carbon Dioxide 43 H* Anion Gap 4 BUN 17 Creatinine 0.84 Est GFR ( Amer) 81.1 Est GFR (Non-Af Amer) 67.0 BUN/Creatinine Ratio 20.2 H Glucose 115 H POC Glucose (mg/dL) 233 H Calcium 8.7 Total Bilirubin 0.20 AST 23 ALT 27 Alkaline Phosphatase 68 Total Protein 6.3 L Albumin 3.3 Globulin 3.0 Albumin/Globulin Ratio 1.1 Assessment: []Complicated 69 yo female with multiple co-morbidities recently diagnosed with an 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 She has improved daily, however, unfortunately her baseline remains very limited. Discussed the reality that she may not tolerate tx. d/t her co-comorbities and that despite attempts to support her she may actually do worse with therapy (ie: recurrent hospitalizations and risk of r/t severe infections). She understands this and has been motivated to try treatment, though in discussion with her daughter and brothers she is asking appropriate questions regarding the difference between treating and not. At this time I suspect if she does not continue therapy her prognosis is likely a year at most, though she may actually do much better with supportive services only. Plan: []1. PNA: clinically improving, can transition to PO tomorrow - question of aspiration d/t history, will request speech consult 2. Pancytopenia: recovering appropriately 3. SCLC: s/p C1, day 17 today - will delay C2 by one week - family and pt. to consider palliative consult 4. Spinal stenosis with limited mobility: PT and OT assessment 5. DVT proph: Lovenox Dispo: requires inpt. care with IV abx. due to neutropenia, and can transition to PO tomorow - niece will still be living here through the next week, unclear if she can manage at home independently, rehabilitation service consults as above
[2019-03-12] MEDS: Enoxaparin(*) 40 MG/0.4 ML SYR SUBCUT SCH (16:07)
[2019-03-12] MEDS: metFORMIN* 500 MG TAB PO SCH (16:42)
[2019-03-12] MEDS: Atorvastatin* 40 MG TAB PO SCH (18:21)
[2019-03-12] MEDS: rOPINIRole TAB* 1 MG PO SCH (21:48)
[2019-03-12] MEDS: Lidocaine Patch REMOVE* 1 NOTE MISC PATCH OFF SCH (21:49)
[2019-03-13] MEDS: oxyCODONE TAB* 5 MG TAB PO PRN ×3 (03:59→19:54)
[2019-03-13] MEDS: Cefepime 1 GM in Dextrose(*) 1 GM/50 ML BAG IV SCH (04:00)
[2019-03-13 06:03] LABS: Hematocrit 24 % (35-47); Hemoglobin 7.8 g/dL (12.0-16.0); Mean Corpuscular HGB Conc 33 g/dL (31-36); Mean Corpuscular Hemoglobin 29 pg (27-31); Mean Corpuscular Volume 87 fL (80-97); Mean Platelet Volume 8.1 fL (7.4-10.4); Platelet Count 254 10^3/uL (150-450); Red Cell Distribution Width 15 % (10-15); White Blood Count 2.9 10^3/uL (3.5-10.8)
[2019-03-13 06:38] LABS: Microcytosis 3+
[2019-03-13 06:39] LABS: ABS Lymphocytes 0.5 10^3/ul (1.0-4.8); ABS Monocytes 0.4 10^3/ul (0-0.8); ABS Nucleated RBC 0.1 10^3/ul; Eosinophil % 0.4 %; Lymphocyte % 17.1 %; Nucleated Red Blood Cells % 1.8; Polychromasia 1+
[2019-03-13] MEDS: Mometasone/Formoter 200/5 MDI INH SCH ×2 (07:52→19:32)
[2019-03-13] MEDS: Insulin LISPRO* 1 UNITS UNIT SUBCUT SCH ×4 (09:16→21:35)
[2019-03-13] MEDS: glipiZIDE TAB* 5 MG PO SCH ×2 (09:24→16:52)
[2019-03-13] MEDS: metFORMIN* 500 MG TAB PO SCH ×2 (09:24→16:52)
[2019-03-13] MEDS: Aspirin EC TAB* 81 MG TAB.EC PO SCH (09:24)
[2019-03-13] MEDS: busPIRone TAB* 5 MG PO SCH ×2 (09:24→21:33)
[2019-03-13] MEDS: Morphine TAB Extended Release (*) 15 MG TAB.ER PO SCH ×2 (09:24→21:33)
[2019-03-13] MEDS: amLODIPine TAB* 5 MG PO SCH (09:25)
[2019-03-13] MEDS: FLUoxetine CAP* 20 MG PO SCH (09:25)
[2019-03-13] MEDS: Pantoprazole TAB * 40 MG TAB PO SCH (09:25)
[2019-03-13] MEDS: Ferrous Sulfate TAB* 325 MG PO SCH ×2 (09:25→21:34)
[2019-03-13] MEDS: Torsemide TAB 10 MG PO SCH ×2 (09:25→21:35)
[2019-03-13] MEDS: Lidocaine PATCH 5%* 1 PATCH TRANSDERM SCH (09:25)
[2019-03-13] MEDS: Gabapentin CAP(*) 300 MG PO SCH ×3 (09:25→21:34)
--- NOTE | 2019-03-13 10:32 | PN ---
Progress Note - Progress Note Date of Service: 03/13/19 SOAP: Subjective: []Worried about deSATing during ambulation, "I went down to 77 when I went to the bathroom." Feels OK at rest and has been coughing. "At home I only go down to 89." Tells me that she and her family decided they would "see how I do this week" when discussing continuing therapy (discussion yesterday regarding her limited performance status and potential that she will actually do worse on therapy). States concern that she will feel worse with need to go back and forth to treatments. Wants to be full code, however when reviewed concept of intubation and potential inability to wean due to her COPD she states, "Oh I don't want that, I don't want to suffer or have my family suffer." Does not feel ready to sign DNR without reviewing with family. Medications: Albuterol (Ventolin 2.5 Mg/3 Ml Neb.Zoe*) 2.5 mg INH Q4HR PRN PRN Reason: SOB/WHEEZING Last Admin: 03/12/19 20:15 Dose: 2.5 mg Amlodipine Besylate (Norvasc Tab*) 10 mg PO QAM [facility] Last Admin: 03/13/19 09:25 Dose: 10 mg Aspirin (Aspirin Ec Tab*) 81 mg PO DAILY [facility] Last Admin: 03/13/19 09:24 Dose: 81 mg Atorvastatin Calcium (Lipitor*) 40 mg PO QPM [facility] Last Admin: 03/12/19 18:21 Dose: 40 mg Baclofen (Lioresal Tab*) 10 mg PO TID PRN PRN Reason: SPASM Last Admin: 03/10/19 21:37 Dose: 10 mg Buspirone HCl (Buspar Tab*) 5 mg PO BID [facility] Last Admin: 03/13/19 09:24 Dose: 5 mg Cetirizine HCl (Zyrtec*) 10 mg PO DAILY PRN PRN Reason: Allergy Symptoms Dextrose (Dextrose 50% Vial 50 Ml*) 25 ml IV PUSH .FOR FS < 60 - SS PRN PRN Reason: FS < 60 Enoxaparin Sodium (Lovenox(*)) 40 mg SUBCUT Q24H [facility] Last Admin: 03/12/19 16:07 Dose: 40 mg Ferrous Sulfate (Ferrous Sulfate Tab*) 325 mg PO BID [facility] Last Admin: 03/13/19 09:25 Dose: 325 mg Fluoxetine HCl (Prozac Cap*) 40 mg PO QAM [facility] Last Admin: 03/13/19 09:25 Dose: 40 mg Gabapentin (Neurontin Cap(*)) 300 mg PO TID [facility] Last Admin: 03/13/19 09:25 Dose: 300 mg Glipizide (Glucotrol Tab*) 2.5 mg PO BID WITH MEALS [facility] Last Admin: 03/13/19 09:24 Dose: 2.5 mg Cefepime HCl (Maxipime 1 Gm In Dextrose Duplex (*)) 1 gm in 50 mls @ 100 mls/ hr IV Q12H [facility] Last Admin: 03/13/19 04:00 Dose: 100 mls/hr Insulin Human Lispro (Humalog*) 0 units SUBCUT ACHS [facility]; Protocol Last Admin: 03/13/19 09:16 Dose: Not Given Lidocaine (Lidoderm 5% Patch*) 1 patch TRANSDERM DAILY [facility] Last Admin: 03/13/19 09:25 Dose: 1 patch Metformin HCl (Glucophage*) 500 mg PO BID WITH MEALS [facility] Last Admin: 03/13/19 09:24 Dose: 500 mg Mometasone Furoate/Formoterol Fumar (Dulera 200/5 Mdi*) 2 puff INH BID [facility]; Protocol Last Admin: 03/13/19 07:52 Dose: 2 puff Morphine Sulfate (Ms Contin(*)) 15 mg PO Q12HR [facility] Last Admin: 03/13/19 09:24 Dose: 15 mg Oxycodone HCl (Roxycodone Tab*) 5 mg PO Q4H PRN PRN Reason: PAIN - SEVERE Last Admin: 03/13/19 03:59 Dose: 5 mg Pantoprazole Sodium (Protonix Tab*) 40 mg PO QAM [facility] Last Admin: 03/13/19 09:25 Dose: 40 mg Pharmacy Profile Note (Lidocaine Patch Remove*) 1 note PATCH OFF 2100 [facility] Last Admin: 03/12/19 21:49 Dose: 1 note Ropinirole HCl (Requip Tab*) 2 mg PO BEDTIME [facility] Last Admin: 03/12/19 21:48 Dose: 2 mg Torsemide (Torsemide) 10 mg PO BID [facility] Last Admin: 03/13/19 09:25 Dose: 10 mg Objective: [] Vital Signs Temp Pulse Resp BP Pulse Ox 97.7 F 68 20 131/52 94 03/13/19 07:36 03/13/19 07:36 03/13/19 09:25 03/13/19 07:36 03/13/19 07:36 A&Ox3, forgetful but involved care and communicating clearly HRR, S1S2, SR on tele LS dim. to right base with some improvement in airflow Harsh cough +BS, obese, ostomy benign +1 edema bilat. LEs, +PP Laboratory Results - last 24 hr 03/12/19 03/13/19 03/13/19 20:50 05:23 07:38 WBC 2.9 L RBC 2.70 L Hgb 7.8 L Hct 24 L MCV 87 MCH 29 MCHC 33 RDW 15 Plt Count 254 MPV 8.1 Neut % (Auto) 66.6 Lymph % (Auto) 17.1 Beckham % (Auto) 15.1 Eos % (Auto) 0.4 Baso % (Auto) 0.8 Absolute Neuts (auto) 2.0 Absolute Lymphs (auto) 0.5 L Absolute Monos (auto) 0.4 Absolute Eos (auto) 0.0 Absolute Basos (auto) 0.0 Absolute Nucleated RBC 0.1 Immature Gran % 17.0 H Neutrophils % 50.0 Band Neutrophils % 6.0 Lymphocytes % 26.0 Reactive Lymphs % 2.0 Monocytes % 5.0 Metamyelocytes % 6.0 H Myelocytes % 5.0 H Nucleated RBC % 1.8 Platelet Morphology Giant Normal RBC Morphology Not Reportable Polychromasia 1+ Microcytosis 3+ Hem Pathologist Commnt POC Glucose (mg/dL) 98 123 H Assessment: []Complicated 69 yo female with multiple co-morbidities recently diagnosed with an 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 She has improved clinically, though her baseline performance status is very limited. Initial plan to pursue combined modality therapy with C2, however there is a question if she will tolerate this. Plan: []1. PNA: improving - no evidence for aspiration per speech therapy - transition to PO abx. 2. Pancytopenia: recovering appropriately - recurrent anemia, question of GI bleed, check stool occult blood 3. SCLC: s/p C1, day 18 today - will delay C2 by one week - Palliative consult to discuss code status 4. Spinal stenosis with limited mobility: PT and OT - pt. does not want rehab 5. DVT proph: Lovenox Dispo: if stable on PO abx. can consider d/c tomorrow - niece will still be living here through the next week, unclear if she can manage at home independently, home services in place
[2019-03-13] MEDS: Levofloxacin TAB* 750 MG PO SCH (12:39)
[2019-03-13] MEDS: Enoxaparin(*) 40 MG/0.4 ML SYR SUBCUT SCH (16:51)
[2019-03-13] MEDS: Atorvastatin* 40 MG TAB PO SCH (17:59)
[2019-03-13] MEDS: Albuterol 2.5 MG/3 ML NEB.SOL* (0.083%) INH PRN (19:55)
[2019-03-13] MEDS: rOPINIRole TAB* 1 MG PO SCH (21:32)
[2019-03-13] MEDS: Lidocaine Patch REMOVE* 1 NOTE MISC PATCH OFF SCH (21:37)
[2019-03-14] MEDS: oxyCODONE TAB* 5 MG TAB PO PRN ×3 (02:15→13:22)
[2019-03-14] MEDS: Albuterol 2.5 MG/3 ML NEB.SOL* (0.083%) INH PRN ×2 (02:17→09:17)
[2019-03-14 06:09] LABS: Hematocrit 22 % (35-47); Hemoglobin 7.3 g/dL (12.0-16.0); Mean Corpuscular HGB Conc 33 g/dL (31-36); Mean Corpuscular Hemoglobin 29 pg (27-31); Mean Corpuscular Volume 87 fL (80-97); Mean Platelet Volume 7.7 fL (7.4-10.4); Platelet Count 302 10^3/uL (150-450); Red Blood Count 2.56 10^6 /uL (3.70-4.87); Red Cell Distribution Width 15 % (10-15); White Blood Count 4.5 10^3/uL (3.5-10.8)
[2019-03-14 06:43] LABS: ABS Lymphocytes 0.6 10^3/ul (1.0-4.8); ABS Monocytes 0.6 10^3/ul (0-0.8); ABS Neutrophils 3.4 10^3/ul (1.5-7.7); Eosinophil % 0.1 %; Lymphocyte % 12.3 %; Nucleated Red Blood Cells % 0.6
[2019-03-14 06:47] LABS: Polychromasia 1+
[2019-03-14] MEDS: Insulin LISPRO* 1 UNITS UNIT SUBCUT SCH ×3 (08:01→17:01)
[2019-03-14] MEDS: amLODIPine TAB* 5 MG PO SCH (08:16)
[2019-03-14] MEDS: Pantoprazole TAB * 40 MG TAB PO SCH (08:16)
[2019-03-14] MEDS: Gabapentin CAP(*) 300 MG PO SCH ×2 (08:16→13:22)
[2019-03-14] MEDS: Torsemide TAB 10 MG PO SCH (08:17)
[2019-03-14] MEDS: metFORMIN* 500 MG TAB PO SCH (08:17)
[2019-03-14] MEDS: Aspirin EC TAB* 81 MG TAB.EC PO SCH (08:17)
[2019-03-14] MEDS: glipiZIDE TAB* 5 MG PO SCH (08:17)
[2019-03-14] MEDS: busPIRone TAB* 5 MG PO SCH (08:17)
[2019-03-14] MEDS: FLUoxetine CAP* 20 MG PO SCH (08:18)
[2019-03-14] MEDS: Ferrous Sulfate TAB* 325 MG PO SCH (08:18)
[2019-03-14] MEDS: Lidocaine PATCH 5%* 1 PATCH TRANSDERM SCH (08:19)
[2019-03-14] MEDS: Mometasone/Formoter 200/5 MDI INH SCH (09:17)
[2019-03-14] MEDS: Levofloxacin TAB* 750 MG PO SCH (09:56)
[2019-03-14] MEDS: Morphine TAB Extended Release (*) 15 MG TAB.ER PO SCH (09:57)
--- NOTE | 2019-03-14 13:09 | CONSULT ---
Palliative / Hospice Consult Ordering Provider: Adina Jay - PCP-Payal Referal Reason: Goals of care discussion/no bowel regimen/MS contin 15mg q12 - Subjective Code Status: Full Code Advance Directives Location: No Advance Directives - History or Present Illness History or Present Illness: 69yo female with COPD, pancytopenia and recently diagnosed SCLC presents with dyspnea and fatigue. 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 PSHX + tobacco/no drug/no etoh, with children. Daughter Casey Blanchard [phone] is her HCP(in chart), lives on her own near daughter. Studies CXR-retrocardiac infiltrate LLL, ekg-nsr, CTA-R paratracheal adenopathy and cardiomegaly, Wbc 2.9, H/H 7.8/24, plt 254, BUN/Cr 17/.84, egfr 67, tprot 6.3, alb 3.3 and INR 1.15. Pt has been hospitalized 02/10- and 3 ER visits in the last year. Pt was admitted with RLL pneumonia, pancytopenia, COPD and SCLC, treated with antibiotics and blood transfusion x1. All history is from the pt, family and medical record. Lab Values: Abnormal Lab Results 03/13/19 03/13/19 03/14/19 16:46 21:29 05:50 WBC 4.5 RBC 2.56 L Hgb 7.3 L Hct 22 L MCV 87 MCH 29 MCHC 33 RDW 15 Plt Count 302 MPV 7.7 Neut % (Auto) 74.3 Lymph % (Auto) 12.3 [place] % (Auto) 12.9 Eos % (Auto) 0.1 Baso % (Auto) 0.4 Absolute Neuts (auto) 3.4 Absolute Lymphs (auto) 0.6 L Absolute Monos (auto) 0.6 Absolute Eos (auto) 0.0 Absolute Basos (auto) 0.0 Absolute Nucleated RBC 0.0 Immature Gran % 16.0 H Neutrophils % 59.0 Band Neutrophils % 1.0 Lymphocytes % 13.0 Monocytes % 11.0 Eosinophils % 1.0 Metamyelocytes % 10.0 H Myelocytes % 5.0 H Nucleated RBC % 0.6 Normal RBC Morphology Not Reportable Polychromasia 1+ Hem Pathologist Commnt POC Glucose (mg/dL) 160 H 95 Blood Type Antibody Screen Crossmatch 03/14/19 03/14/19 03/14/19 05:50 07:22 11:31 WBC RBC Hgb Hct MCV MCH MCHC RDW Plt Count MPV Neut % (Auto) Lymph % (Auto) [place] % (Auto) Eos % (Auto) Baso % (Auto) Absolute Neuts (auto) Absolute Lymphs (auto) Absolute Monos (auto) Absolute Eos (auto) Absolute Basos (auto) Absolute Nucleated RBC Immature Gran % Neutrophils % Band Neutrophils % Lymphocytes % Monocytes % Eosinophils % Metamyelocytes % Myelocytes % Nucleated RBC % Normal RBC Morphology Polychromasia Hem Pathologist Commnt POC Glucose (mg/dL) 122 H 110 H Blood Type O Positive Antibody Screen Negative Crossmatch See Detail Laboratory Last Values WBC 4.5 10^3/uL (3.5-10.8) 03/14/19 05:50 RBC 2.56 10^6 /uL (3.70-4.87) L 03/14/19 05:50 Hgb 7.3 g/dL (12.0-16.0) L 03/14/19 05:50 Hct 22 % (35-47) L 03/14/19 05:50 MCV 87 fL (80-97) 03/14/19 05:50 MCH 29 pg (27-31) 03/14/19 05:50 MCHC 33 g/dL (31-36) 03/14/19 05:50 RDW 15 % (10-15) 03/14/19 05:50 Plt Count 302 10^3/uL (150-450) 03/14/19 05:50 MPV 7.7 fL (7.4-10.4) 03/14/19 05:50 Neut % (Auto) 74.3 % 03/14/19 05:50 Lymph % (Auto) 12.3 % 03/14/19 05:50 [place] % (Auto) 12.9 % 03/14/19 05:50 Eos % (Auto) 0.1 % 03/14/19 05:50 Baso % (Auto) 0.4 % 03/14/19 05:50 Absolute Neuts (auto) 3.4 10^3/ul (1.5-7.7) 03/14/19 05:50 Absolute Lymphs (auto) 0.6 10^3/ul (1.0-4.8) L 03/14/19 05:50 Absolute Monos (auto) 0.6 10^3/ul (0-0.8) 03/14/19 05:50 Absolute Eos (auto) 0.0 10^3/ul (0-0.6) 03/14/19 05:50 Absolute Basos (auto) 0.0 10^3/ul (0-0.2) 03/14/19 05:50 Absolute Nucleated RBC 0.0 10^3/ul 03/14/19 05:50 Immature Gran % 16.0 % (0-9) H 03/14/19 05:50 Neutrophils % 59.0 % 03/14/19 05:50 Band Neutrophils % 1.0 % (0-8) 03/14/19 05:50 Lymphocytes % 13.0 % 03/14/19 05:50 Reactive Lymphs % 2.0 % (0-6) 03/13/19 05:23 Monocytes % 11.0 % 03/14/19 05:50 Eosinophils % 1.0 % 03/14/19 05:50 Basophils % 1.0 % 03/10/19 12:58 Metamyelocytes % 10.0 % (0-2) H 03/14/19 05:50 Myelocytes % 5.0 % (0-1) H 03/14/19 05:50 Nucleated RBC % 0.6 03/14/19 05:50 Nucleated RBCs/100 WBC 1.0 (0-0) H 03/12/19 05:09 Platelet Morphology Giant 03/13/19 05:23 Normal RBC Morphology Not Reportable 03/14/19 05:50 Polychromasia 1+ 03/14/19 05:50 Microcytosis 3+ 03/13/19 05:23 Hem Pathologist Commnt 03/14/19 05:50 INR (Anticoag Therapy) 1.15 (0.82-1.09) H 03/10/19 12:58 Sodium 140 mmol/L (135-145) 03/12/19 05:09 Potassium 3.5 mmol/L (3.5-5.0) 03/12/19 05:09 Chloride 93 mmol/L (101-111) L 03/12/19 05:09 Carbon Dioxide 43 mmol/L (22-32) H* 03/12/19 05:09 Anion Gap 4 mmol/L (2-11) 03/12/19 05:09 BUN 17 mg/dL (6-24) 03/12/19 05:09 Creatinine 0.84 mg/dL (0.51-0.95) 03/12/19 05:09 Est GFR ( Amer) 81.1 (>60) 03/12/19 05:09 Est GFR (Non-Af Amer) 67.0 (>60) 03/12/19 05:09 BUN/Creatinine Ratio 20.2 (8-20) H 03/12/19 05:09 Glucose 115 mg/dL (70-100) H 03/12/19 05:09 POC Glucose (mg/dL) 110 mg/dL (70-100) H 03/14/19 11:31 Lactic Acid 0.5 mmol/L (0.5-2.0) 03/10/19 12:59 Calcium 8.7 mg/dL (8.6-10.3) 03/12/19 05:09 Total Bilirubin 0.20 mg/dL (0.2-1.0) 03/12/19 05:09 AST 23 U/L (13-39) 03/12/19 05:09 ALT 27 U/L (7-52) 03/12/19 05:09 Alkaline Phosphatase 68 U/L (34-104) 03/12/19 05:09 Troponin I 0.01 ng/mL (<0.04) 03/10/19 12:58 C-Reactive Protein 118.28 mg/L (<8.01) H 03/10/19 12:58 B-Natriuretic Peptide 53 pg/mL (<=100) 03/10/19 12:58 Total Protein 6.3 g/dL (6.4-8.9) L 03/12/19 05:09 Albumin 3.3 g/dL (3.2-5.2) 03/12/19 05:09 Globulin 3.0 g/dL (2-4) 03/12/19 05:09 Albumin/Globulin Ratio 1.1 (1-3) 03/12/19 05:09 Blood Type O Positive 03/14/19 05:50 Antibody Screen Negative 03/14/19 05:50 Crossmatch See Detail 03/14/19 05:50 - Objective Active Medications: Albuterol (Ventolin 2.5 Mg/3 Ml Neb.Zoe*) 2.5 mg INH Q4HR PRN PRN Reason: SOB/WHEEZING Last Admin: 03/14/19 09:17 Dose: 2.5 mg Amlodipine Besylate (Norvasc Tab*) 10 mg PO QAM [facility] Last Admin: 03/14/19 08:16 Dose: 10 mg Aspirin (Aspirin Ec Tab*) 81 mg PO DAILY [facility] Last Admin: 03/14/19 08:17 Dose: 81 mg Atorvastatin Calcium (Lipitor*) 40 mg PO QPM [facility] Last Admin: 03/13/19 17:59 Dose: 40 mg Baclofen (Lioresal Tab*) 10 mg PO TID PRN PRN Reason: SPASM Last Admin: 03/10/19 21:37 Dose: 10 mg Buspirone HCl (Buspar Tab*) 5 mg PO BID [facility] Last Admin: 03/14/19 08:17 Dose: 5 mg Cetirizine HCl (Zyrtec*) 10 mg PO DAILY PRN PRN Reason: Allergy Symptoms Dextrose (Dextrose 50% Vial 50 Ml*) 25 ml IV PUSH .FOR FS < 60 - SS PRN PRN Reason: FS < 60 Enoxaparin Sodium (Lovenox(*)) 40 mg SUBCUT Q24H [facility] Last Admin: 03/13/19 16:51 Dose: 40 mg Ferrous Sulfate (Ferrous Sulfate Tab*) 325 mg PO BID [facility] Last Admin: 03/14/19 08:18 Dose: 325 mg Fluoxetine HCl (Prozac Cap*) 40 mg PO QAM [facility] Last Admin: 03/14/19 08:18 Dose: 40 mg Gabapentin (Neurontin Cap(*)) 300 mg PO TID [facility] Last Admin: 03/14/19 08:16 Dose: 300 mg Glipizide (Glucotrol Tab*) 2.5 mg PO BID WITH MEALS [facility] Last Admin: 03/14/19 08:17 Dose: 2.5 mg Insulin Human Lispro (Humalog*) 0 units SUBCUT ACHS BRAVO; Protocol Last Admin: 03/14/19 12:11 Dose: Not Given Levofloxacin (Levaquin Tab*) 750 mg PO DAILY [facility]; Protocol Last Admin: 03/14/19 09:56 Dose: 750 mg Lidocaine (Lidoderm 5% Patch*) 1 patch TRANSDERM DAILY [facility] Last Admin: 03/14/19 08:19 Dose: 1 patch Metformin HCl (Glucophage*) 500 mg PO BID WITH MEALS [facility] Last Admin: 03/14/19 08:17 Dose: 500 mg Mometasone Furoate/Formoterol Fumar (Dulera 200/5 Mdi*) 2 puff INH BID [facility]; Protocol Last Admin: 03/14/19 09:17 Dose: 2 puff Morphine Sulfate (Ms Contin(*)) 15 mg PO Q12HR [facility] Last Admin: 03/14/19 09:57 Dose: 15 mg Oxycodone HCl (Roxycodone Tab*) 5 mg PO Q4H PRN PRN Reason: PAIN - SEVERE Last Admin: 03/14/19 08:18 Dose: 5 mg Pantoprazole Sodium (Protonix Tab*) 40 mg PO QAM [facility] Last Admin: 03/14/19 08:16 Dose: 40 mg Pharmacy Profile Note (Lidocaine Patch Remove*) 1 note PATCH OFF 2100 [facility] Last Admin: 03/13/19 21:37 Dose: 1 note Ropinirole HCl (Requip Tab*) 2 mg PO BEDTIME [facility] Last Admin: 03/13/19 21:32 Dose: 2 mg Torsemide (Torsemide) 10 mg PO BID [facility] Last Admin: 03/14/19 08:17 Dose: 10 mg Vital Signs: Vital Signs: Temp Pulse Resp BP Pulse Ox 98.4 F 80 20 111/47 99 03/14/19 11:15 03/14/19 11:15 03/14/19 11:15 03/14/19 11:15 03/14/19 11:15 Patient Weight: Weight 100.698 kg Intake and Output: Intake & Output 03/12/19 03/13/19 03/14/19 03/15/19 06:59 06:59 06:59 06:59 Intake Total 1850 1600 840 Output Total 0 Balance 1850 1600 840 Intake: IV Fluids 20 ABX - CEFEPIME 20 IVPB 50 60 ABX - CEFEPIME 50 60 Oral 1800 1520 840 Output: Urine 0 Other: Estimated Void Medium Medium # Voids 1 4 ADLs: Meal Record Start: 03/10/19 16: 11 Freq: DAILY@0900,1400,1800 Status: Active Protocol: Created 03/10/19 16:11 System (Rec: 03/10/19 16:11 System [id number]) Document 03/10/19 18:00 [id number] (Rec: 03/10/19 22:07 [id number] TELE-C08) Document 03/11/19 09:00 [id number] (Rec: 03/11/19 14:59 [id number] TELE-C01) Document 03/11/19 14:00 [id number] (Rec: 03/11/19 15:00 [id number] TELE-C01) Document 03/11/19 18:00 [id number] (Rec: 03/11/19 20:07 [id number] TELE-C07) Document 03/12/19 09:00 [id number] (Rec: 03/12/19 14:28 [id number] TELE-C07) Document 03/12/19 14:00 [id number] (Rec: 03/12/19 14:29 [id number] TELE-C07) Document 03/12/19 18:00 [id number] (Rec: 03/12/19 18:30 [id number] TELE-C07) Document 03/13/19 09:00 [id number] (Rec: 03/13/19 09:58 [id number] TELE-C07) Document 03/13/19 13:56 [id number] (Rec: 03/13/19 13:57 [id number] TELE-C07) Document 03/13/19 18:00 [id number] (Rec: 03/13/19 18:11 [id number] TELE-C13) Intake and Output Start: 03/10/19 12: 14 Freq: Status: Active Protocol: Created 03/10/19 12:14 System (Rec: 03/10/19 12:14 System [id number]) Document 03/10/19 13:41 [id number] (Rec: 03/10/19 13:41 [id number] ED-C19) Intake and Output Start: 03/10/19 16: 11 Freq: DAILY@0600,1400,2200 Status: Active Protocol: Created 03/10/19 16:11 System (Rec: 03/10/19 16:11 System [id number]) Document 03/10/19 22:00 [id number] (Rec: 03/10/19 22:21 [id number] TELE-C08) Document 03/11/19 01:19 [id number] (Rec: 03/11/19 01:26 [id number] TELE-C07) Document 03/11/19 06:00 [id number] (Rec: 03/11/19 07:47 [id number] TELE-M04) Document 03/11/19 14:00 [id number] (Rec: 03/11/19 15:00 [id number] TELE-C01) Document 03/11/19 21:48 [id number] (Rec: 03/11/19 21:49 [id number] TELE-C07) Document 03/12/19 06:00 [id number] (Rec: 03/12/19 07:11 [id number] TELE-C09) Document 03/12/19 21:28 [id number] (Rec: 03/12/19 21:28 [id number] TELE-C09) Document 03/13/19 06:00 [id number] (Rec: 03/13/19 06:54 [id number] TELE-C07) Document 03/13/19 13:57 [id number] (Rec: 03/13/19 13:58 [id number] TELE-C07) Document 03/13/19 22:00 [id number] (Rec: 03/13/19 22:14 [id number] TELE-C09) Document 03/14/19 06:00 [id number] (Rec: 03/14/19 06:08 [id number] TELE-C11) Head: Symmetrical Eyes: No Scleral Icterus Ears/Nose/Mouth/Throat: NL Teeth, Lips, Gums Neck: NL Appearance and Movements; NL JVP Respiratory: Symmetrical Chest Expansion and Respiratory Effort Neurological: Alert and Oriented x 3 - Assessment Assessment: 69yo female with COPD, pancytopenia, spondylopathy and recently diagnosed SCLC presents with RLL pneumonia - Plan Consult Plan (MU): Palliative Plan: Long discussion with pt and niece joined her later. Pt has a good understanding of her medical issues. Currently her anemia is impacting her COPD and limiting her chemo. Pt is interested in getting more chemo. She also states her breathing and spinal issues are her main concerns. We discussed MOLST form which she states she filled out with her son and daughter and needs to be signed but they can't find it now. Pt wanted no cpr , no intubation, no feeding tube, she wants limited intervention, return to hospital, determine use for antibiotic and trial of fluids and trial of noninvasive ventilation. When I discussed with daughter over the phone she said they had decided for CPR, niece interrupted and said it was upsetting the pt and requested we stop discussing it which we did. I told them any provider can sign the form once they fill it out. Also discussed hospice wh pt is familiar with since her and sisters used it. Pt is not hospice eligible yet. She would like to at home but not be a burden to her family and would like to pursue medical interventions as long as she has a good quality of life e.g. she could converse with people. Pt will be discharged to home today after transfusion and resume [facility] PT/OT/SW and RN services. Case management also gave her a list of home health aides for when the niece leaves. Pt and niece also got upset about why people kept talking about dying. Pt alternates between wanting therapy and saying "just throw me out when I'm no good". I offered research software engineer visit but she declined. She lives in a trailer on her daughters property. KPS 50%, PPS 50% - Time On Unit Date of Evaluation: 03/14/19 Hospice Consult Time in: 12:00 Hospice Consult Time Out: 13:30 Hospice Consult Time Total: 90 > 50% of Time Spend In Counseling or Coordinating Care: Yes
[2019-03-14 16:14] VITALS: BP 121/45
[2019-03-14] MEDS: Enoxaparin(*) 40 MG/0.4 ML SYR SUBCUT SCH (17:01)
--- NOTE | 2019-03-14 21:30 | DS ---
CC: Dr. Latesha Hillman; Dr. Garcia; Dr. Lepe * DISCHARGE SUMMARY: DATE OF ADMISSION: 03/10/19 DATE OF DISCHARGE: 03/14/19 PRIMARY CARE PROVIDER: Dr. Latesha Hillman. PRIMARY ONCOLOGIST: Dr. Ricco Garcia. CONSULTING PALLIATIVE PHYSICIAN: Dr. Roma Jeffers. ATTENDING PHYSICIAN: Dr. Colton Lauren.* (DICTATED BY MICHAELLE BONE) DISCHARGING PROVIDER: MICHAELLE Bone PRIMARY DISCHARGE DIAGNOSES: 1. Community-acquired pneumonia - no evidence of aspiration per Speech Therapy. 2. Pancytopenia secondary to chemotherapy with an associated iron-deficiency anemia likely secondary to chronic gastrointestinal bleed. 3. Limited stage small-cell lung cancer, status post cycle 1 of carboplatin and etoposide. 4. Cervical stenosis and lumbar compression fracture. 5. Chronic obstructive pulmonary disease. DISCHARGE MEDICATIONS: 1. Nebulized albuterol 2.5 mg inhaled q.4 hours as needed for shortness of breath. 2. Amlodipine 10 mg p.o. daily. 3. Aspirin 81 mg p.o. daily. 4. Baclofen 10 mg p.o. 3 times daily as needed. 5. Symbicort 2 puffs inhaled twice daily. 6. BuSpar 5 mg p.o. twice daily. 7. Fluoxetine 40 mg p.o. daily. 8. Gabapentin 300 mg p.o. 3 times daily. 9. Glipizide/metformin 2.5/250 mg 1 tablet p.o. twice daily. 10. Loratadine 10 mg p.o. daily. 11. Potassium chloride 10 mEq p.o. twice daily. 12. Requip 2 mg p.o. at bedtime. 13. Crestor 20 mg p.o. at bedtime. 14. Torsemide 10 mg p.o. twice daily. 15. Poly-Iron 150 mg p.o. daily. 16. Levaquin 750 mg p.o. daily x7 days. 17. Morphine extended release 15 mg p.o. twice daily. 18. Oxycodone 5 mg p.o. q.4 hours as needed for pain. 19. Protonix 40 mg p.o. daily. HOSPITAL IMAGIN. Chest x-ray, 03/10/19, shows suggestion of retrocardiac infiltrate, which was suggestive of left lower lobe pneumonia. Findings are similar to that seen on 02/24/19. 2. CTA of the chest shows no evidence of PE. There is a right lower lobe consolidation with air bronchogram suggestive of a right lower lobe pneumonia. The right adrenal mass unchanged from prior exam. HOSPITAL COURSE: This is a 69-year-old female with multiple comorbidities, who was recently hospitalized for approximately 2 weeks initially with complaints of paraesthesias found to be secondary to cervical stenosis and some-what incidental finding of a limited-stage small cell lung cancer for which she underwent her first-cycle chemotherapy with carboplatin and etoposide as an inpatient. She was discharged to home on 02/27/19 and returned to the hospital on 03/10/19 with increased dyspnea. The patient was initially afebrile. Initially hypoxic despite up to 10 L via nasal cannula and normotensive. She had a hemoglobin of 6.9 g/dL. Blood cultures were collected, which were negative and she eventually was found to have a right lower lobe pneumonia. Sputum grew enterococcus, stenotrophomonas, and corynebacterium. She was treated with cefepime and eventually transitioned to oral Levaquin. She was transfused 1 unit of packed red blood cells at the time of admission and her hemoglobin improved appropriately from 6.9 to 7.8 g/dL. The patient's respiratory status improved throughout her hospitalization. Stool was tested for occult blood, which was positive and had been positive during her prior admission. She was seen by Gastroenterology at that time regarding the heme- positive stool, but her hemoglobin had been relatively stable and given her other multiple comorbidities, decision was made to hold off on endoscopy at that time. During this hospitalization, her hemoglobin again has been relatively stable improving from 6.9 to 7.8, and on the day of discharge was at 7.3. Recommendation for 1 additional unit of packed red blood cells at the time of discharge. Endoscopy does not seem emergent, but upper endoscopy would certainly be warranted given her persistent anemia and heme- positive stool. Her anemia is likely exacerbated by the recent chemotherapy. The patient was neutropenic at the time of admission, but afebrile and her neutropenia did recover as expected. DISPOSITION AND FOLLOWUP PLAN: The patient is being discharged to home in stable condition. She generally lives alone, but her niece from [place] has been staying with her and will plan to stay with her for an additional week. She is quite deconditioned from her multiple hospitalizations and chemotherapy, and discussed subacute rehab. The patient was unwilling to consider this. The patient's cycle 2 of chemotherapy was scheduled to start 03/17/19, which is next week, but will be delayed for an additional week. She will be seen in the oncology clinic early next week for followup from this hospitalization. Referral has been initiated for outpatient consultation with Dr. Lepe to consider upper endoscopy. She will be continued on a PPI and oral iron. We will consider IV iron infusions as well as to hopefully limit the number of transfusions necessary. MICHAELLE BONE [id number]/[facility] #: [id number] MTDNoah
== END 2019-03-14 16:45 | disposition home or self-care (01) | DRG 193 ==
LOC: ED 11:58 → MEDTELE 15:37
PROVIDERS: ADMIT Internal Medicine Hematology & Oncology; ATTEND Internal Medicine Hematology & Oncology
PROC: 30233N1 Transfusion of Nonautologous Red Blood Cells into Peripheral Vein, Percutaneous Approach (ICD-10-PCS; principal; 2019-03-10)
DX: J18.1 Lobar pneumonia, unspecified organism (principal); D61.810 Antineoplastic chemotherapy induced pancytopenia; C34.90 Malignant neoplasm of unspecified part of unspecified bronchus or lung; J44.0 Chronic obstructive pulmonary disease with (acute) lower respiratory infection; K92.2 Gastrointestinal hemorrhage, unspecified; T45.1X5A Adverse effect of antineoplastic and immunosuppressive drugs, initial encounter; E11.9 Type 2 diabetes mellitus without complications; I50.9 Heart failure, unspecified; I11.0 Hypertensive heart disease with heart failure; J44.9 Chronic obstructive pulmonary disease, unspecified; K21.9 Gastro-esophageal reflux disease without esophagitis; M19.90 Unspecified osteoarthritis, unspecified site; M81.0 Age-related osteoporosis without current pathological fracture; H26.9 Unspecified cataract; F41.9 Anxiety disorder, unspecified; F32.9 Major depressive disorder, single episode, unspecified; F17.210 Nicotine dependence, cigarettes, uncomplicated; G47.30 Sleep apnea, unspecified; E66.9 Obesity, unspecified; K43.9 Ventral hernia without obstruction or gangrene; M48.8X6 Other specified spondylopathies, lumbar region; G25.81 Restless legs syndrome; E78.5 Hyperlipidemia, unspecified; Z93.3 Colostomy status; Z80.1 Family history of malignant neoplasm of trachea, bronchus and lung; Z86.718 Personal history of other venous thrombosis and embolism; Z86.711 Personal history of pulmonary embolism; Z85.89 Personal history of malignant neoplasm of other organs and systems; Z82.49 Family history of ischemic heart disease and other diseases of the circulatory system; Y92.9 Unspecified place or not applicable; Z88.0 Allergy status to penicillin; Z88.8 Allergy status to other drugs, medicaments and biological substances; Z80.6 Family history of leukemia; Z68.39 Body mass index [BMI] 39.0-39.9, adult; Z79.82 Long term (current) use of aspirin; B96.89 Other specified bacterial agents as the cause of diseases classified elsewhere
CPT/HCPCS: 36415; 71046; 71275; 80048; 80053; 82272; 83605; 83880; 84484; 85025; 85060; 85610; 86140; 86850; 86900; 86901; 86922; 87040; 87070; 87077; 87186; 87205; 93005; 94640; 99232; 99233; 99239; 99284; A9270-GY; G8978-GP-CJ; G8979-GP-CI; G8980-GP-CI; G8987-GO-CK; G8988-GO-CJ; J0692; J1650; P9040; Q9967